=== PATIENT | male | born 1975 | race Caucasian/White ===

== ENCOUNTER 2020-08-13 11:00 | Outpatient (REF) | payer OTHER, SELFPAY | END 2020-08-13 11:01 | disposition home or self-care (01) | LOC: HO.LAB 11:00 | PROVIDERS: Visit Provider Internal Medicine | DX: Z20.828 Contact with and (suspected) exposure to other viral communicable diseases (principal) | CPT/HCPCS: 87635 ==

== ENCOUNTER 2023-02-14 12:46 | Emergency (ER) | payer OTHER, SELFPAY ==
[2023-02-14 13:03] VITALS: BP 129/85; PULSE 107; RESP 17; TEMP 36.9; O2SAT 100; BMI 27.1
--- NOTE | 2023-02-14 13:12 | ED_ITS ---
HPI - General Adult General Chief complaint: General Medical Stated complaint: multiple issues Time Seen by Provider: 02/14/23 13:06 Source: patient Mode of arrival: ambulatory Limitations: no limitations History of Present Illness HPI narrative: [age] year old male came in for painful penile erection since 06:00 (7 hours ago). Had sexual intercourse with his partner erection remained after intercourse until now, patient had similar episode several times in the past needed to be drained 1 time in the past, patient declined using any sexual stimulating medication. Related Data Allergies Allergy/AdvReac Type Severity Reaction Status Date / Time No Known Allergies Allergy Unverified 07/04/20 16:21 [No Known Allergies*] Review of Systems Review of Systems: All other systems are reviewed and are negative Constitutional: Reports as per HPI and Reports no additional constitutional complaints Eyes: Reports as per HPI and Reports no additional eye complaints Reports system reviewed and no additional complaints, except as documented Cardiovascular: Reports as per HPI and Reports no additional cardiovascular complaints Respiratory: Reports as per HPI and Reports no additional respiratory complaints Gastrointestinal: Reports as per HPI and Reports no additional gastrointestinal complaints Genitourinary: Reports no additional female genitourinary complaints Musculoskeletal: Reports no additional musculoskeletal complaints Skin/Breast: Reports system reviewed and no additional complaints, except as docu Psychiatric: Reports no additional psychiatric complaints Endocrine: Reports no additional endocrine complaints Hematologic/Lymphatic: Reports no additional hematologic/lymphatic complaints Allergic/Immunologic: Reports no additional allergic/immunologic complaints Reports system reviewed and no additional complaints, except as documented and Reports Abnormal speech present [facility] Social History Social History Alcohol intake: never Smoked in Last 30 Days: Yes Use of substances other than those prescribed or required for medical reasons: No Advance Directives: No Advance Directives Information Provided: Yes Physical Exam ED Vital Signs: Vital Signs - 24 hr 02/14/23 13:03 Temperature 98.4 F Pulse Rate 107 H Respiratory Rate 17 Blood Pressure 129/85 Pulse Oximetry 100 Oxygen Delivery Method Room Air BMI result Body Mass Index 27.1 Vital signs have been reviewed as appeared to be correct. Blood pressure normal. Heart rate normal. Respiration rate normal. Temperature normal. Oxygen saturation normal. Appearance: Alert. Oriented X3. No acute distress. Head: Normal external exam. Normocephalic. Atraumatic. No Leon signs noted. No raccoon eyes noted Eyes: PERRLA. EOMI. Conjunctiva and sclera normal. Eyelids normal. ENT: TM's Normal. Pharynx normal. Uvula midline. Moist mucous membranes. No trismus noted. No drooling noted. No muffled voice noted. Neck: Normal inspection. Neck supple. FROM. No adenopathy. Thyroid Normal. No meningeal signs. No neck mass noted. CVS: Normal heart rate and rhythm. Heart sound normal. No murmurs noted. Pulses normal throughout. Respiratory: No respiratory distress. Painless inspiration. Breath sounds normal. No wheezes/rales/rhonchi noted. Chest nontender. No accessory muscle usage noted or decreased air movement noted. Abdomen: Soft and nontender. Bowel sounds normal in all 4 quadrants. No distention noted. No organomegaly noted. No visible injury noted. exam: Uncircumcised, incomplete reduction of the penis that is tender to touch, no testicular swelling or tenderness. Back: No CVA tenderness. Full range of motion noted. Skin: Skin warm and dry. Normal skin color. Normal skin turgor. No rashes/lesions/lacerations noted. Extremities: No lower extremity edema. Extremities exhibit normal range of motion. Extremities nontender. Neuro: Oriented X 3. Cranial nerve exam: II-XII are grossly intact No motor deficit. No sensory deficit. Reflexes normal. Course Course Course Narrative: 47-year-old male with history of priapism came in with about 7 hours of painful erection, patient was given terbutaline subQ in the emergency department and oxycodone and also after applying ice. With complete resolve of the priapism. Medical Decision Making Differential Diagnosis Differential Diagnoses: The differential diagnosis associated with the presentation includes (Priapism) Discharge Plan Discharge Clinical Impression: Priapism Patient Disposition: Home, Self-Care Instructions: Priapism (ED) Additional Instructions: Follow-up with your urologist as scheduled. Referrals: Snow Velasquez MD [Primary Care Provider] -
--- NOTE | 2023-02-14 13:34 | PC.NURSE ---
pt ate half of cup of jello and had some water.
[2023-02-14] MEDS: oxyCODONE HCl Immed Release 5 MG TABLET PO (14:15)
[2023-02-14] MEDS: Terbutaline Sulfate 1 MG/ML VIAL 0.25 MG SUBCUT (14:16)
[2023-02-14 14:59] VITALS: BP 131/79; PULSE 112; RESP 16; O2SAT 98
== END 2023-02-14 15:08 | disposition home or self-care (01) ==
PROVIDERS: Emergency Provider Emergency Medicine; PCP Internal Medicine
DX: N48.30 Priapism, unspecified (principal); N48.89 Other specified disorders of penis
CPT/HCPCS: 99283; 99284

== ENCOUNTER 2023-03-15 09:27 | Emergency (ER) | payer OTHER, SELFPAY ==
[2023-03-15 09:36] VITALS: BP 130/79; PULSE 115; RESP 19; TEMP 36.6; O2SAT 97; BMI 27.4
--- NOTE | 2023-03-15 09:54 | PC.NURSE ---
Pt reporting priapism is happening every other morning, and no medications are helping anymore. He reports that he is in 10/10 pain, is able to urinate but does cause some difficulty. PT reporting this is now affecting his quality of life and needs to find out what is causing this to happen so frequently. Reports that sometimes sexual activity will help but not always, and that it mostly happens in the morning when he wakes up.
[2023-03-15 10:12] VITALS: PULSE 95; O2SAT 98
[2023-03-15] MEDS: oxyCODONE HCl Immed Release 5 MG TABLET PO (10:46)
[2023-03-15] MEDS: Terbutaline Sulfate 1 MG/ML VIAL 0.25 MG SUBCUT (10:47)
[2023-03-15] MEDS: Lidocaine HCl 1 % MPF 30 ML VIAL 10 ML SUBCUT (10:48)
[2023-03-15 11:50] VITALS: BP 131/76; PULSE 109; RESP 16; TEMP 37; O2SAT 97
--- NOTE | 2023-03-15 11:55 | ED_ITS ---
HPI - Male Genitourinary General Chief complaint: Urogenital-Male Stated complaint: Priapism Time Seen by Provider: 03/15/23 09:58 Source: patient Mode of arrival: ambulatory Limitations: no limitations History of Present Illness HPI Narrative: 47-year-old male presents with painful erection since approximately 6:00 a.m. this morning. Patient has history of idiopathic priapism. He took terbutaline prior to arrival. Currently he has a pain level that as a 10/10. There is no clear relieving or exacerbating features. He denies any urinary frequency, urgency or dysuria. This is similar to previous episodes. Pain that he does not radiate. The pain is pressure and feels like something is going to explode. Related Data Allergies Allergy/AdvReac Type Severity Reaction Status Date / Time No Known Allergies Allergy Verified 03/15/23 09:35 [No Known Allergies*] Review of Systems Review of Systems: CONSTITUTIONAL: Denies weight loss, fever and chills. HEENT: Denies changes in vision and hearing. RESPIRATORY: Denies SOB and cough. CV: Denies palpitations no CP. GI: Denies abdominal pain, nausea, vomiting and diarrhea. : Denies dysuria and urinary frequency. MSK: Denies myalgia and joint pain. SKIN: Denies rash and pruritus. NEUROLOGICAL: Denies headache and syncope. PSYCHIATRIC: Denies recent changes in mood. Denies anxiety and depression. All other ROS are negative unless in HPI [facility] Social History Social History Alcohol intake: current Alcohol type: beer Smoked in Last 30 Days: No Use of substances other than those prescribed or required for medical reasons: Yes Substance Use Type: Marijuana Advance Directives: No Advance Directives Information Provided: Yes Physical Exam Vital Signs: Vital Signs: Last Vital Signs Temp 98.6 F 03/15/23 11:50 Pulse 100 03/15/23 13:05 Resp 16 03/15/23 13:08 BP 129/76 03/15/23 13:05 Pulse Ox 97 03/15/23 11:50 O2 Del Method Room Air 03/15/23 11:50 BMI result Body Mass Index 27.4 GEN: Well developed, no acute distress, alert, oriented HEENT: Normocephalic, atraumatic, normal external ears, nose appears normal Eyes: Normal to appearance Neck: Supple, no lymphadenopathy Respiratory: Talks in complete sentences, no respiratory distress : Persistent erection, tender to palpation, no deformities, erythematous changes Extremities: No clubbing cyanosis or edema Neurologic: No focal neurologic deficits, cranial nerves 2-12 intact, gait normal Skin: No rash Course Course Course Narrative: Patient presents with priapism. Took oral terbutaline at home which did not improve his symptoms. There is no demonstrable evidence that oral terbutaline does help for priapism. Will attempt subcutaneous terbutaline however. This is not effective, will withdraw blood and inject phenylephrine. Patient is aware of this. Also will provide the patient with a dorsal nerve block for symptomatic relief. Reevaluation(s) Reevaluation #1: doing much better after phenylapherine. Wll d/c now. follow up with urology. Time: 13:36 Medications Administered Discontinued Medications Generic Name Dose Route Start Last Admin Trade Name Freq PRN Reason Stop Dose Admin Hydromorphone HCl 0.5 mg 03/15/23 12:50 03/15/23 13:08 Hydromorphone Hcl 0.5 Mg/0.5 Ml Syringe IVPUSH 03/15/23 12:51 0.5 mg ONCE ONE Administration Protocol Lidocaine HCl 10 ml 03/15/23 10:45 03/15/23 10:48 Lidocaine Hcl 1 % Mpf 30 Ml Vial SUBCUT 03/15/23 10:46 10 ml ONCE ONE Administration Oxycodone HCl 5 mg 03/15/23 10:21 03/15/23 10:46 Oxycodone Hcl Immed Release 5 Mg Tablet PO 03/15/23 10:22 5 mg ONCE ONE Administration Phenylephrine HCl 0 mg 03/15/23 12:15 03/15/23 13:05 Phenylephrine Hcl 10 Mg/Ml Vial INTRACAVER 03/15/23 12:16 10 mg ONCE ONE Administration Terbutaline Sulfate 0.25 mg 03/15/23 10:21 03/15/23 10:47 Terbutaline Sulfate 1 Mg/Ml Vial SUBCUT 03/15/23 10:22 0.25 mg ONCE ONE Administration Medical Decision Making Medical Decision Making MDM Narrative: Patient presents with priapism, etiology is unclear. See coarse Differential Diagnosis Differential Diagnoses: The differential diagnosis associated with the pres entation includes (Priapism) Priapism Admission/Observation Consideration of admission/observation: Escalation of care including admission/observation considered External Record Review Previous emergency visit Prescription Management I considered prescription management with: Pain Medication Procedures Nerve Block Nerve Block 1: Time out performed: Yes Local Anesthetic: lidocaine 1% Nerve Blocks: other (Dorsal nerve penis) Procedure Successful: Yes Patient Tolerated Procedure: well Complications: none Penile Procedure Time Out Performed: Yes Indication: priapism management Procedural Sedation: No Local Anesthesia Used: lidocaine 1% without epi Amount of anesthesia used (mL): 2 Priapism Management: aspiration and phenylephrine injection Patient Tolerated Procedure: well and no complications Complications: none Discharge Plan Discharge Clinical Impression: Priapism Patient Disposition: Home, Self-Care Instructions: Priapism (ED) Referrals: Kalpesh Mathew MD [Physician] -
[2023-03-15 13:05] VITALS: BP 129/76; PULSE 100
[2023-03-15] MEDS: Phenylephrine HCL 10 MG/ML VIAL INTRACAVER (13:05)
[2023-03-15 13:08] VITALS: RESP 16
[2023-03-15] MEDS: HYDROmorphone HCl 0.5 MG/0.5 ML SYRINGE IVPUSH (13:08)
== END 2023-03-15 14:13 | disposition home or self-care (01) ==
PROVIDERS: Emergency Provider Emergency Medicine; PCP Internal Medicine
DX: N48.30 Priapism, unspecified (principal); N48.89 Other specified disorders of penis
CPT/HCPCS: 54220; 96372; 96374; 99284; J1170; J2370

== ENCOUNTER 2023-10-13 19:54 | Emergency (ER) | payer OTHER, SELFPAY ==
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
[2023-10-13 20:08] VITALS: BP 136/91; PULSE 102; O2SAT 99
[2023-10-13 20:13] VITALS: BMI 26.1
[2023-10-13 20:18] VITALS: BP 122/70; PULSE 91; RESP 16; TEMP 36.6; O2SAT 97
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
[2023-10-13] MEDS: Ketorolac Tromethamine 30 MG/ML VIAL IM (21:13)
[2023-10-13] MEDS: Morphine Sulfate 10 MG/ML CARTRIDGE 8 MG IM (21:14)
[2023-10-13] MEDS: oxyCODONE HCl Immed Release 5 MG TABLET PO (22:36)
[2023-10-13] MEDS: Acetaminophen 325 MG TABLET 975 MG PO (22:36)
== END 2023-10-13 22:52 | disposition home or self-care (01) ==
PROVIDERS: Emergency Provider Emergency Medicine; PCP Internal Medicine
DX: S46.912A Strain of unspecified muscle, fascia and tendon at shoulder and upper arm level, left arm, initial encounter (principal); G89.11 Acute pain due to trauma; R07.89 Other chest pain; V43.52XA Car driver injured in collision with other type car in traffic accident, initial encounter; Y93.9 Activity, unspecified; Y92.9 Unspecified place or not applicable; Y99.9 Unspecified external cause status
CPT/HCPCS: 71046; 73030; 96372; 99284; J1885; J2270

== ENCOUNTER 2023-12-08 16:42 | Emergency (ER) | payer OTHER, SELFPAY ==
--- NOTE | ~2023-12-08 | XR_ITS ---
EXAMINATION: XR CHEST CLINICAL INFORMATION: Cough. COMPARISON: Chest radiograph 10/13/2023. TECHNIQUE: Frontal view of the chest was obtained. FINDINGS: Mild interstitial prominence. No focal consolidation, pleural effusion or pneumothorax. Normal heart size. No acute osseous findings. Visualized upper abdomen is within normal limits. XR/XR chest 1V IMPRESSION: Findings suggesting mild small airways disease without consolidation or pleural effusion.
--- NOTE | 2023-12-08 17:06 | ED.FEVER ---
HPI - Fever General Chief Complaint: Upper Respiratory Symptoms Stated Complaint: fever since wednesday, body aches, vomiting Time Seen by Provider: 12/08/23 19:18 Source: patient Mode of arrival: ambulatory Limitations: no limitations History of Present Illness HPI Narrative: 48-year-old male presents to the ED for coughing, body aches, rhinorrhea, sneezing, since Wednesday. Patient states also fibromyalgia exacerbation. Patient denies any chest pain, shortness of breath, or coughing up blood. Patient states no one at home sick. Related Data Previous Rx's Medication Instructions Recorded ibuprofen 600 mg tablet 600 mg PO Q6H PRN pain #14 tabs 10/13/23 oxycodone 5 mg tablet 5 mg PO Q6H PRN pain #8 tabs 10/13/23 benzonatate 200 mg capsule 200 mg PO TID PRN cough 5 days #15 12/08/23 caps naproxen 500 mg tablet 500 mg PO BID PRN pain 7 days #14 12/08/23 tabs Allergies Allergy/AdvReac Type Severity Reaction Status Date / Time No Known Allergies Allergy Verified 12/08/23 17:06 [No Known Allergies*] Review of Systems Review of Systems: URI symptoms sneezing dry cough rhinorrhea Yes all other systems are reviewed and are negative [facility] Social History Social History Alcohol intake: current Alcohol type: beer Substance Use Type: Marijuana Advance Directives: No Advance Directives Information Provided: Yes Physical Exam Vital Signs: Vital Signs: Last Vital Signs Temp 102.1 F H 12/08/23 20:18 Pulse 120 H 12/08/23 20:18 Resp 20 12/08/23 20:18 BP 123/74 12/08/23 20:18 Pulse Ox 94 12/08/23 20:18 O2 Del Method Room Air 12/08/23 20:18 BMI result Body Mass Index 25.8 Const: General: cooperative, healthy appearing, comfortable, no acute distress, well developed, alert, awake and Physically active Orientation/consciousness: oriented to person, oriented to place, oriented to time and patient oriented x3 HEENT: Head: Yes normal to inspection, Yes No palpable skull fracture present, Yes normocephalic, Yes atraumatic and No abrasion Ears: hearing grossly normal bilaterally, external ears normal, TM's normal bilaterally, TM normal on the right, TM normal on the left, EAC's normal, mastoids normal and no periauricular adenopathy Throat: Yes posterior oropharynx normal, Yes tonsils normal and Yes uvula midline Eyes: General: appearance normal, both eyes and all related structures Neck: Neck: Yes normal visual inspection, Yes full ROM, Yes no lymphadenopathy, Yes no meningeal signs, Yes trachea midline, Yes supple, No anterior neck swelling and No tender Chest: Chest palpation & inspection: normal inspection of the chest and normal palpation of entire chest wall Resp: Effort & Inspection: normal respiratory effort and able to speak in complete sentences Auscultation: clear to auscultation bilaterally Cardio: Jugular venous distension: no JVD Heart sounds: S1 normal heart sound present and S2 normal heart sound present GI: Inspection: Yes normal to inspection Palpation (GI): Soft to palpation, not firm, nontender, no guarding and not rigid : General: No CVA tenderness and Yes no CVA tenderness Back/Spine/Pelvis: Back: no CVA tenderness, No CVA tenderness and No back tenderness Skin: General skin exam: no rashes or lesions noted, elasticity normal and turgor normal Neuro: General: oriented to person, oriented to place, oriented to time, patient oriented x3, gait normal, tone normal, moves all extremities, Normal light touch and pain sensation, no meningeal signs, no focal motor deficits, CN's II-XI intact bilaterally and normal sensation to monofilament Extrem: General: Yes normal to inspection, Yes full ROM and Yes capillary refill normal Psych: Appearance: grossly normal, well kempt and not disheveled Course Course Course Narrative: RME: 48 year-old M w/PMHx Fibromyalgia presenting to the ED c/o fever (Tmax 102), myalgias, SOB, dry cough/sneezing & sore throat x Wednesday. denies sick contacts. Took 2 COVID tests at home which were negative. Took NyQuil around 1PM & Percocet around 2PM (for body aches). Febrile and tachycardic in triage likely from viral etiology. Low suspicion for severe sepsis viral testing, rapid strep, CXR Full HPI, ROS and PE to be performed by primary ED provider. Medications Administered Discontinued Medications Generic Name Dose Route Start Last Admin Trade Name Freq PRN Reason Stop Dose Admin Benzonatate 200 mg 12/08/23 20:21 12/08/23 20:40 Benzonatate 100 Mg Capsule PO 12/08/23 20:22 200 mg ONCE ONE Administration Ibuprofen 800 mg 12/08/23 20:21 12/08/23 20:39 Ibuprofen 800 Mg Tablet PO 12/08/23 20:22 800 mg ONCE ONE Administration Medical Decision Making Medical Decision Making [facility] Narrative: 48-year-old male presents to the ED with URI symptoms. Patient has positive flu. Symptoms since Wednesday. Patient denied any distress. Febrile tachy from viral syndrome will give Motrin and Tessalon Perles. Patient explained worrisome signs and informed to return to the ED if she has them. Differential Diagnosis Differential Diagnoses: The differential diagnosis associated with the presentation includes (COVID, influenza, RSV) Admission/Observation Consideration of admission/observation: Escalation of care including admission/observation considered Lab Data [facility] Lab Attestation statement: I reviewed the patient's lab results. Labs: Lab Results 12/08/23 Range/Units 17:37 Influenza Type A (PCR) POSITIVE A (Negative) Influenza Type B (PCR) NEGATIVE (Negative) RSV RNA Qual (PCR) NEGATIVE (Negative) SARS-CoV-2 RNA (RT-PCR) NEGATIVE (Negative) S. pyogenes GrpA DONTE Negative (Negative) Independent Interpretation I performed an independent interpretation of an: Plain X-Ray Radiology Impression Discussion of test interpretation with radiology: I have reviewed the radiologist's reading. Prescription Management I considered prescription management with: Other (Tessalon Perles, Motrin) Discharge Plan Discharge Clinical Impression: Influenza Patient Disposition: Home, Self-Care Instructions: Influenza (ED) Additional Instructions: You came back positive for the flu. Recommend rest and oral hydration. Recommend follow-up with primary care provider. Return to the ED immediately for any chest pain, shortness of breath, weakness, dizziness, coughing up blood, or any other concerning symptoms. Prescriptions: New naproxen 500 mg tablet 500 mg PO BID PRN (Reason: pain) 7 Days Qty: 14 0RF benzonatate 200 mg capsule 200 mg PO TID PRN (Reason: cough) 5 Days Qty: 15 0RF No Action oxycodone 5 mg tablet 5 mg PO Q6H PRN (Reason: pain) Qty: 8 0RF Rx Instructions: Partial Fill upon patient request. ibuprofen 600 mg tablet 600 mg PO Q6H PRN (Reason: pain) Qty: 14 0RF Stand Alone Forms: Work/School Release Interventions: ED Discharge Assessment Last Done: 12/08/23 20:43 Discharge Date/Time: 12/08/23 20:44 Print Language: Uzbek
[2023-12-08 17:07] VITALS: BP 113/72; PULSE 118; RESP 16; TEMP 38.2; O2SAT 98; BMI 25.8
[2023-12-08 17:51] LABS: IDNOW Serial# 08D9AD1C; Strep A Nucleic Acid Negative (Negative)
[2023-12-08 18:24] LABS: Influenza A PCR POSITIVE (Negative); Influenza B PCR NEGATIVE (Negative); Resp Syncy Virus RNA Qual PCR NEGATIVE (Negative); SARS COV2 PCR INHOUSE NEGATIVE (Negative)
[2023-12-08 20:18] VITALS: BP 123/74; PULSE 120; RESP 20; TEMP 38.9; O2SAT 94
[2023-12-08] MEDS: Ibuprofen 800 MG TABLET PO (20:39)
[2023-12-08] MEDS: Benzonatate 100 MG CAPSULE 200 MG PO (20:40)
== END 2023-12-08 20:44 | disposition home or self-care (01) ==
PROVIDERS: Physician Assistant; Emergency Provider Internal Medicine
DX: J10.1 Influenza due to other identified influenza virus with other respiratory manifestations (principal); R05.9 Cough, unspecified; R50.9 Fever, unspecified; Z11.52 Encounter for screening for COVID-19
CPT/HCPCS: 0241U; 71045; 87651; 99283

== ENCOUNTER 2023-12-10 22:10 | Emergency (ER) | payer OTHER, SELFPAY ==
--- NOTE | ~2023-12-10 | XR_ITS ---
EXAMINATION: XR CHEST CLINICAL INFORMATION: Cough and congestion. COMPARISON: 12/08/2023. TECHNIQUE: Frontal view of the chest was obtained. FINDINGS: The cardiomediastinal silhouette is stable. There is bilateral bronchial thickening. There is no focal consolidation or pleural effusion. The bony structures and soft tissues are unremarkable. XR/XR chest 1V IMPRESSION: Bilateral bronchial thickening may be seen with bronchitis. No focal consolidation.
--- NOTE | ~2023-12-10 | XR_ITS ---
EXAMINATION: XR KNEE, LEFT CLINICAL INFORMATION: Fall. Knee pain. COMPARISON: None available. TECHNIQUE: Four views of the left knee. FINDINGS: No fracture or joint effusion. Alignment is anatomic. Joint spaces are maintained. No abnormal soft tissue calcification. XR/XR knee LT 3V IMPRESSION: Normal left knee.
[2023-12-10 23:28] VITALS: BP 114/70; PULSE 95; RESP 18; TEMP 37.2; O2SAT 98; BMI 25.8
--- NOTE | 2023-12-11 00:02 | MHC.EDTECH ---
Patient brought into triage area,labs,covid,and flu obtained and sent to lab.
[2023-12-11 00:26] LABS: Basophils Percent Auto 0.4 % (0-2); Eosinophils Percent Auto 0.4 % (0-4); Hematocrit 44.5 % (42.0-52.0); Hemoglobin 15.8 g/dl (14.0-18.0); Imm Gran Abs Auto 0.01 X10*3/uL (0.00-0.03); Imm Gran Pct Auto 0.2 % (0.0-0.4); Lymphocytes Absolute Auto 1.9 X10*3/uL (1.2-4.9); Lymphocytes Percent Auto 39.1 % (20-40); MANUAL DIFF FLAG NO; Mean Corpuscular HGB Conc 35.5 g/dl (31.0-36.0); Mean Corpuscular Hemoglobin 29.3 pg (27.0-33.0); Mean Corpuscular Volume 82.6 fL (80.0-98.0); Mean Platelet Volume 11.9 fL (9.4-12.4); Monocytes Absolute Auto 0.6 X10*3/uL (0.1-1.2); Monocytes Percent Auto 12.9 % (2-11); Neutrophils Absolute Auto 2.2 x10*3/uL (2.0-8.3); Platelet Count 143 X10*3/uL (160-400); Red Blood Count 5.39 X10*6/uL (4.60-5.80); Red Cell Distribution Width 13.1 % (11.0-16.0); White Blood Count 4.7 X10*3/uL (4.8-10.8)
[2023-12-11 00:39] LABS: IDNOW Serial# 9DB6401D; Influenza A Positive (Negative)
[2023-12-11 00:42] LABS: Alanine Aminotransferase 43 U/L (0-40); Albumin Level 3.7 g/dL (3.5-5.0); Alkaline Phosphatase 82 U/L (39-117); Anion Gap 16 (12-20); Aspartate Amino Transferase 39 U/L (5-37); Bilirubin Total 0.3 mg/dL (0.0-1.0); Blood Urea Nitrogen 18 mg/dL (9-16); Calcium 8.7 mg/dL (8.4-10.2); Carbon Dioxide 17 mmol/L (22-29); Chloride 108 mmol/L (96-108); Estimated Glomerular Filt Rate > 60; Glucose Random 88 mg/dL (60-115); Sodium 138 mmol/L (135-145); Total Protein 6.8 g/dL (6.5-8.0)
[2023-12-11 00:43] LABS: COVID-19 Test Negative (Negative); IDNOW Serial# 58CA691E; Influenza B2 Negative (Negative)
--- NOTE | 2023-12-11 02:08 | PC.NURSE ---
pt extremely upset in regards to wait time; states he has extreme anxiety and it is unfair to leave him in the room an hour with no provider to see him. explained to the patient that it has been a very busy night and at this current time only one provider is on and seeing patients. visitor that was in the room then states I have to be at work for 4am we can't be staying here all night. attempted to talk to patient however he interrupts stating you can't just tell me to calm down and act like nothing is wrong. I have anxiety! again attempted to try to talk to patient to explain what I could do to help. pt then disengaged with this RN. laying in bed crying refusing to speak to this RN.
--- NOTE | 2023-12-11 03:26 | PC.NURSE ---
pt requesting to go AMA; very angry that he has been in the room for 2hrs without a provider seeing him. again I explained to him that it has been a very busy night with only one provider in the ER. he states that's fucking fine. I can't stay here. I'll just go home to . visitor states that she must leave as she has to be at work in 30min and she will not leave him alone. this RN spoke to provider, he is agreeable that pt can leave AMA. this RN encouraged pt to stay however he states he is leaving due to wait times. pt leaving AMA.
== END 2023-12-11 04:09 | disposition left against medical advice (07) ==
PROVIDERS: Emergency Provider Emergency Medicine
DX: R05.9 Cough, unspecified (principal); R09.89 Other specified symptoms and signs involving the circulatory and respiratory systems; M25.562 Pain in left knee; J02.9 Acute pharyngitis, unspecified; R53.1 Weakness; Z11.52 Encounter for screening for COVID-19
CPT/HCPCS: 71045; 73562; 80053; 85025; 87502; 87635; 99282; 99284

== ENCOUNTER 2024-04-09 10:34 | Emergency (ER) | payer OTHER, SELFPAY ==
[2024-04-09 10:43] VITALS: BP 126/86; PULSE 136; RESP 18; TEMP 36.7; O2SAT 100; BMI 25.6
[2024-04-09 11:17] VITALS: BP 125/88; PULSE 130; RESP 21; O2SAT 98
--- NOTE | 2024-04-09 11:20 | PC.NURSE ---
Reports right sided back pain radiating down right leg, has hx of severe sciatica, chronic issue for pt. Pt reports severe pain, 10/10 and priapism since 4am this morning (has extensive hx of priapism is followed through urology). Pt denies any new injury or fall. Alert and oriented, breathing even and elevated, appears very uncomfortable. Sinus tach on cardiac montior.
--- NOTE | 2024-04-09 11:38 | ED_ITS ---
HPI - General Adult General Chief complaint: General Medical Stated complaint: Pinched nerve Time Seen by Provider: 04/09/24 11:37 Source: patient, RN notes reviewed and old records reviewed Mode of arrival: ambulatory History of Present Illness ED Provider: Oneyda Castaneda PA-C HPI narrative: 47-year-old male with past medical history of idiopathic priapism, sciatica, presenting to the ED complaining painful or reaction since approximately 01:00AM (10 hours) in acute on chronic right-sided low back pain with radiation down RLE. Admits to taking to Terbutaline and 10 mg of Oxycodone about 2 hours [employer], with resolution of priapism 30 minutes prior to this sba underwriter's evaluation. Admits to similar symptoms in the past, reports issues. Present almost daily, no longer following with specialist. Reports associated numbness/tingling down RLE. Denies incontinence/retention, fever/chills, heavy lifting/trauma. Related Data Previous Rx's ?Medication ?Instructions ?Recorded ibuprofen 600 mg tablet 600 mg PO Q6H PRN pain #14 tabs 10/13/23 oxycodone 5 mg tablet 5 mg PO Q6H PRN pain #8 tabs 10/13/23 benzonatate 200 mg capsule 200 mg PO TID PRN cough 5 days #15 12/08/23 caps naproxen 500 mg tablet 500 mg PO BID PRN pain 7 days #14 12/08/23 tabs acetaminophen 500 mg tablet 500 mg PO Q6H PRN fever or pain 04/09/24 (Tylenol Extra Strength) #14 tabs cyclobenzaprine 10 mg tablet 10 mg PO TID PRN muscle spasm #14 04/09/24 tabs ketorolac 10 mg tablet 10 mg PO TID PRN pain 5 days #15 04/09/24 tabs lidocaine 5 % topical patch 1 patch topical DAILY PRN pain #30 04/09/24 (Lidoderm) ea Allergies Allergy/AdvReac Type Severity Reaction Status Date / Time No Known Allergies Allergy Verified 04/09/24 10:51 [No Known Allergies*] Review of Systems Review of Systems: Constitutional: No Fever, No Chills ENT/Mouth: No Ear Pain, No Nasal Congestion, No sore throat, No Rhinorrhea, No Swallowing Difficulty Cardiovascular: No Chest Pain, No SOB Respiratory: No Cough, No Sputum, No Wheezing Gastrointestinal: No Nausea, No Vomiting, No Diarrhea, No Constipation, No Abdominal pain Genitourinary: + priaprism, +Dysuria, No Urinary Frequency, No Hematuria, No Urinary Incontinence/retention, No Flank Pain Musculoskeletal: +back pain, No Myalgias, No Joint Swelling Skin: No Skin Lesions, No rash Neuro: No Weakness, + Numbness, + Paresthesias Yes all other systems are reviewed and are negative Constitutional: Constitutional: Reports as per HPI Neurologic: Denies Sensory deficit (Neuro) [facility] Past Medical History Attestation statement: The following information was validated with the patient. Source: old records reviewed Social History Social History Alcohol intake: current Alcohol type: beer Smoked in Last 30 Days: No Use of substances other than those prescribed or required for medical reasons: No Substance Use Type: Marijuana Advance Directives: No Advance Directives Information Provided: Yes Do you have a plan to hurt others: No Plan Physical Exam ED Vital Signs: Vital Signs - 24 hr 04/09/24 10:43 04/09/24 11:17 04/09/24 12:09 Temperature 98.0 F Pulse Rate 136 H 130 H Respiratory Rate 18 21 H 22 H Blood Pressure 126/86 125/88 Pulse Oximetry 100 98 Oxygen Delivery Method Room Air Room Air 04/09/24 13:08 04/09/24 13:46 04/09/24 13:57 Temperature 98.1 F 98.2 F 98.2 F Pulse Rate 116 H 107 H 107 H Respiratory Rate 38 H 29 H 22 H Blood Pressure 130/76 114/66 114/66 Pulse Oximetry 99 98 98 Oxygen Delivery Method Room Air Room Air Room Air BMI result Body Mass Index 25.6 Const General: cooperative, healthy appearing and no acute distress Orientation/consciousness: patient oriented x3 Limitations: no limitations HENMT Head: Yes normal to inspection and Yes atraumatic Ears: hearing grossly normal bilaterally General nose exam: Normal external nose present Face and sinus: Yes normal facial exam Eyes General: appearance normal, both eyes and all related structures EOM: EOMs intact bilaterally Neck Neck: Yes normal visual inspection and Yes no meningeal signs Resp Effort & Inspection: normal respiratory effort and no respiratory distress Cardio Rate: regular rate Heart sounds: S1 normal heart sound present and S2 normal heart sound present GI Inspection: Yes normal to inspection Palpation (GI): Soft to palpation, nontender, no guarding and not rigid Other: No priapism General: Yes no CVA tenderness Penis: normal penis, uncircumcised and foreskin retracts Scrotum: scrotum normal Testes: Testes normal Back/Spine/Pelvis Other: No midline cervical/thoracic/lumbar spinous tenderness/step-off or deformity. + right-sided lower lumbar and thoracic paraspinal/MSK reproducible tenderness to palpation. Back: no CVA tenderness Skin Rashes: no rashes Wounds: no wounds Neuro Other: Strength intact throughout. No saddle anesthesia. Sensation intact to light touch. Neurovascular intact distally General: patient oriented x3, tone normal, moves all extremities and no meningeal signs Cranial nerves: Yes CN's II-XII intact bilaterally Motor exam (neuro): 5/5 motor strength present throughout Sensory Exam: No Sensory deficit (Neuro) Extrem General: Yes normal to inspection Course Course Course Narrative: -1340--patient unable to supply urine sample. Reports this is typical for him. Reports symptomatic improvement after IV morphine, Toradol and Flexeril. Feels safe for discharge home at this time. Will refer to Urology and spine Medications Administered Discontinued Medications Generic Name Dose Route Start Last Admin Trade Name Freq PRN Reason Stop Dose Admin Cyclobenzaprine HCl 10 mg 04/09/24 12:47 04/09/24 12:54 Cyclobenzaprine Hcl 10 Mg Tablet PO 04/09/24 12:48 10 mg ONCE ONE Administration Ketorolac Tromethamine 15 mg 04/09/24 12:47 04/09/24 12:55 Ketorolac Tromethamine 15 Mg/Ml Vial IVPUSH 04/09/24 12:48 15 mg ONCE ONE Administration Lidocaine 1 patch 04/09/24 11:56 04/09/24 12:08 Lidocaine 4 % Patch Adh..Patch TRANSDERMA 04/09/24 11:57 1 patch ONCE ONE Administration Protocol Morphine Sulfate 4 mg 04/09/24 11:56 04/09/24 12:09 Morphine Sulfate 4 Mg/Ml Cartridge IVPUSH 04/09/24 11:57 4 mg ONCE ONE Administration Protocol Medical Decision Making Medical Decision Making MDM Narrative: 47-year-old male with past medical history of idiopathic priapism, sciatica, presenting to the ED complaining painful or reaction since approximately 01:00AM (10 hours) in acute on chronic right-sided low back pain with radiation down RLE. Resolution of priapism 30 minutes prior to this sba underwriter's evaluation. On exam uncomfortable, anxious/agitated, tachycardic likely from pain. Low suspicion for severe sepsis. Priapism resolved at present. No red flag symptoms or midline spinous tenderness. Reproducible MSK/paraspinal tenderness. No saddle anesthesia. Concern for idiopathic. Prism vs sciatica vs herniated disc vs MSK pain/strain. Lower suspicion for UTI/pyelo, renal stone, cauda equina/cord compression or epidural abscess Plan: EKG, UA, pain control Please refer to course for remaining clinical decision making, interpretation of labs/imaging results, and discussions with consultants and/or family members. Differential Diagnosis Differential Diagnoses: The differential diagnosis associated with the presentation includes As above Admission/Observation Consideration of admission/observation: Escalation of care including admission/observation considered Lab Data MDM Lab Attestation statement: I reviewed the patient's lab results. Independent Interpretation I performed an independent interpretation of an: EKG Radiology Impression Discussion of test interpretation with radiology: I have reviewed the radiologist's reading. External Record Review External record reviewed: Inpatient record, Office record, Outpatient record, Prior outpatient labs, Prior outpatient radiology, Primary care record and Outside ED record Tests considered The following testing was considered but not selected: As above Prescription Management I considered prescription management with: Pain Medication Chronic Conditions Patient?s care impacted by: Other Discharge Plan Discharge Clinical Impression: Priapism, Sciatica Patient Disposition: Home, Self-Care Instructions: Sciatica (ED), Priapism (ED) Additional Instructions: Please continue home prescribed medications. YOU NEED TO ESTABLISH CARE WITH A UROLOGIST. WE WILL ALSO REFER YOU TO SPINE SURGERY. PLEASE CALL TO MAKE APPOINTMENT Flexeril is a muscle relaxer, take at night as it makes you drowsy, do not drive, drink alcohol, or operate machinery while taking it Ketorolac as an anti-inflammatory / pain medication, take with food DO NOT TAKE BOTH KETOROLAC, IBUPROFEN, NAPROXEN, ALEVE THERE SIMILAR MEDICATIONS. ONLY TAKE 1 Lidoderm patches are numbing patches, apply to painful area In addition take Tylenol at home If symptoms persist or worsen, pain becomes unbearable, you developed urinary retention or incontinence, or weakness return to the ED Prescriptions: New cyclobenzaprine 10 mg tablet 10 mg PO TID PRN (Reason: muscle spasm) Qty: 14 0RF acetaminophen [Tylenol Extra Strength] 500 mg tablet 500 mg PO Q6H PRN (Reason: fever or pain) Qty: 14 0RF ketorolac 10 mg tablet 10 mg PO TID PRN (Reason: pain) 5 Days Qty: 15 0RF lidocaine [Lidoderm] 5 % adhesive patch,medicated 1 patch topical DAILY MDD remove after 12 hours PRN (Reason: pain) Qty: 30 0RF Rx Instructions: leave on most painful area for up to 12 hrs No Action oxycodone 5 mg tablet 5 mg PO Q6H PRN (Reason: pain) Qty: 8 0RF Rx Instructions: Partial Fill upon patient request. ibuprofen 600 mg tablet 600 mg PO Q6H PRN (Reason: pain) Qty: 14 0RF naproxen 500 mg tablet 500 mg PO BID PRN (Reason: pain) 7 Days Qty: 14 0RF benzonatate 200 mg capsule 200 mg PO TID PRN (Reason: cough) 5 Days Qty: 15 0RF [place] [facility] [place]] [facility] [place]] Interventions: ED Discharge Assessment Last Done: 04/09/24 13:57 Discharge Date/Time: 04/09/24 13:59 Print Language: Libyan
--- NOTE | 2024-04-09 12:04 | ECG_ITS ---
Test Reason : TACHYCARDIA Blood Pressure : / mmHG Vent. Rate : 118 BPM Atrial Rate : 118 BPM P-R Int : 138 ms QRS Dur : 090 ms QT Int : 324 ms P-R-T Axes : 060 018 035 degrees QTc Int : 454 ms Sinus tachycardia Otherwise normal ECG No previous ECGs available Referred By: Oneyda Castaneda Electronically Signed By:MARTHA LOPEZ MD
[2024-04-09] MEDS: Lidocaine 4 % Patch ADH..PATCH 1 PATCH TRANSDERMA (12:08)
[2024-04-09 12:09] VITALS: RESP 22
[2024-04-09] MEDS: Morphine Sulfate 4 MG/ML CARTRIDGE IVPUSH (12:09)
[2024-04-09] MEDS: Cyclobenzaprine HCl 10 MG TABLET PO (12:54)
[2024-04-09] MEDS: Ketorolac Tromethamine 15 MG/ML VIAL IVPUSH (12:55)
[2024-04-09 13:08] VITALS: BP 130/76; PULSE 116; RESP 38; TEMP 36.7; O2SAT 99
[2024-04-09 13:46] VITALS: BP 114/66; PULSE 107; RESP 29; TEMP 36.8; O2SAT 98
[2024-04-09 13:57] VITALS: BP 114/66; PULSE 107; RESP 22; TEMP 36.8; O2SAT 98
== END 2024-04-09 13:59 | disposition home or self-care (01) ==
PROVIDERS: Emergency Provider Emergency Medicine
DX: N48.30 Priapism, unspecified (principal); M54.30 Sciatica, unspecified side; M54.50 Low back pain, unspecified; R00.0 Tachycardia, unspecified
CPT/HCPCS: 93005; 96374; 96375; 99284; 99285; J1885; J2270

== ENCOUNTER → 2024-04-09 12:04 | Outpatient (BNV) | payer OTHER, SELFPAY | PROVIDERS: Emergency Provider Emergency Medicine; Visit Provider Internal Medicine Cardiovascular Disease | DX: R00.0 Tachycardia, unspecified (principal) | CPT/HCPCS: 93010 ==

== ENCOUNTER 2024-06-06 10:05 | Outpatient (AMB) | payer OTHER, SELFPAY ==
--- NOTE | 2024-06-06 10:08 | MHC.OFFVIS ---
Intake Visit Reasons: paraprism Intake Note: New Patient presents for initial visit for Priapism Urology Medications: Terbutaline Blood Thinner: none Production Tech Required: No Accompanied by: Self / Same As Patient Allergies No Known Allergies [No Known Allergies*] Allergy (Verified 06/06/24 11:18) Medication List - Last Reconciled 06/06/24 by COURTNEY GamboaP-BC acetaminophen (Tylenol Extra Strength) 500 mg PO Q6H PRN benzonatate 200 mg PO TID PRN 5 days cyclobenzaprine 10 mg PO TID PRN ibuprofen 600 mg PO Q6H PRN ketorolac 10 mg PO TID PRN 5 days lidocaine 5% (Lidoderm) 1 patch topical DAILY PRN MDD remove after 12 hours lurasidone 20 mg PO DAILY naproxen 500 mg PO BID PRN 7 days oxycodone 5 mg PO Q6H PRN terbutaline 5 mg PO DAILY HPI Comments Details: Vinnie is a 49-year-old male patient. He has a past medical history of fibromyalgia and depression. He presents to the office today as a new patient for priapism. In discussion with the patient today reports a very longstanding history of priapism. He reports previously following up with [facility] as well as [facility] and has undergone multiple workups for leukemia as well as sickle cell anemia. He reports having been offered penile home injections however is not able to self administer therefore and moments of priapism he seeks medical treatment. He discusses having followed up with [place] [facility] approximately 2 months ago however after 30 minutes of arrival to ER proapism self resolved however in review of patient's chart it appears he has multiple ER visits 02/07 and 03/09 requiring terbutaline subQ, aspiration, and or phenylephrine injection. He reports having trialed OTC phenylephrine as well as other remedies without improvement. He reports utilizing terbutaline at home and feels this is somewhat helpful however has still had breakthrough episodes. I was able to obtain previous urology records from [facility] that notes patient with a new onset of prior prism 07/29/2022 likely secondary to chronic trazodone use treated and ER with cavernosal aspiration in administration of phenylephrine. However, patient discusses this information to be inaccurate. In review of patient's previous urological records it appears he has a history of pyelonephritis, urinary tract infection, and genital warts. Documentation states CBC demonstrates no concerns. Discussed at length potential causes of spontaneous priapism as well as further assessment evaluation with penile doppler. He does endorse to occasional alcohol consumption as well as taking oxycodone for chronic back pain and fibromyalgia. He denies any bothersome urinary issues or concerns. He otherwise offers no other issues or concerns at this time. [facility] Social History Alcohol intake: current Alcohol type: beer Substance Use Type: Marijuana Review of Systems Const All systems reviewed & are unremarkable except as noted in HPI and below Physical Exam Const General: cooperative, comfortable, no acute distress, well developed, alert and awake Orientation/consciousness: patient oriented x3 HEENT Head: Yes normal to inspection, Yes normocephalic and Yes atraumatic Ears: hearing grossly normal bilaterally Eyes General: appearance normal, both eyes and all related structures Neck Neck: Yes normal visual inspection and Yes trachea midline Chest Chest palpation & inspection: normal inspection of the chest Resp Effort & Inspection: normal respiratory effort and able to speak in complete sentences Cardio Rate: regular rate GI Inspection: Yes normal to inspection General: Yes no CVA tenderness Back/Spine/Pelvis Back: no CVA tenderness Skin General skin exam: no rashes or lesions noted Neuro General: patient oriented x3 Extrem General: Yes normal to inspection Psych Appearance: grossly normal and well kempt Mental Status: mental status grossly normal Speech and movement: Normal speech and movement present and Clear speech present Affect: normal affect Attitude: cooperative Thought process: Normal thought process present Thought content: Normal thought content present Insight: Fair insight present (Psych) Judgement: Fair judgement present (Psych) Results AMB Urinalysis, Automated UA Leukoctes 0 Mily/uL Last Edit by Luma Saunders on 06/06/24 10:43 UA Nitrite Negative Last Edit by Luma Saunders on 06/06/24 10:43 UA Urobilinogen 0.2 mg/dL Last Edit by Luma Saunders on 06/06/24 10:43 UA Protein 0 mg/dL Last Edit by Luma Saunders on 06/06/24 10:43 UA pH 8.0 Last Edit by Luma Saunders on 06/06/24 10:43 UA Blood 0 Cristobal/uL Last Edit by Luma Bnetonmagdaleno on 06/06/24 10:43 UA Specific Slater 1.010 Last Edit by Luma Bentonmagdaleno on 06/06/24 10:43 UA Ketone Negative Last Edit by Luma Bentonmagdaleno on 06/06/24 10:43 UA Bilirubin 0 mg/dL Last Edit by Luma Bentonmagdaleno on 06/06/24 10:43 UA Glucose 0 mg/dL Last Edit by Ayaankellenhi Bentonmagdaleno on 06/06/24 10:43 Results Reviewed Results Reviewed: Laboratory Last Values Urine pH (Auto) 8.0 06/06/24 10:42 Specific Slater (Auto) 1.010 06/06/24 10:42 Urine Protein (Auto) 0 mg/dL 06/06/24 10:42 Glucose (UA)(Auto) 0 mg/dL 06/06/24 10:42 Urine Ketones (Auto) Negative 06/06/24 10:42 Urine Blood (Auto) 0 Cristobal/uL 06/06/24 10:42 Urine Nitrite (Auto) Negative 06/06/24 10:42 Urine Bilirubin (Auto) 0 mg/dL 06/06/24 10:42 Urine Urobilinogen (Auto) 0.2 mg/dL 06/06/24 10:42 Leukocyte Esterase (Auto) 0 Mily/uL 06/06/24 10:42 Assessment & Plan Assessment & Plan (1) Priapism: Code(s): N48.30 - Priapism, unspecified Category: Medical Plan In office this results reviewed with the patient today; as noted above. Discussed at length potential treatment options for priapism. Will obtain penile Doppler for further assessment evaluation. Start 5 mg of Cialis 3 times per week. Will obtain CBC and sickle cell screening. Discussed lifestyle modifications to assist with priapsim. He currently denies any bothersome urinary issues. He reports be happy with current voiding parameters. Follow-up in 1-3 months with imaging and labs to be completed prior; or sooner with any issues, concerns, and or questions. Orders: Orders US penile Today N48.30 - Priapism, unspecified AMB Urinalysis Automated Today Z13.9 - Encounter for screening, unspecified Sickle Cell Scr Today N48.30 - Priapism, unspecified Complete Blood Count Auto Diff Today N48.30 - Priapism, unspecified Medications: New tadalafil (Cialis) [id number] [facility] [id number] Member [id number] 5 mg PO Q OTHER DAY 90 days 45 tabs 0RF priapism Patient Instructions: The patient had an opportunity to ask questions regarding the treatment plan. All questions were answered. Physical exam, labs, and imaging were discussed and reviewed in detail. As well as risks, benefits, and discussion of treatment choices. No major barriers to understanding were identified. The patient expressed understanding and agreement with the above treatment plan. The patient was made aware they should contact our office by phone for worsening of their current condition, the appearance of new symptoms, or with any questions or concerns. Compliance is encouraged with any medications and follow up testing that is ordered. It is a privilege to be allowed the opportunity to participate in? your urological care.? Again, if you have any questions or concerns If you have any questions or concerns please do not hesitate to contact me. The office is [phone]. This note is constructed using voice recognition software. While every effort has been made to ensure accuracy maintenance worker municipal errors may have been included. Yours sincerely, JENNIFER Gamboa Coding Level of Care Code New Pt Level 4 (23355) Diagnoses Priapism N48.30
== END 2024-06-06 11:54 | disposition home or self-care (01) ==
PROVIDERS: Visit Provider Nurse Practitioner Family
DX: Z13.9 Encounter for screening, unspecified (principal); N48.30 Priapism, unspecified
CPT/HCPCS: 99204

== ENCOUNTER → 2024-06-06 10:05 | Outpatient (BNVA) | payer OTHER, SELFPAY | PROVIDERS: Visit Provider Nurse Practitioner Family | DX: N48.30 Priapism, unspecified (principal) | CPT/HCPCS: 81003; 99202 ==

== ENCOUNTER 2024-08-07 14:34 | Outpatient (REF) | payer OTHER, SELFPAY ==
[2024-08-07 15:01] LABS: MANUAL DIFF FLAG NO
[2024-08-07 15:42] LABS: Basophils Absolute Auto 0.1 X10*3/uL (0.0-0.2); Basophils Percent Auto 0.9 % (0-2); Eosinophils Absolute Auto 0.2 X10*3/uL (0.0-0.4); Eosinophils Percent Auto 2.6 % (0-4); Hematocrit 46.1 % (42.0-52.0); Hemoglobin 15.5 g/dl (14.0-18.0); Imm Gran Abs Auto 0.03 X10*3/uL (0.00-0.03); Imm Gran Pct Auto 0.4 % (0.0-0.4); Mean Corpuscular HGB Conc 33.6 g/dl (31.0-36.0); Mean Corpuscular Hemoglobin 29.8 pg (27.0-33.0); Mean Corpuscular Volume 88.7 fL (80.0-98.0); Mean Platelet Volume 11.8 fL (9.4-12.4); Monocytes Absolute Auto 0.7 X10*3/uL (0.1-1.2); Monocytes Percent Auto 8.5 % (2-11); Neutrophils Absolute Auto 3.9 x10*3/uL (2.0-8.3); Neutrophils Percent Auto 49.6 % (45-73); Platelet Count 206 X10*3/uL (160-400); Red Cell Distribution Width 13.2 % (11.0-16.0); White Blood Count 7.8 X10*3/uL (4.8-10.8)
[2024-08-07 16:00] LABS: Sickle Cell Scr NEGATIVE (NEGATIVE)
== END 2024-08-07 14:35 | disposition home or self-care (01) ==
LOC: HO.LAB 14:34
PROVIDERS: Visit Provider Nurse Practitioner Family
DX: N48.30 Priapism, unspecified (principal)
CPT/HCPCS: 36415; 85025; 85660

== ENCOUNTER 2024-08-09 15:20 | Outpatient (AMB) | payer OTHER, SELFPAY ==
--- NOTE | 2024-08-09 15:49 | A.OFFVIS_ITS ---
Intake Visit Reasons: 2m Priaprism follow up(Penile Doppler TNP) Intake Note: Patient is present for Follow Up Priaprism Urology Med: Tadalafil Antibiotic Allergy:None Blood Thinner: None Allergies No Known Allergies [No Known Allergies*] Allergy (Verified 06/06/24 11:18) HPI Comments Details: Vinnie is a pleasant male. He is seen for the following urologic conditions - stuttering priapism Stuttering priapism Prior evaluation with [facility] and wished to [place] [facility] Undergone multiple evaluations for sickle cell anemia and leukemia with Nolberto tology which have all been negative Has recurrent priapism with multiple ER presentations Has difficulty with phenylephrine injections and unable to perform at home Only prior recommendation has been on demand terbutaline Trial finasteride 5 mg daily, ketoconazole induction followed by ketoconazole daily Start ketoconazole 200 mg t.i.d. for 14 days with prednisone 5 mg daily Will then go on daily ketoconazole for six-month Mady Bob MP. Prevention of recurrent ischemic priapism with ketoconazole: evolution of a treatment protocol and patient outcomes. J Sex Med. 2014 Oct;11(1):197-204 [facility] Social History Alcohol intake: current Alcohol type: beer Substance Use Type: Marijuana Review of Systems Const Denies chills and Denies fever(s) Card Reports no additional complaints and Denies syncope Resp Denies cough GI Denies abdominal pain and Denies heartburn Reports as per HPI and Denies change in libido Neuro Denies syncope Psych Denies change in libido Endo Denies change in libido Physical Exam Const General: cooperative, healthy appearing, comfortable and no acute distress Orientation/consciousness: patient oriented x3 HEENT Face and sinus: Yes normal facial exam Mouth: moist mucous membranes Neck Neck: Yes normal visual inspection, Yes full ROM and Yes trachea midline Chest Chest palpation & inspection: normal inspection of the chest Resp Effort & Inspection: normal respiratory effort, able to speak in complete sentences and no respiratory distress GI Inspection: Yes normal to inspection Back/Spine/Pelvis Cervical Spine: normal cervical lordosis Thoracic/Lumbar Spine: thoracic and lumbar spine normal to inspection Skin General skin exam: no rashes or lesions noted Neuro General: patient oriented x3, gait normal, tone normal and moves all extremities Extrem General: Yes normal to inspection and Yes capillary refill normal Assessment & Plan Assessment & Plan (1) Stuttering priapism: Code(s): N48.39 - Other priapism Category: Medical Plan Three-month follow-up Medications: New finasteride 5 mg PO DAILY 90 days 90 tabs 1RF N13.8 - Other obstructive and reflux uropathy, N40.1 - Benign prostatic hyperplasia with lower urinary tract symptoms, N48.39 - Other priapism, R33.9 - Retention of urine, unspecified prednisone 5 mg PO DAILY 14 days 14 tabs 0RF N48.39 - Other priapism ketoconazole Take 1 tab 3x a day for first 14 days then take 1 tab daily 200 mg PO DAILY 90 days 90 tabs 1RF N48.39 - Other priapism Patient Instructions: Imaging studies, laboratory and physical exam results were discussed and reviewed in detail. No major barriers to patient understanding were identified. An opportunity to ask questions regarding the treatment plan was provided. All questions were answered. The patient expressed understanding and agreement with the above treatment plan. The patient is aware they should contact our office by phone for worsening of their current condition or the appearance of new urologic symptoms. Compliance is encouraged with any medications and followup testing that is ordered. It is a privilege to participate in the urologic care of your patient. If you have any questions or concerns regarding treatment for the above conditions, or other urologic issues, please do not hesitate to contact me. The office telephone contact is [phone]. This note is constructed using voice recognition software. While every effort short s been made to ensure accuracy senior engineering technician errors may have been included. Yours sincerely, Dr Kalpesh Mathew MD, [facility] Providers of Expert, Compassionate Care for the Genitourinary System Coding Level of Care Code Est Pt Level 4 (42481) Diagnoses Stuttering priapism N48.39
== END 2024-08-09 16:11 | disposition home or self-care (01) ==
PROVIDERS: Visit Provider Urology
DX: N48.39 Other priapism (principal)
CPT/HCPCS: 99214

== ENCOUNTER → 2024-08-09 15:20 | Outpatient (BNVA) | payer OTHER, SELFPAY | PROVIDERS: Visit Provider Urology | DX: N48.39 Other priapism (principal) | CPT/HCPCS: 99212 ==

== ENCOUNTER 2024-09-06 15:00 | Outpatient (AMB) | payer OTHER, SELFPAY ==
[2024-09-06 15:01] VITALS: BP 148/98; PULSE 99; O2SAT 98; BMI 27.8
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
[2024-09-06 15:53] VITALS: BP 140/88
== END 2024-09-06 15:59 | disposition home or self-care (01) ==
DX: F31.9 Bipolar disorder, unspecified (principal); F41.9 Anxiety disorder, unspecified; N48.39 Other priapism; K76.0 Fatty (change of) liver, not elsewhere classified; E55.9 Vitamin D deficiency, unspecified; K21.9 Gastro-esophageal reflux disease without esophagitis; E78.00 Pure hypercholesterolemia, unspecified; F43.10 Post-traumatic stress disorder, unspecified; G47.33 Obstructive sleep apnea (adult) (pediatric); M79.7 Fibromyalgia; R06.09 Other forms of dyspnea

== ENCOUNTER → 2024-09-06 15:00 | Outpatient (BNVA) | payer OTHER, SELFPAY | DX: F31.9 Bipolar disorder, unspecified (principal); F41.9 Anxiety disorder, unspecified; N48.39 Other priapism; K76.0 Fatty (change of) liver, not elsewhere classified; E55.9 Vitamin D deficiency, unspecified; K21.9 Gastro-esophageal reflux disease without esophagitis; E78.00 Pure hypercholesterolemia, unspecified; F43.10 Post-traumatic stress disorder, unspecified; M79.7 Fibromyalgia; G47.33 Obstructive sleep apnea (adult) (pediatric); R06.09 Other forms of dyspnea | CPT/HCPCS: 96127; 99202 ==

== ENCOUNTER 2024-09-11 08:15 | Outpatient (REF) | payer OTHER, SELFPAY ==
[2024-09-11 08:56] LABS: Estimated Average Glucose 108 mg/dL; Hemoglobin A1C 136.6488 umol/L; Hemoglobin A1c % 5.4 % (<6.0); Total Hemoglobin (HGBA1C) 3859.5673 umol/L
[2024-09-11 09:22] LABS: Cholesterol 239 mg/dL (<200); HDL Cholesterol 56 mg/dL (>40); LDL Cholesterol Calculated 160 mg/dL (<100); Triglycerides 115 mg/dL (<150)
[2024-09-11 09:42] LABS: TSH reflex Free T4 1.91 uIU/mL (0.32-4.0)
[2024-09-11 09:46] LABS: Folate 7.8 ng/mL (> or = 4.0); Vitamin B12 518 pg/mL (200-900)
[2024-09-19 13:39] LABS: Vitamin D 25-OH, D2 <4 ng/mL; Vitamin D 25-OH, D3 27 ng/mL; Vitamin D 25-OH, Total 27 ng/mL (30-100)
== END 2024-09-11 08:16 | disposition home or self-care (01) ==
LOC: HO.LAB 08:15
DX: Z00.00 Encounter for general adult medical examination without abnormal findings (principal); E78.00 Pure hypercholesterolemia, unspecified; K76.0 Fatty (change of) liver, not elsewhere classified
CPT/HCPCS: 36415; 80061; 82306; 82607; 82746; 83036; 84439; 84443

== ENCOUNTER → 2024-09-21 10:29 | Outpatient (REF) | payer OTHER, SELFPAY ==
--- NOTE | 2024-09-21 10:32 | CA_ITS ---
Acquisition Time: 2024-09-21 11:02:56 Total Exercise Time: 00:00:41 Test Indications: dyspnea on exertion Medications: Protocol: CHRISTINE Max HR: 117 BPM 67% of Pred: 174 BPM Max BP: 128/080 mmHG Max Work Load: 1.5 METS Exercise Stress Test with exercise 10 secs of Christine Protocol, achieving 59% MPHR, unable to complete test, pt requested to stop as he stated the speed was too fast due to bad back, without any anginal symptoms, without any arrythmias, with normotensive response to exercise, with nondiagnostic EKG for ischemia. Will recommend PCP for pharmacologic stress test with Lexiscan for further evaluation if needed. Test reviewed with Dr. Garces. Referred By: Lynn Sarkar Overread By: SYDNI MARTINEZ
== END ==
LOC: HO.CARD 10:29
DX: R06.09 Other forms of dyspnea (principal)
CPT/HCPCS: 93017

== ENCOUNTER → 2024-09-21 10:32 | Outpatient (BNV) | payer OTHER, SELFPAY | PROVIDERS: Visit Provider Nurse Practitioner Family | DX: R06.02 Shortness of breath (principal) | CPT/HCPCS: 93016; 93018 ==

== ENCOUNTER 2024-10-19 14:54 | Outpatient (REF) | payer OTHER, SELFPAY ==
[2024-10-19 09:40] VITALS: PULSE 86; O2SAT 99
--- NOTE | 2024-10-19 14:56 | PFT_ITS ---
Indication: Dyspnea Spirometry [FEV1 to FVC 87%; FEV1 96%; FVC 93%. No significant response to bronchodilators noted. Inspiratory flows demonstrating some degree of plateauing in the flow volume loop. However, the patient was having some chest discomfort in the effort was limited because of that.] Lung Volumes [Total lung capacity 90% predicted; expiratory reserve volume 53% predicted] Diffusion Capacity [DLCO 84% predicted] Comparisons [None] Interpretation [No obstructive nor restrictive ventilatory defects identified. Question dynamic extrathoracic obstruction with the limited flows in the inspiratory phase although could be effort related. No response to bronchodilators noted. Normal lung volumes and normal diffusing capacity. Clinical correlation warranted.] MTDD
== END 2024-10-19 14:55 | disposition home or self-care (01) ==
LOC: HO.RESP 14:54
DX: R06.09 Other forms of dyspnea (principal)
CPT/HCPCS: 94010; 94640; 94727; 94729

== ENCOUNTER → 2024-10-19 14:56 | Outpatient (BNV) | payer OTHER, SELFPAY | PROVIDERS: Visit Provider Hospitalist | DX: R06.09 Other forms of dyspnea (principal) | CPT/HCPCS: 94060; 94727; 94729 ==

== ENCOUNTER 2024-10-23 11:27 | Outpatient (AMB) | payer OTHER, SELFPAY ==
--- NOTE | 2024-10-23 11:43 | MHC.PC.OV ---
Vital Signs 10/23/24 11:44 Height 5 ft 6 in Weight 175 lb BMI 28.2 BP 110/80 Blood Pressure Location Lt brachial Position Sitting Pulse 80 Pulse Source Pulse Oximeter Pulse Oximetry (%) 96 Oxygen Delivery Method Room Air Intake Visit Reasons: f/u blood work and dyspnea Travel Registered Nurse Icu Required: No Accompanied by: Self / Same As Patient Allergies No Known Allergies [No Known Allergies*] Allergy (Verified 10/23/24 11:44) Medication List - Last Reconciled 10/23/24 by Lynn Sarkar PA-C acetaminophen (Tylenol Extra Strength) 500 mg PO Q6H PRN acetaminophen 650 mg PO TID PRN buspirone 30 mg PO BID cholecalciferol (vitamin D3) (Vitamin D3) 50 mcg PO DAILY clonazepam 0.5 mg PO BID PRN cyclobenzaprine 10 mg PO TID PRN finasteride 5 mg PO DAILY 90 days fluticasone propionate 50 mcg/actuation 2 sprays intranasal DAILY ketoconazole 200 mg PO DAILY 90 days ketorolac 10 mg PO TID PRN 5 days lidocaine 5% (Lidoderm) 1 patch topical DAILY PRN MDD remove after 12 hours lidocaine 5% topical DAILY PRN loratadine 10 mg PO DAILY lurasidone 20 mg PO DAILY oxycodone-acetaminophen 5-325 mg 1 tab PO QID PRN tadalafil (Cialis) 5 mg PO Q OTHER DAY 90 days terbutaline 5 mg PO DAILY zolpidem 10 mg PO BEDTIME PRN Tobacco use date assessed: 10/23/24 Dental Screening Dental Screen Date: 10/23/24 Did you have a dental visit in the last 12 months?: Yes Did you have a dental problem in the last 6 months where you did not have access to dental care?: No Was dental information given to patient?: Patient has dentist HPI f/u blood work and dyspnea HPI Details 48-year-old male with past medical history of anxiety, fatty liver disease, bipolar disorder, PTSD, hypercholesterolemia, GERD, fibromyalgia, obstructive sleep apnea, vitamin-D deficiency last seen August 2024 coming in for follow up.? In review of the notes patient had pulmonary function testing completed which was negative.?Patient also completed stress test unable to complete test due to inability to walk on treadmill recommending nuclear stress test which was ordered. still having SOB with long periods of walking. [facility] Family History Father Pancreatic cancer Mother Ovarian cancer Maternal Grandfather Stomach cancer Social History Housing: Apartment Alcohol intake: current Alcohol type: beer Patient Tobacco Use Status: Current someday Tobacco user Tobacco use type: Cigar e-Cigarette/Vaping Use: Never Used Substance Use Type: Marijuana service: No Current occupational status: unemployed Cognitive needs: No Hearing needs: No Vision needs: No Questionnaire PHQ-9 Over the last 2 weeks, how often have you been bothered by any of the following problems? 1. Little interest or pleasure in doing things: not at all 2. Feeling down, depressed, or hopeless: nearly every day 3. Trouble falling or staying asleep, or sleeping too much: nearly every day 4. Feeling tired or having little energy: nearly every day 5. Poor appetite or overeating: nearly every day 6. Feeling bad about yourself - or that you are a failure or have let yourself or your family down: nearly every day 7. Trouble concentrating on things, such as reading the newspaper or watching television: nearly every day 8. Moving or speaking so slowly that other people could have noticed. Or the opposite - being so fidgety or restless that you have been moving around a lot more than usual: nearly every day 9. Thoughts that you would be better off or of hurting yourself in some way: nearly every day Total score: 24 Depression Screening Interpretation: Positive (psychiatrist) Depression Screening Follow-up: Existing condition and In treatment Depression Screening Done: Yes 41345 - PHQ-9 Billing: Yes Source: Developed by Drs. Dallin Bustamante, Alyssia Blanco, Martin Rodrigez and colleagues, with an educational jeremiah from [employer]. Thrive Questionnaire Date Thrive assessed: 10/23/24 I am a: Patient What is your living situation today?: I have a place to live, but I am worried about losing it in the future Within the past 12 months, did the food you bought not last and you didn't have the money to get more?: Often true Within the past 12 months, did you worry whether your food would run out before you got money to buy more?: Often true Do you have trouble paying for medicines?: Yes Do you have trouble getting transportation to medical appointments?: No Do you have trouble paying your heating and electricity bill?: No Do you have trouble taking care of your child, family member or friend?: Yes Do you have trouble with day-to-day activities such as bathing, preparing meals, shopping, managing finances, etc.?: Yes Are you currently unemployed and looking for a job?: No Are you interested in more education?: No Please select the resources that you would like help with: None Currently or been in a relationship where the following occur: No concerns reported THRIVE Score: 3 AUDIT C Alcohol Use Questionnaire (AUDIT-C) 1. How often do you have a drink containing alcohol?: 4 or more times a week 2. How many drinks containing alcohol do you have on a typical day when you are drinking?: 5 or 6 3. How often do you have six or more drinks on one occasion?: Daily or almost daily Total Score: 10 LUZ MARIA-7 AMB Questionnaire LU ZMARIA-7 Date LUZ MARIA - 7 assessed: 10/23/24 Feeling nervous, anxious, or on edge: 3 = Nearly every day Not being able to stop or control worryin = Nearly every day Worrying too much about different things: 3 = Nearly every day Trouble relaxin = Nearly every day Being so restless that it is hard to sit still: 3 = Nearly every day Becoming easily annoyed or irritable: 3 = Nearly every day Feeling afraid as if something awful might happen: 3 = Nearly every day Total LUZ MARIA-7 score (0-4 normal; 5-9 mild; 10-14 moderate; 15-21 severe): 21 Source: Developed by Drs. Dallin Bustamante, Alyssia Blanco, Martin Rodrigez and colleagues, with an educational jeremiah from [employer]. LUZ MARIA-7 Assessment Billing LUZ MARIA-7 Assessment Tool: LUZ MARIA-7 Assessment 73189 Review of Systems Const Denies body aches, Denies chills, Denies fever(s), Denies headache(s) and Denies poor appetite Eyes Reports no additional complaints ENT Denies dizziness and Denies headache(s) Card Denies chest pain, Denies lightheadedness, Denies dyspnea and Reports dyspnea on exertion Resp Denies cough, Denies dyspnea and Reports dyspnea on exertion GI Denies abdominal pain, Reports dyspepsia, Reports heartburn and Denies nausea Reports no additional complaints Musc Reports no additional complaints and Denies abnormal gait Skin/Breast Reports system reviewed and no additional complaints, except as documented Neuro Denies abnormal gait, Denies dizziness and Denies headache(s) Psych Reports no additional complaints Physical exam (Primary Care) Vital Signs: Oxygen Delivery Method Room Air 10/23/24 11:44 Tobacco/Smoking Status: Tobacco use Status Tobacco use date assessed 09/06/24 09/06/24 15:02 Patient Tobacco Use Status Current someday Tobacco 09/06/24 15:26 Tobacco use type Cigar 09/06/24 15:26 Depression Screening Interpretation: Positive (psychiatrist) Depression Screening Follow-up: Existing condition and In treatment Thrive Assessment: Date of Thrive Assessment Date Thrive assessed 10/23/24 10/23/24 11:27 Currently or been in a relationship where the following occur: No concerns reported Const General: cooperative, healthy appearing, comfortable and no acute distress Orientation/consciousness: patient oriented x3 HENMT Head: Yes normocephalic Ears: hearing grossly normal bilaterally General nose exam: Normal external nose present Eyes General: appearance normal, both eyes and all related structures Conjunctivae: conjunctivae normal Neck Neck: Yes full ROM and Yes no lymphadenopathy Resp Effort & Inspection: normal respiratory effort Auscultation: clear to auscultation bilaterally, no crackles, no rales, no rhonchi and no wheezes Cardio Rate: regular rate Rhythm: regular rhythm Skin General skin exam: no rashes or lesions noted Neuro General: patient oriented x3 Gait exam (Neuro): Normal gait present Extrem General: Yes normal to inspection, Yes full ROM and No edema Psych Affect: normal affect Attitude: cooperative Insight: Good insight present (Psych) Judgement: Good judgement present (Psych) Coding Level of Care Code Est Pt Level 4 (51030) Diagnoses Dyspnea on exertion R06.09 Fibromyalgia M79.7 Hypercholesterolemia E78.00 Elevated LFTs R79.89 GERD (gastroesophageal reflux disease) K21.9 Additional Codes LUZ MARIA-7 Assessment Billing - LUZ MARIA-7 Assessment Tool: LUZ MARIA-7 Assessment 18458 ([id number]) PHQ-9 - 99876 - PHQ-9 Billing: Yes ([id number]) Assessment & Plan Assessment & Plan (1) Dyspnea on exertion: Code(s): R06.09 - Other forms of dyspnea Category: Medical Plan: PFTs were negative patient could not tolerate exercise stress test and nuclear stress test was ordered as scheduled for January (2) Fibromyalgia: Code(s): M79.7 - Fibromyalgia Category: Medical Plan: Patient complaining of chronic pain does see pain management through [facility]. Ordered for cane for pain with prolonged walking. (3) Hypercholesterolemia: Code(s): E78.00 - Pure hypercholesterolemia, unspecified Category: Medical Plan: Avoid foods that are high in cholesterol such as red meat, fried foods, eggs and baked goods. Triglyceride goal of less than 150 and LDL goal of less than 130. Not currently on medical management ASCVD risk calculated 2.0% for the next 10 years recommending dietary versus medical management. Discussed with patient at length risk of elevated cholesterol plan to work on dietary and lifestyle modification of the next 3 months and repeat cholesterol at that time. (4) Elevated LFTs: Code(s): R79.89 - Other specified abnormal findings of blood chemistry Category: Medical Plan: Ordered for repeat LFTs before next visit. Patient previously diagnosed with fatty liver disease through ultrasound at last PCP. Healthy diet and regular exercise is encouraged. (5) GERD (gastroesophageal reflux disease): Code(s): K21.9 - Gastro-esophageal reflux disease without esophagitis Category: Medical Plan: Avoid trigger foods such as citrus, tomato products, soda, caffeine, spicy foods and other foods that may be irritating to your stomach. Avoid laying flat 3-4 hours after eating and elevate the head of the bed 30 degrees to prevent acid from moving into the esophagus. Restarted on omeprazole Plan This note was constructed using voice recognition software. While every effort has been made to ensure accuracy and quality controller, still areas may have been included sometimes these areas may affect the content or meeting of the given symptoms. Total time spent caring for the patient today was 30 minutes. This includes time spent before the visit reviewing the chart, time spent during the visit, and time spent after the visit and documentation. Orders: Orders Liver Panel 3 Months R79.89 - Other specified abnormal findings of blood chemistry Lipid Panel 3 Months E78.00 - Pure hypercholesterolemia, unspecified Medications: New [quad cane] As directed 1 ea 0RF M79.7 - Fibromyalgia, R06.09 - Other forms of dyspnea cholecalciferol (vitamin D3) (Vitamin D3) 50 mcg PO DAILY 90 tabs 2RF omeprazole 20 mg PO DAILY 90 caps 2RF
[2024-10-23 11:44] VITALS: BP 110/80; PULSE 80; O2SAT 96; BMI 28.2
== END 2024-10-23 12:28 | disposition home or self-care (01) ==
DX: R06.09 Other forms of dyspnea (principal); M79.7 Fibromyalgia; E78.00 Pure hypercholesterolemia, unspecified; R79.89 Other specified abnormal findings of blood chemistry; K21.9 Gastro-esophageal reflux disease without esophagitis

== ENCOUNTER → 2024-10-23 11:27 | Outpatient (BNVA) | payer OTHER, SELFPAY | DX: F41.9 Anxiety disorder, unspecified (principal); F31.9 Bipolar disorder, unspecified; F43.10 Post-traumatic stress disorder, unspecified; E78.00 Pure hypercholesterolemia, unspecified; K21.9 Gastro-esophageal reflux disease without esophagitis; M79.7 Fibromyalgia; G47.33 Obstructive sleep apnea (adult) (pediatric); R06.09 Other forms of dyspnea | CPT/HCPCS: 96127; 99212 ==

== ENCOUNTER 2024-11-14 15:36 | Outpatient (AMB) | payer OTHER, SELFPAY ==
--- NOTE | 2024-11-14 15:38 | MHC.OFFVIS ---
Intake Visit Reasons: 3M Med Review Intake Note: Patient is present for 3M MED REVIEW Urology Medication:NONE Antibiotic Allergy:NONE Blood Thinner:NONE Hand Cutter Required: No Allergies No Known Allergies [No Known Allergies*] Allergy (Verified 11/14/24 15:40) HPI Comments Details: Vinnie is a pleasant male. He is seen for the following urologic conditions - stuttering priapism Three-month follow-up from ketoconazole trial Minimal benefit Discussed GnRH Plan dosage Stuttering priapism Prior evaluation with [facility] and [facility] Undergone multiple evaluations for sickle cell anemia and leukemia with Hematology which have all been negative Has recurrent priapism with multiple ER presentations Has difficulty with phenylephrine injections and unable to perform at home Only prior recommendation has been on demand terbutaline Trial finasteride 5 mg daily, ketoconazole induction followed by ketoconazole daily Start ketoconazole 200 mg t.i.d. for 14 days with prednisone 5 mg daily Will then go on daily ketoconazole for six-month Cialis every other day 5 mg Lisbeth FRANCO, Mady TOLLIVER. Prevention of recurrent ischemic priapism with ketoconazole: evolution of a treatment protocol and patient outcomes. J Sex Med. 2014 Oct;11(1):197-204 PFSH Family History Father Pancreatic cancer Mother Ovarian cancer Maternal Grandfather Stomach cancer Social History Housing: Apartment Alcohol intake: current Alcohol type: beer Patient Tobacco Use Status: Current someday Tobacco user Tobacco use type: Cigar e-Cigarette/Vaping Use: Never Used Substance Use Type: Marijuana service: No Current occupational status: unemployed Cognitive needs: No Hearing needs: No Vision needs: No Review of Systems Const Denies chills and Denies fever(s) Card Reports no additional complaints and Denies syncope Resp Denies cough GI Denies abdominal pain and Denies heartburn Reports as per HPI and Denies change in libido Neuro Denies syncope Psych Denies change in libido Endo Denies change in libido Physical Exam Const General: cooperative, healthy appearing, comfortable and no acute distress Orientation/consciousness: patient oriented x3 HEENT Face and sinus: Yes normal facial exam Mouth: moist mucous membranes Neck Neck: Yes normal visual inspection, Yes full ROM and Yes trachea midline Chest Chest palpation & inspection: normal inspection of the chest Resp Effort & Inspection: normal respiratory effort, able to speak in complete sentences and no respiratory distress GI Inspection: Yes normal to inspection Back/Spine/Pelvis Cervical Spine: normal cervical lordosis Thoracic/Lumbar Spine: thoracic and lumbar spine normal to inspection Skin General skin exam: no rashes or lesions noted Neuro General: patient oriented x3, gait normal, tone normal and moves all extremities Extrem General: Yes normal to inspection and Yes capillary refill normal Assessment & Plan Assessment & Plan (1) Stuttering priapism: Comment: Failed finasteride, ketoconazole Code(s): N48.39 - Other priapism Category: Medical Plan Using GnRH (gonadotropin-releasing hormone) for stuttering priapism, - medical literature and expert opinion support its use as a potential treatment option for recurrent priapism, often in conjunction with other therapies, due to its ability to lower testosterone levels and potentially reduce episodes of priapism;?however, careful monitoring is necessary due to potential side effects like hypogonadism and the need to consider individual patient factors before initiating treatment Ze HR, Alanna O, Robin CRAWLEY. Medical management of ischemic stuttering priapism: a contemporary review of the literature. J Androl. 2012 Ricky;14(1):156-63. doi: 10.1038/ely.2011.114. Epub 2010Aug 24. PMID: 64240986; PMCID: [id number] Patient Instructions: This note is constructed using voice recognition software. While every effort has been made to ensure accuracy floor layer tile errors may have been included. Imaging studies, laboratory and physical exam results were discussed and reviewed in detail. No major barriers to patient understanding were identified. An opportunity to ask questions regarding the treatment plan was provided. All questions were answered. The patient expressed understanding and agreement with the above treatment plan. The patient is aware they should contact our office by phone for worsening of their current condition or the appearance of new urologic symptoms. Compliance is encouraged with any medications and followup testing that is ordered. It is a privilege to participate in the urologic care of your patient. If you have any questions or concerns regarding treatment for the above conditions, or other urologic issues, please do not hesitate to contact me. The office telephone contact is [phone]. Sincerely, Dr Kalpesh Mathew MD, [facility] - Urology Compassionate Specialist Care for the Genitourinary System Coding Level of Care Code Est Pt Level 4 (12637) Diagnoses Stuttering priapism N48.39
--- OUTSIDE RECORDS SUMMARY | 2024-11-14 16:26 | XMS_ITS | Clinical Summary ---
Author Organization [facility] Address [address] [place] [address] Care Team Providers Care Endocrinology Physician Name Role Phone Snow Velasquez MD Primary Care Provider Allergies No known active allergies Medications Medication Sig Dispensed Refills Start Date End Date Status busPIRone (BUSPAR) 30 MG tablet Take 30 mg by mouth 3 (three) times a day. 0 11/19/2021 Active [employer] D3 50 MCG (1999 UT) CAPS Take 1 capsule by mouth daily. 0 12/20/2021 Active clonazePAM (KlonoPIN) 0.5 MG tablet TAKE 1 TABLET BY MOUTH TWICE A DAY NEEDED 0 12/05/2021 Active fluticasone (FLONASE) 50 MCG/ACT nasal spray USE 1 SPRAY BY NASAL ROUTE DAILY 0 11/22/2021 Active gabapentin (NEURONTIN) 600 MG tablet Take 600 mg by mouth 4 (four) times a day. 0 11/20/2021 Active loratadine (CLARITIN) 10 MG tablet Take 10 mg by mouth daily. 0 10/15/2021 Active zolpidem (AMBIEN) 10 MG tablet TAKE 1 TABLET BY MOUTH EVERY DAY AT BEDTIME NEEDED 0 11/28/2021 Active methocarbamol (ROBAXIN) 750 MG tablet TAKE 1 TABLET BY MOUTH 3 TIMES DAILY NEEDED (MUSCLE SPASM). 0 11/20/2021 Active Acetaminophen (Tylenol) 325 MG CAPS Take 650 mg by mouth. 0 01/09/2020 Active lidocaine (LIDODERM) 5 % Place 1 patch onto the skin. 0 05/14/2021 Active omeprazole (PriLOSEC) 20 MG capsule Take 20 mg by mouth. 0 08/14/2020 Active psyllium (METAMUCIL) 0.52 g capsule Take 1 capsule by mouth daily. 0 03/07/2020 Active triamcinolone acetonide (Kenalog) 10 MG/ML injection Inject 10 mg into the articular space. 0 06/13/2021 Active Cholecalciferol 50 MCG (1999 UT) TABS Take 1 tablet by mouth daily. 0 10/21/2021 Active Latuda 20 MG TABS tablet Take 20 mg by mouth daily. 0 01/05/2022 Active naproxen (NAPROSYN) 500 MG tablet Take 1 tablet by mouth 2 (two) times a day with meals. 0 09/30/2021 Active traZODone (DESYREL) 100 MG tablet at bedtime. 0 05/14/2020 Active Active Problems Problem Noted Date Diagnosed Date Thoracic outlet syndrome 03/18/2021 COVID-19 virus infection 08/06/2020 Fibromyalgia 11/06/2019 Vitamin D deficiency 09/28/2019 Antral gastritis 01/26/2019 Overview: Bx showed a single non-necrotizing microgranuloma History of incarceration 01/26/2019 Overview: For 13 yrs; released 10/09/2016. Heartburn 12/14/2018 Hypercholesteremia 08/04/2017 Myalgia 05/24/2017 Neck pain 05/24/2017 Right shoulder tendinitis 05/24/2017 Anxiety 03/08/2017 PTSD (post-traumatic stress disorder) 03/08/2017 Recurrent major depressive disorder 03/08/2017 Family History Medical History Relation Name Comments Cancer Maternal Grandfather Cancer Mother Relation Name Status Comments Maternal Grandfather Mother Social History Tobacco Use Types Packs/Day Years Used Date Smoking Tobacco: Never Smokeless Tobacco: Never Alcohol Use Standard Drinks/Week Comments Not Currently 0 (1 standard drink = 0.6 oz pur e alcohol) Sex and Gender Information Value Date Recorded Sex Assigned at Not on file Gender Identity Not on file Sexual Orientation Not on file Job Start Date Occupation Industry Not on file Not on file Not on file Last Filed Vital Signs Vital Sign Reading Time Taken Comments Blood Pressure 124/85 02/27/2022 8:58 AM EDT Pulse 85 02/27/2022 8:58 AM EDT Temperature 36.7 ??C (98.1 ??F) 02/27/2022 8:58 AM ED T Respiratory Rate 16 02/27/2022 8:58 AM EDT Oxygen Saturation 98% 02/27/2022 8:58 AM EDT Inhaled Oxygen Concentration - - Weight 78 kg (172 lb) 02/27/2022 8:58 AM EDT Height 167.6 cm (5' 6 ) 02/27/2022 8:58 AM EDT Body Mass Index 27.76 02/27/2022 8:58 AM EDT Plan of Treatment Health Maintenance Due Date Last Done Comments Hepatitis B Vaccines (1 of 3 - 3-dose series) 1977 Hepatitis C Screening 1977 Depression Screening 1989 BMI Counseling 1995 Preventative Health Evaluation 1995 Colon Cancer Screening (Colonoscopy) 2022 COVID-19 Vaccine (2023-2 5 season) 2024 03/08/2021, 02/18/2021 Influenza Vaccine (#1) 2024 DTap / Tdap / Td (2 - Td or Tdap) 03/01/2026 03/01/2016 Pneumococcal Vaccine Aged Out No long er eligible based on patient's age to complete this topic RSV Ped < 20 months Aged Out No longe r eligible based on patient's age to complete this topic Care Teams Endocrinology Physician Relationship Specialty Start Date End Date Snow Velasquez MD PCP - General Internal Medicine 11/24/23
--- OUTSIDE RECORDS SUMMARY | 2024-11-14 16:26 | XMS_ITS | Encounter Summary ---
Author Organization [facility] Address [address] [place] [address] Care Team Providers Care Hospital Superintendent Name Role Phone Snow Velasquez MD Primary Care Provider [phone] Reason for Visit * Reason Onset Date Comments E-prescribe Rx Request 05/07/2019 psyllium (METAMUCIL) 0.52 G capsule [ Encounter Details Date Type Department Care Team Description 05/07/2019 Refill Gastroenterology - [place] [address] [facility] [address] [place] [id number] Ritesh Escamilla PA-C E-prescribe Rx Request (psyllium (METAMUCIL) 0.52 G capsule [) Social History Tobacco Use Types Packs/Day Years Used Date Smoking Tobacco: Former Cigarettes Q uit: 2003 Smokeless Tobacco: Never Comments:quit 2003, unsure o f exact date Alcohol Use Standard Drinks/Week Comments Yes 0 (1 standard drink = 0.6 oz pur e alcohol) social Sex Assigned at Date Recorded Male 06/14/2020 9:38 PM E DT Job Start Date Occupation Industry Not on file Not on file Not on file documented as of this encounter Miscellaneous Notes * Telephone Encounter - Viviane Oliva M.A. - 05/08/2019 7:52 AM EDT Seen .map * Telephone Encounter - Viviane Oliva M.A. - 05/08/2019 7:52 AM EDTFrom: Vinnie Weeks To: Ritesh Escamilla PA-C Sent: 05/07/2019 10:31 AM EDT Subject: Medication Renewal Request Original authorizing provider: Ritesh Escamilla PA-C Vinnie Weeks would like a refill of the following medications: psyllium (METAMUCIL) 0.52 G capsule [Ritesh Escamilla PA-C] Preferred pharmacy: [address] Comment: Medication renewals requested in this message routed to other providers: omeprazole (PRILOSEC) 20 MG capsule [Eduard Ramirez MD] cyclobenzaprine (FLEXERIL) 5 MG tablet [James Sharma MD] documented in this encounter Plan of Treatment Not on file documented as of this encounter Visit Diagnoses Not on filedocumented in this encounter Care Teams Hospital Superintendent Relationship Specialty Start Date End Date Snow Velasquez MD [address] [place] [id number] PCP - General Internal Medicine 03/10/17 documented as of this encounter
--- OUTSIDE RECORDS SUMMARY | 2024-11-14 16:26 | XMS_ITS | Encounter Summary ---
Author Organization [facility] Address [address] [place] [address] Care Team Providers Care Contract Administrator Name Role Phone Snow Velasquez MD Primary Care Provider [phone] Encounter Details Date Type Department Care Team Description 12/24/2022 Blower Feeder Dyed Raw Stock Report Medical Records [address] [place] [id number] Valdemar Reynoso PA-C Social History Tobacco Use Types Packs/Day Years [...] on file documented as of this encounter Plan of Treatment Not on file documented as of this encounter Visit Diagnoses Not on filedocumented in this encounter Care Teams Contract Administrator Relationship Specialty Start Date End Date Snow Velasquez MD [address] [place] [address] [phone] PCP - General Internal Medicine 03/10/17 documented as of this encounter
--- OUTSIDE RECORDS SUMMARY | 2024-11-14 16:26 | XMS_ITS | Encounter Summary ---
Author Organization [facility] Address [address] [place] [address] Care Team Providers Care Senior Client Advisor Name Role Phone Snow Velasquez MD Primary Care Provider [phone] Encounter Details Date Type Department Care Team Description 01/13/2019 Orders Only Medical Records [address] [place] [address] Lillian Cruz MD [address] [place] [address] Social History Tobacco Use Types Packs/Day Years Used Date Smoking Tobacco: Former Smokeless Tobacco: Never Comments:quit 2003, unsure o [...] on file documented as of this encounter Procedures Procedure Name Priority Date/Time Associated Diagnosis Comments OUTSIDE PATHOLOGY Routine 01/10/2019 documented in this encounter Results * OUTSIDE PATHOLOGY (01/10/2019) Lillian Cruz MD OUTSIDE LAB documented in this encounter Visit Diagnoses Not on filedocumented in this encounter Care Teams Senior Client Advisor Relationship Specialty Start Date End Date Snow Velasquez MD [address] [place] [address] PCP - General Internal Medicine 03/10/17 documented as of this encounter
--- OUTSIDE RECORDS SUMMARY | 2024-11-14 16:26 | XMS_ITS | Encounter Summary ---
Author Organization [facility] Address [address] [place] [address] Care Team Providers Care Endoscopic Technician Name Role Phone Villa Renee MD Primary Care Provider Miroslava Snow Monahan MD Primary Care Provider [phone] Encounter Details Date Type Department Care Team Description 1975 Underwriter Solicitation Director Report Medical Records [address] [place] [address] Valdemar Reynoso PA-C Social History Tobacco Use Types Packs/Day Years Used Date Smoking Tobacco: Never Assessed Sex Assigned at Date Recorded Male 06/14/2020 9:38 PM E DT Job Start Date Occupation Industry Not on file Not on file Not on file documented as of this encounter Plan of Treatment Not on file documented as of this encounter Visit Diagnoses Not on filedocumented in this encounter Care Teams Endoscopic Technician Relationship Specialty Start Date End Date Villa Renee MD PCP - General Internal Medicine 03/04/17 7 Snow Velasquez MD [address] [place] [address] [phone] PCP - General Internal Medicine 03/10/17 documented as of this encounter
--- OUTSIDE RECORDS SUMMARY | 2024-11-14 16:26 | XMS_ITS | Encounter Summary ---
Author Organization [employer] [facility] Address [address] [place] [address] Care Team Providers Care Aegis Operations Specialist Name Role Phone Snow Velasquez MD Primary Care Provider [phone] Encounter Details Date Type Department Care Team Description 03/12/2017 Release of Information Medical Records [address] [place] [address] Abstract, Provider Social History Tobacco Use Types Packs/Day Years Used Date Smoking Tobacco: Former Comments:quit 2003, unsure o f exact date Sex Assigned at Date Recorded Male 06/14/2020 9:38 PM E DT Job Start Date Occupation Industry Not on file Not on file Not on file documented as of this encounter Plan of Treatment Not on file documented as of this encounter Visit Diagnoses Not on filedocumented in this encounter Care Teams Aegis Operations Specialist Relationship Specialty Start Date End Date Snow Velasquez MD [address] [place] [address] [id number] PCP - General Internal Medicine 03/10/17 documented as of this encounter
--- OUTSIDE RECORDS SUMMARY | 2024-11-14 16:26 | XMS_ITS | Encounter Summary ---
Author Organization [facility] Address [address] [place] [address] Care Team Providers Care Planimeter Operator Name Role Phone Snow Velasquez MD Primary Care Provider [phone] Encounter Details Date Type Department Care Team Description 11/07/2019 Refill Physiatry - [place] [address] [place] [address] [phone] Valdemar Reynoso PA-C Social History Tobacco Use Types Packs/Day Years Used Date Smoking Tobacco: Former Cigarettes Q uit: 2004 Smokeless Tobacco: Never Comments:quit 2003, unsure o [...] on filedocumented in this encounter Care Teams Planimeter Operator Relationship Specialty Start Date End Date Snow Velasquez MD [address] [place] [address] PCP - General Internal Medicine 03/10/17 documented as of this encounter
--- OUTSIDE RECORDS SUMMARY | 2024-11-14 16:26 | XMS_ITS | Encounter Summary ---
Author Organization [facility] Address [address] [place] [address] Care Team Providers Care Retreader Name Role Phone Snow Velasquez MD Primary Care Provider [phone] Reason for Visit * Reason Onset Date Comments medication problems 03/23/2023 Encounter Details Date Type Department Care Team Description 03/23/2023 Telephone Adult Medicine [address] [phone] Snow Velasquez MD [address] [place] [address] [phone] medication problems Social History Tobacco Use Types Packs/Day Years [...] encounter Miscellaneous Notes * Telephone Encounter - Radha Sheth M.A. - 03/23/2023 11:06 AM EDT Last office visit 02/02/23 Next office visit 03/26/23 Needs to be for 90 day supply * Telephone Encounter - Gadiel De La Cruz - 03/23/2023 10:52 AM EDT What is the name of the medication patient is having a problem with?: loratadine (CLARITIN) 10 MG tablet What is the problem?: please send a 90 day supply per insurance Is the patient calling about the problem? NO If the patient is not the caller who is? Faxed from [facility] Is this a NEW medication?: How long has the patient been taking this medication? Who prescribed this medication for the patient? Anil Dia Who is patients PCP?: Snow Velasquez Payor: [facility] [employer] [facility] FFS / Plan: [facility] [employer] / Product Type: MEDICAID RISK documented in this encounter Plan of Treatment Not on file documented as of this encounter Visit Diagnoses Not on filedocumented in this encounter Care Teams Retreader Relationship Specialty Start Date End Date Snow Velasquez MD [address] [place] [address] PCP - General Internal Medicine 03/10/17 documented as of this encounter
--- OUTSIDE RECORDS SUMMARY | 2024-11-14 16:26 | XMS_ITS | Encounter Summary ---
Author Organization [facility] [facility] Address [address] [place] [address] Care Team Providers Care Leak Hunter Name Role Phone Snow Velasquez MD Primary Care Provider [phone] Reason for Visit * Reason Onset Date Comments refill request 03/06/2020 psyllium (RA FIB ER THERAPY) 0.52 g capsule Encounter Details Date Type Department Care Team Description 03/06/2020 Refill Gastroenterology - [address] [place] [phone] Ritesh Escamilla PA-C refill request (psyllium (RA FIBER THERAPY) 0.52 g capsule) Social History Tobacco Use Types Packs/Day Years [...] on filedocumented in this encounter Care Teams Leak Hunter Relationship Specialty Start Date End Date Snow Velasquez MD [address] [place] [address] PCP - General Internal Medicine 03/10/17 documented as of this encounter
--- OUTSIDE RECORDS SUMMARY | 2024-11-14 16:26 | XMS_ITS | Encounter Summary ---
Author Organization [facility] Address [address] [place] [address] Care Team Providers Care Commercial Lines Sales Executive Name Role Phone Snow Velasquez MD Primary Care Provider [phone] Encounter Details Date Type Department Care Team Description 07/29/2023 Automobile Rental Clerk Report Medical Records [address] [place] [address] Alisa Zepeda PA-C Social History Tobacco Use Types Packs/Day [...] file Not on file Not on file COVID-19 Exposure Response Date Recorded In the last 10 days, have yo u been in contact with someone who was confirmed or suspected to have Coronavirus/COVID-19? No / Unsure 07/08/2023 12:54 PM EDT documented as of this encounter Plan of Treatment Not on file documented as of this encounter Visit Diagnoses Not on filedocumented in this encounter Care Teams Commercial Lines Sales Executive Relationship Specialty Start Date End Date Snow Velasquez MD [address] [place] [address] PCP - General Internal Medicine 03/10/17 documented as of this encounter
--- OUTSIDE RECORDS SUMMARY | 2024-11-14 16:26 | XMS_ITS | Encounter Summary ---
Author Organization [employer] [facility] Address [address] [place] [address] Care Team Providers Care Soil Sampler Name Role Phone Snow Velaqsuez MD Primary Care Provider [phone] Encounter Details Date Type Department Care Team Description 09/13/2023 Retail Route Supervisor Report Medical Records [address] [place] [address] Valdemar Reynoso PA-C Social History Tobacco Use [...] suspected to have Coronavirus/COVID-19? No / Unsure 08/30/2023 2:33 PM EST documented as of this encounter Plan of Treatment Not on file documented as of this encounter Visit Diagnoses Not on filedocumented in this encounter Care Teams Soil Sampler Relationship Specialty Start Date End Date Snow Velasquez MD [address] [place] [address] PCP - General Internal Medicine 03/10/17 documented as of this encounter
--- OUTSIDE RECORDS SUMMARY | 2024-11-14 16:26 | XMS_ITS | Encounter Summary ---
Author Organization [facility] [facility] Address [address] [place] [address] Care Team Providers Care Mercury Purifier Name Role Phone Snow Velasquez MD Primary Care Provider [phone] Encounter Details Date Type Department Care Team Description 11/09/2019 [facility] Medical Records [address] [place] [address] Abstract, Provider Social History Tobacco Use Types [...] on filedocumented in this encounter Care Teams Mercury Purifier Relationship Specialty Start Date End Date Snow Velasquez MD [address] [place] [address] [phone] PCP - General Internal Medicine 03/10/17 documented as of this encounter
--- OUTSIDE RECORDS SUMMARY | 2024-11-14 16:26 | XMS_ITS | Encounter Summary ---
Author Organization [employer] [facility] Address [address] [place] [address] Care Team Providers Care Virtual Office Assistant Name Role Phone Snow Velasquez MD Primary Care Provider [phone] Encounter Details Date Type Department Care Team Description 12/29/2023 Farm Management Professor Report Medical Records [address] [place] [address] Valdemar Reynoso PA-C Social History Tobacco Use [...] on filedocumented in this encounter Care Teams Virtual Office Assistant Relationship Specialty Start Date End Date Snow Velasquez MD [address] [place] [address] [phone] PCP - General Internal Medicine 03/10/17 documented as of this encounter
--- OUTSIDE RECORDS SUMMARY | 2024-11-14 16:26 | XMS_ITS | Encounter Summary ---
Author Organization [employer] [facility] Address [address] [place] [address] Care Team Providers Care Gas Torch Solderer Name Role Phone Snow Velasquez MD Primary Care Provider [phone] Encounter Details Date Type Department Care Team Description 08/03/2022 Gymnastics Coach Report Medical Records [address] [place] [address] Shekhar Haddad MD Social History Tobacco Use Types Packs/Day Years [...] suspected to have Coronavirus/COVID-19? No / Unsure 07/20/2022 1:16 PM EDT documented as of this encounter Plan of Treatment Not on file documented as of this encounter Visit Diagnoses Not on filedocumented in this encounter Care Teams Gas Torch Solderer Relationship Specialty Start Date End Date Snow Velasquez MD [address] [place] [address] PCP - General Internal Medicine 03/10/17 documented as of this encounter
--- OUTSIDE RECORDS SUMMARY | 2024-11-14 16:26 | XMS_ITS | Encounter Summary ---
Author Organization [employer] [facility] Address [address] [place] [address] Care Team Providers Care Director Digital Sales Name Role Phone Snow Velasquez MD Primary Care Provider [phone] Encounter Details Date Type Department Care Team Description 03/29/2020 [facility] Medical Records [address] [place] [address] Abstract, Provider Social History Tobacco Use Types [...] on filedocumented in this encounter Care Teams Director Digital Sales Relationship Specialty Start Date End Date Snow Velasquez MD [address] [place] [address] [phone] PCP - General Internal Medicine 03/10/17 documented as of this encounter
--- OUTSIDE RECORDS SUMMARY | 2024-11-14 16:26 | XMS_ITS | Encounter Summary ---
Author Organization [employer] [facility] Address [address] [place] [address] Care Team Providers Care Take Away Worker Name Role Phone Snow Velasquez MD Primary Care Provider [phone] Encounter Details Date Type Department Care Team Description 12/15/2023 Manager Spa Report Medical Records [address] [place] [address] Valdemar Reynoso PA-C Social History Tobacco Use [...] on filedocumented in this encounter Care Teams Take Away Worker Relationship Specialty Start Date End Date Snow Velasquez MD [address] [place] [address] [phone] PCP - General Internal Medicine 03/10/17 documented as of this encounter
--- OUTSIDE RECORDS SUMMARY | 2024-11-14 16:26 | XMS_ITS | Encounter Summary ---
Author Organization [facility] Address [address] [place] [address] Care Team Providers Care Sales Account Manager Name Role Phone Snow Velasquez MD Primary Care Provider [phone] Encounter Details Date Type Department Care Team Description 03/22/2023 Upholstery Mechanic Report Medical Records [address] [place] [address] [facility] Urology [address] [place] [address] [phone] Social History Tobacco Use Types Packs/Day Years [...] on filedocumented in this encounter Care Teams Sales Account Manager Relationship Specialty Start Date End Date Snow Velasquez MD [address] [place], [place] [phone] PCP - General Internal Medicine 03/10/17 documented as of this encounter
--- OUTSIDE RECORDS SUMMARY | 2024-11-14 16:26 | XMS_ITS | Encounter Summary ---
Author Organization [employer] [facility] Address [address] [place] [address] Care Team Providers Care Rail Car Repairman Name Role Phone Snow Velasquez MD Primary Care Provider [phone] Reason for Visit * Reason Comments E-prescribe Rx Request Encounter Details Date Type Department Care Team Description 08/04/2019 Refill Gastroenterology - [place] [address] [facility] [address] [place] [address] Eduard Ramirez MD E-prescribe Rx Request Social History Tobacco Use Types Packs/Day Years [...] on filedocumented in this encounter Care Teams Rail Car Repairman Relationship Specialty Start Date End Date Snow Velasquez MD [address] [place] [address] PCP - General Internal Medicine 03/10/17 documented as of this encounter
--- OUTSIDE RECORDS SUMMARY | 2024-11-14 16:26 | XMS_ITS | Encounter Summary ---
Author Organization [employer] [facility] Address [address] [place] [address] Care Team Providers Care Manager Architecture Name Role Phone Snow Velasquez MD Primary Care Provider [phone] Encounter Details Date Type Department Care Team Description 07/19/2023 Cartridge Assembling Machine Adjuster Report Medical Records [address] [place] [address] Valdemar Reynoso PA-C Social History Tobacco Use [...] on filedocumented in this encounter Care Teams Manager Architecture Relationship Specialty Start Date End Date Snow Velasquez MD [address] [place] [address] [phone] PCP - General Internal Medicine 03/10/17 documented as of this encounter
--- OUTSIDE RECORDS SUMMARY | 2024-11-14 16:26 | XMS_ITS | Encounter Summary ---
Author Organization [facility] Address [address] [place] [address] Care Team Providers Care Staff Physical Therapist Name Role Phone Snow Velasquez MD Primary Care Provider [phone] Reason for Visit * Reason Comments E-prescribe Rx Request Encounter Details Date Type Department Care Team Description 06/20/2020 Refill Physiatry - [place] [address] [place] [address] [phone] Valdemar Reynoso PA-C E-prescribe Rx Request Social History Tobacco Use [...] encounter Miscellaneous Notes * Telephone Encounter - Viktoriya Dominguez M.A. - 06/20/2020 8:10 AM EDT Last ov 05/31/20 Last refill 04/22/20 No future ov documented in this encounter Plan of Treatment Not on file documented as of this encounter Visit Diagnoses Not on filedocumented in this encounter Care Teams Staff Physical Therapist Relationship Specialty Start Date End Date Snow Velasquez MD [address] [place] [address] [phone] PCP - General Internal Medicine 03/10/17 documented as of this encounter
--- OUTSIDE RECORDS SUMMARY | 2024-11-14 16:26 | XMS_ITS | Encounter Summary ---
Author Organization [employer] [facility] Address [address] [place] [address] Care Team Providers Care Film Developer Name Role Phone Snow Velasquez MD Primary Care Provider [phone] Encounter Details Date Type Department Care Team Description 01/01/2018 Release of Information Medical Records [address] [place] [address] Abstract, Provider Social History Tobacco Use Types [...] on filedocumented in this encounter Care Teams Film Developer Relationship Specialty Start Date End Date Snow Velasquez MD [address] [place] [address] [phone] PCP - General Internal Medicine 03/10/17 documented as of this encounter
--- OUTSIDE RECORDS SUMMARY | 2024-11-14 16:26 | XMS_ITS | Encounter Summary ---
Author Organization [employer] [facility] Address [address] [place] [address] Care Team Providers Care Knitted Goods Shaper Name Role Phone Snow Velasquez MD Primary Care Provider [phone] Encounter Details Date Type Department Care Team Description 02/10/2023 Record Changer Report Medical Records [address] [place] [address] Valdemar Reynoso PA-C Social History Tobacco Use [...] suspected to have Coronavirus/COVID-19? No / Unsure 02/02/2023 2:46 PM EDT documented as of this encounter Plan of Treatment Not on file documented as of this encounter Visit Diagnoses Not on filedocumented in this encounter Care Teams Knitted Goods Shaper Relationship Specialty Start Date End Date Snow Velasquez MD [address] [place] [address] [phone] PCP - General Internal Medicine 03/10/17 documented as of this encounter
--- OUTSIDE RECORDS SUMMARY | 2024-11-14 16:26 | XMS_ITS | Encounter Summary ---
Author Organization [facility] Address [address] [place] [address] Care Team Providers Care Bindery Operator Name Role Phone Snow Velasquez MD Primary Care Provider [phone] Reason for Visit * Reason Comments E-prescribe Rx Request Encounter Details Date Type Department Care Team Description 08/16/2019 Refill Adult Medicine [address] [phone] Christin Hung NP E-prescribe Rx Request Social History Tobacco Use [...] encounter Miscellaneous Notes * Telephone Encounter - Ewa Jose E - 08/16/2019 9:44 AM EDT Patient would like script to be: E-PRESCRIBED/FAXED TO PHARMACY WHEN WAS THE PATIENT'S LAST APPOINTMENT IN ADULT MEDICINE? 07-10-19 WHEN WAS THE LAST TIME THE PATIENT SAW THEIR PCP? Same as above Does patient have an upcoming appointment? No-patient refused appointment, will call back to book appointment (THE MEDICATION REQUESTED IS ON THE MED LIST ABOVE) All of the medications requested were on the CURRENT MEDS list Did you check the Pharmacy information above?: YES Patient wants: 30 -day supply Is this a mail order prescription request ? NO If the refill is from a FAXED refill request what is the RX # listed on the fax? N/A Patients current insurance carrier is: Payor: [employer] FFS / Plan: [employer] / Product Type: MEDICAID RISK documented in this encounter Plan of Treatment Not on file documented as of this encounter Visit Diagnoses Not on filedocumented in this encounter Care Teams Bindery Operator Relationship Specialty Start Date End Date Snow Velasquez MD [address] [place] [address] PCP - General Internal Medicine 03/10/17 documented as of this encounter
--- OUTSIDE RECORDS SUMMARY | 2024-11-14 16:26 | XMS_ITS | Encounter Summary ---
Author Organization [facility] Address [address] [place] [address] Care Team Providers Care Layout Designer Name Role Phone Snow Velasquez MD Primary Care Provider [phone] Reason for Visit * Reason Comments E-prescribe Rx Request Encounter Details Date Type Department Care Team Description 09/06/2020 Refill Adult Medicine [address] [phone] Snow Velasquez MD [address] [place] [address] [phone] E-prescribe Rx Request Social History Tobacco Use [...] Exposure Response Date Recorded In the last month, have you been in contact with someone who was confirmed or suspected to have Coronavirus / COVID-19? Unable to assess 08/14/2020 1:22 PM EDT documented as of this encounter Miscellaneous Notes * Telephone Encounter - Tessa Parra - 09/06/2020 8:49 AM EST Patient would like script to be: E-PRESCRIBED/FAXED TO PHARMACY WHEN WAS THE PATIENT'S LAST APPOINTMENT IN ADULT MEDICINE? 08/13/20 WHEN WAS THE LAST TIME THE PATIENT SAW THEIR PCP? Same as above Does patient have an upcoming appointment? 03/14/20 (THE MEDICATION REQUESTED IS ON THE MED LIST ABOVE) All of the medications requested were on the CURRENT MEDS list Did you check the Pharmacy information above?: YES Patient wants: 90 -day supply Is this a mail order prescription request ? NO If the refill is from a FAXED refill request what is the RX # listed on the fax? N/A Patients current insurance carrier is: Payor: [employer] FFS / Plan: [employer] / Product Type: MEDICAID RISK documented in this encounter Plan of Treatment Not on file documented as of this encounter Visit Diagnoses Not on filedocumented in this encounter Care Teams Layout Designer Relationship Specialty Start Date End Date Snow Velasquez MD [address] [place] [address] PCP - General Internal Medicine 03/10/17 documented as of this encounter
--- OUTSIDE RECORDS SUMMARY | 2024-11-14 16:26 | XMS_ITS | Encounter Summary ---
Author Organization [employer] [facility] Address [address] [place] [address] Care Team Providers Care Store Receiving Clerk Name Role Phone Snow Velasquez MD Primary Care Provider [phone] Encounter Details Date Type Department Care Team Description 12/11/2020 Pump Room Operator Report Medical Records [address] [place] [address] Shekhar Saavedra MD Social History Tobacco Use Types Packs/Day [...] or suspected to have Coronavirus / COVID-19? No / Unsure 12/04/2020 9:57 AM EST documented as of this encounter Plan of Treatment Not on file documented as of this encounter Visit Diagnoses Not on filedocumented in this encounter Care Teams Store Receiving Clerk Relationship Specialty Start Date End Date Snow Velasquez MD [address] [place] [address] PCP - General Internal Medicine 03/10/17 documented as of this encounter
--- OUTSIDE RECORDS SUMMARY | 2024-11-14 16:26 | XMS_ITS | Encounter Summary ---
Author Organization [employer] [facility] Address [address] [place] [address] Care Team Providers Care Senior Geologist Name Role Phone Snow Velasquez MD Primary Care Provider [phone] Encounter Details Date Type Department Care Team Description 06/29/2022 Hospital Medical Records [address] [place] [address] Abstract, Provider Social History Tobacco Use Types [...] suspected to have Coronavirus/COVID-19? No / Unsure 06/23/2022 3:34 PM EDT documented as of this encounter Plan of Treatment Not on file documented as of this encounter Visit Diagnoses Not on filedocumented in this encounter Care Teams Senior Geologist Relationship Specialty Start Date End Date Snow Velasquez MD [address] [place] [address] PCP - General Internal Medicine 03/10/17 documented as of this encounter
--- OUTSIDE RECORDS SUMMARY | 2024-11-14 16:26 | XMS_ITS | Encounter Summary ---
Author Organization [facility] Address [address] [place] [address] Care Team Providers Care Protective Clothing Issuer Name Role Phone Snow Velasquez MD Primary Care Provider [phone] Reason for Visit * Reason Onset Date Comments Abnormal Test Results 08/06/2020 Encounter Details Date Type Department Care Team Description 08/06/2020 Telephone Medicine/Pediatrics - [address] [phone] Snow Velasquez MD [address] [place] [address] [phone] Abnormal Test Results Social History Tobacco Use Types Packs/Day Years [...] encounter Miscellaneous Notes * Telephone Encounter - Prosper Pitts - 08/06/2020 9:06 AM EDT Betina from [employer] calling in Positive COVID for Patient. documented in this encounter Plan of Treatment Not on file documented as of this encounter Visit Diagnoses Not on filedocumented in this encounter Care Teams Protective Clothing Issuer Relationship Specialty Start Date End Date Snow Velasquez MD [address] [place] [phone] PCP - General Internal Medicine 03/10/17 documented as of this encounter
--- OUTSIDE RECORDS SUMMARY | 2024-11-14 16:26 | XMS_ITS | Encounter Summary ---
Author Organization [facility] Address [address] [place] [address] Care Team Providers Care Construction Quality Control Manager Name Role Phone Snow Velasquez MD Primary Care Provider [phone] Encounter Details Date Type Department Care Team Description 09/17/2022 User Interface Artist Report Medical Records [address] [place] [address] Shekhar Haddad MD Social History Tobacco Use [...] on filedocumented in this encounter Care Teams Construction Quality Control Manager Relationship Specialty Start Date End Date Snow Velasquez MD [address] [place] [address] [phone] PCP - General Internal Medicine 03/10/17 documented as of this encounter
--- OUTSIDE RECORDS SUMMARY | 2024-11-14 16:26 | XMS_ITS | Encounter Summary ---
[facility] Address [address] [place] [address] Care Team Providers Care Sales Representative Electric Service Name Role Phone Snow Velasquez MD Primary Care Provider [phone] Encounter Details Date Type Department Care Team Description 01/19/2024 Orders Only Adult Medicine [facility] [place] [place] [address] [place] [address] Fawad Rojo APRN [address] [place] [address] Tiredness; Fatigue, unspecified type Social History Tobacco Use Types Packs/Day Years [...] Procedure Name Priority Date/Time Associated Diagnosis Comments SLEEP STUDY-FULL NEURO 16 CHANNEL Routine 02/15/2023 Tiredness Fatigue, unspecified type documented in this encounter Results * SLEEP STUDY-FULL NEURO 16 CHANNEL (02/15/2023) 02/15/2023 Fawad Rojo APRN PULMONOLOGY documented in this encounter Visit Diagnoses Diagnosis Tiredness Other malaise and fatigue Fatigue, unspecified type documented in this encounter Care Teams Sales Representative Electric Service Relationship Specialty Start Date End Date Snow Velasquez MD [address] [place] [phone] PCP - General Internal Medicine 03/10/17 documented as of this encounter
--- OUTSIDE RECORDS SUMMARY | 2024-11-14 16:26 | XMS_ITS | Encounter Summary ---
Author Organization [facility] Address [address] [place] [address] Care Team Providers Care Egg Candler Name Role Phone Snow Velasquez MD Primary Care Provider Encounter Details Date Type Department Care Team Description 01/18/2023 Tool And Production Planner Report Medical Records [address] [place] [address] Tru Oates DO Social History Tobacco Use Types Packs/Day Years [...] suspected to have Coronavirus/COVID-19? No / Unsure 01/19/2023 10:26 AM EDT documented as of this encounter Plan of Treatment Not on file documented as of this encounter Visit Diagnoses Not on filedocumented in this encounter Care Teams Egg Candler Relationship Specialty Start Date End Date Snow Velasquez MD [address] [place] [address] PCP - General Internal Medicine 03/10/17 documented as of this encounter
--- OUTSIDE RECORDS SUMMARY | 2024-11-14 16:26 | XMS_ITS | Encounter Summary ---
Author Organization [employer] [facility] Address [address] [place] [address] Care Team Providers Care Mason Liner Name Role Phone Snow Velasquez MD Primary Care Provider [phone] Encounter Details Date Type Department Care Team Description 07/10/2024 Appeals Officer Report Medical Records [address] [place] [address] Valdemar Reynoso PA-C Social History Tobacco Use [...] on filedocumented in this encounter Care Teams Mason Liner Relationship Specialty Start Date End Date Snow Velasquez MD [address] [place] [address] [phone] PCP - General Internal Medicine 03/10/17 documented as of this encounter
--- OUTSIDE RECORDS SUMMARY | 2024-11-14 16:26 | XMS_ITS | Clinical Summary ---
Author Organization [facility] Address [address] [place] [address] Care Team Providers Care Doffer Name Role Phone Snow Velasquez MD Primary Care Provider [phone] Allergies Active Allergy Reactions Criticality Noted Date Comments Other 03/08/2017 Seasonal allergies Medications Medication Sig Dispensed Refills Start Date End Date Status acetaminophen (TYLENOL) 325 mg tablet TAKE 2 TABLETS BY MOUTH 3 TIMES A DAY DAILY NEEDED FOR OTHER PAIN 02/04/2024 Active loratadine (CLARITIN) 10 mg tablet Take 1 Tablet by mouth daily. 01/10/2024 Active lidocaine (XYLOCAINE) 5 % ointment Apply 1 Dose topically as needed for Other (pain) for up to 360 days. 01/10/2024 01/04/2025 Active cyclobenzaprine (FLEXERIL) 10 mg tablet 10/19/2023 Active cholecalciferol (VITAMIN D-3) 50 mcg (2,000 unit) tablet Take 1 tablet (2,000 Units total) by mouth 1 (one) time each day. 08/31/2023 Active fluticasone propionate (FLONASE) 50 mcg/actuation nasal spray 2 Sprays by Nasal route daily. 08/31/2023 Active terbutaline (BRETHINE) 5 mg tablet TAKE ONE TABLET BY MOUTH AT ONSET OF PRIAPISM. MAY REPEAT AFTER 8 HOURS IF PRIAPISM STILL PRESENT 07/07/2023 Active oxyCODONE-acetaminop hen (PERCOCET) 5-325 mg per tablet TAKE 1 TABLET BY MOUTH FOUR TIMES A DAY FOR 7 DAYS 05/24/2023 Active lurasidone (Latuda) 20 mg tablet Take 1 Tablet by mouth daily. 05/03/2022 Active busPIRone (BUSPAR) 30 mg tablet TK 1 T PO TID 07/23/2020 Active zolpidem (AMBIEN) 10 mg tablet Take 10 mg by mouth at bedtime. Active clonazePAM (KlonoPIN) 0.5 mg tablet Take 1 Tab by mouth 2 times daily as needed for Anxiety. 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 Fatty liver 03/02/2022 Gallbladder polyp 03/02/2022 Overview (10/23/2024): 2 x 3 mm, follow up 1 year Elevated LFTs 01/28/2022 Mixed hyperlipidemia 01/28/2022 Thoracic outlet syndrome 03/18/2021 COVID-19 virus infection 08/06/2020 Fibromyalgia 11/06/2019 Vitamin D deficiency 09/28/2019 Antral gastritis 01/26/2019 Overview (10/23/2024): Bx showed a single non-necrotizing microgranuloma Heartburn 12/14/2018 Hypercholesteremia 08/04/2017 Cervicalgia 05/24/2017 Myalgia 05/24/2017 Right shoulder tendinitis 05/24/2017 Anxiety 03/08/2017 PTSD (post-traumatic stress disorder) 03/08/2017 Recurrent major depressive disorder 03/08/2017 Immunizations Name Administration Dates Next Due Tdap Tetanus diptheria acell ular pertussis (Boostrix; Adacel) 7yo and older 03/01/2016 Medical History Medical History Date Comments Hypercholesteremia 08/04/2017 DX:Hyperchole steremia Heartburn 12/14/2018 DX:Heartburn Antral gastritis 01/26/2019 DX:Antral gastr itis; COMMENT: Bx showed a single non-necrotizing microgranuloma History of incarceration 01/26/2019 DX:Hist ory of incarceration Family History Medical History Relation Name Comments Other: HEART DISEASE Father Other: PANCREATIC CA Father Stomach cancer Maternal Grandfather Cervical cancer Mother Heart failure Paternal Grandfather Other: DIABETIC Paternal Grandfather Other: pancreas problem Paternal Grandfather Alzheimer's disease Paternal Grandmother Arthritis Paternal Grandmother Other: FIBROMYALGIA Sister Relation Name Status Comments Father Maternal Grandfather Mother Paternal Grandfather Paternal Grandmother Sister Social History Tobacco Use Types Packs/Day Years Used Date Smoking Tobacco: Former Cigarettes Q uit: 10/18/2003 Smokeless Tobacco: Never Alcohol Use Standard Drinks/Week Comments Yes 0 (1 standard drink = 0.6 oz pur e alcohol) Sex and Gender Information Value Date Recorded Sex Assigned at Not on file Gender Identity Not on file Sexual Orientation Not on file Obstetrics History Last Filed Vital Signs Vital Sign Reading Time Taken Comments Blood Pressure 122/76 01/10/2024 11:27 AM EDT Pulse 94 01/10/2024 11:27 AM EDT Temperature - - Respiratory Rate - - Oxygen Saturation - - Inhaled Oxygen Concentration - - Weight 75.1 kg (165 lb 9.6 oz) 01/10/2024 11:27 AM EDT Height 168.9 cm (5' 6.5 ) 01/10/2024 11:27 AM ED T Body Mass Index 26.33 01/10/2024 11:27 AM EDT Plan of Treatment Health Maintenance Due Date Last Done Comments Pneumococcal Vaccine: Pediatrics (0 to 5 Years) and At-Risk Patients (6 to 64 Years) (1 of 2 - PCV) 1983 Hepatitis B Vaccines (1 of 3 - 19+ 3-dose series) 1996 Colorectal Cancer Screening: Colonoscopy 09/26/2022 Depression Screening 09/26/2022 Social Influencers of Health Screening 09/26/2022 COVID-19 Vaccine ( - 2023-2 5 season) 2024 03/08/2021, 02/18/2021 Influenza Vaccine (#1) 2024 DTaP,Tdap,and Td Vaccines (2 - Td or Tdap) 03/01/2026 03/01/2016 Cholesterol Screening (Lipid Panel) 01/09/2029 01/10/2024 HIV Screening Completed 09/28/2019 Hepatitis C Screening Completed 02/04/2022 HIB Vaccines Aged Out No longer eligi ble based on patient's age to complete this topic HPV Vaccines Aged Out No longer eligi ble based on patient's age to complete this topic Hepatitis A Vaccines Aged Out No long er eligible based on patient's age to complete this topic IPV Vaccines Aged Out No longer eligi ble based on patient's age to complete this topic MMR Vaccines Aged Out No longer eligi ble based on patient's age to complete this topic Meningococcal ACWY Vaccine Aged Out N o longer eligible based on patient's age to complete this topic RSV Immunization Patients Under 20 months Aged Out No longer eligible b ased on patient's age to complete this topic Varicella Vaccines Aged Out No longer eligible based on patient's age to complete this topic Procedures Procedure Name Priority Date/Time Associated Diagnosis Comments LIPID PANEL Routine 01/10/2024 HEPATITIS C SCREENING Routine 02/04/2022 HIV SCREENING Routine 09/28/2019 from Last 3 Months or Most Recently Relevant to Health Maintenance Results * (ABNORMAL) Lipid panel (01/10/2024) LDL/HDL Ratio 4 0 - 4 Triglycerides 136 0 - 150 mg/dL Cholesterol 256(A) 0 - 200 mg/dL HDL 71 40 mg/dL LDL Cholesterol 158(A) 0 - 100 mg/dL Blood Venous blood specimen / Unknown Historical Provider LAB BLOOD ORDERAB LES * Hepatitis C Screening (02/04/2022) Hepatitis C Screening abstracted Historical Provider MD CRUZ MAINTENSEYMOUR E * HIV Screening (09/28/2019) HIV Screening abstrated Historical Provider MD CRUZ MAINTENANC E from Last 3 Months or Most Recently Relevant to Health Maintenance Care Teams Doffer Relationship Specialty Start Date End Date Snow Velasquez MD [address] [place] [phone] PCP - General Internal Medicine 03/10/17
--- OUTSIDE RECORDS SUMMARY | 2024-11-14 16:26 | XMS_ITS | Encounter Summary ---
Author Organization [facility] Address [address] [place] [address] Care Team Providers Care Creative Designer Name Role Phone Snow Velasquez MD Primary Care Provider [phone] Reason for Visit * Reason Onset Date Comments Mychart Rx Refill 01/09/2019 Encounter Details Date Type Department Care Team Description 01/09/2019 Refill Adult Medicine [address] [phone] Snow Velasquez MD [address] [place] [address] [phone] Mychart Rx Refill Social History Tobacco Use Types Packs/Day Years [...] encounter Miscellaneous Notes * Telephone Encounter - Gudelia Enriquez M.A. - 01/10/2019 6:52 AM EDT Lab Results Component Value Date NA 139 12/12/2018 K 3.9 12/12/2018 CO2 28 12/12/2018 CL 107 12/12/2018 BUN 15 12/12/2018 CREAT 0.94 12/12/2018 GLU 95 12/12/2018 CA 8.6 12/12/2018 GFR > 60 12/12/2018 Last ov with pcp 12/06/18 * Telephone Encounter - Gudelia Enriquez M.A. - 01/10/2019 6:52 AM EDTFrom: Vinnie Weeks To: Snow Velasquez MD Sent: 01/09/2019 5:03 PM EDT Subject: Medication Renewal Request Original authorizing provider: MD Vinnie Emery would like a refill of the following medications: ibuprofen (ADVIL,MOTRIN) 800 MG tablet [Snow Velasquez MD] Loratadine (CLARITIN) 10 MG Cap [Snow Velasquez MD] Preferred pharmacy: [address] Comment: documented in this encounter Plan of Treatment Not on file documented as of this encounter Visit Diagnoses Not on filedocumented in this encounter Care Teams Creative Designer Relationship Specialty Start Date End Date Snow Velasquez MD [address] [place] [address] PCP - General Internal Medicine 03/10/17 documented as of this encounter
--- OUTSIDE RECORDS SUMMARY | 2024-11-14 16:26 | XMS_ITS | Encounter Summary ---
Author Organization [facility] Address [address] [place] [address] Care Team Providers Care Flattening Press Operator Name Role Phone Snow Velasquez MD Primary Care Provider [phone] Encounter Details Date Type Department Care Team Description 04/28/2024 Public Safety Teacher Report Medical Records [address] [place] [address] Tru Oates DO Social History Tobacco Use [...] on filedocumented in this encounter Care Teams Flattening Press Operator Relationship Specialty Start Date End Date Snow Velasquez MD [address] [place] [address] [phone] PCP - General Internal Medicine 03/10/17 documented as of this encounter
--- OUTSIDE RECORDS SUMMARY | 2024-11-14 16:26 | XMS_ITS | Encounter Summary ---
Author Organization [facility] Address [address] [place] [address] Care Team Providers Care Beef Boner Name Role Phone Snow Velasquez MD Primary Care Provider [phone] Reason for Visit * Reason Comments E-prescribe Rx Request Encounter Details Date Type Department Care Team Description 10/27/2019 Refill Gastroenterology - [place] [address] [facility] [address] [place] [address] Ritesh Escamilla PA-C E-prescribe Rx Request Social History Tobacco [...] on filedocumented in this encounter Care Teams Beef Boner Relationship Specialty Start Date End Date Snow Velasquez MD [address] [place] [address] [phone] PCP - General Internal Medicine 03/10/17 documented as of this encounter
--- OUTSIDE RECORDS SUMMARY | 2024-11-14 16:26 | XMS_ITS | Encounter Summary ---
Author Organization [facility] Address [address] [place] [address] Care Team Providers Care Driver Service Technician Name Role Phone Snow Velasquez MD Primary Care Provider [phone] Encounter Details Date Type Department Care Team Description 01/10/2019 Hospital Medical Records [address] [place] [address] Lillian Cruz MD [address] [place] [address] [phone] Social History Tobacco Use Types Packs/Day Years [...] on filedocumented in this encounter Care Teams Driver Service Technician Relationship Specialty Start Date End Date Snow Velasquez MD [address] [place] [address] PCP - General Internal Medicine 03/10/17 documented as of this encounter
== END 2024-11-14 16:14 | disposition home or self-care (01) ==
PROVIDERS: Visit Provider Urology
DX: N48.39 Other priapism (principal)
CPT/HCPCS: 99214

== ENCOUNTER → 2024-11-14 15:36 | Outpatient (BNVA) | payer OTHER, SELFPAY | PROVIDERS: Visit Provider Urology | DX: N48.39 Other priapism (principal) | CPT/HCPCS: 99212 ==

== ENCOUNTER 2025-01-16 09:16 | Outpatient (REF) | payer OTHER, SELFPAY ==
--- OUTSIDE RECORDS SUMMARY | 2025-01-16 10:20 | XMS_ITS | Encounter Summary ---
Author Organization [employer] [facility] Address [address] [place] [address] Care Team Providers Care Rag Production Worker Name Role Phone Snow Velasquez MD Primary Care Provider [phone] Reason for Visit * Reason Comments E-prescribe Rx Request Encounter Details Date Type Department Care Team Description 10/27/2019 Refill Gastroenterology - [place] [address] [facility] [address] [place] [address] Ritesh Escamilla PA-C E-prescribe Rx [...] on filedocumented in this encounter Care Teams Rag Production Worker Relationship Specialty Start Date End Date Snow Velasquez MD [address] [place] [address] [phone] PCP - General Internal Medicine 03/10/17 documented as of this encounter
--- OUTSIDE RECORDS SUMMARY | 2025-01-16 10:20 | XMS_ITS | Encounter Summary ---
Author Organization [facility] [facility] Address [address] [place] [address] Care Team Providers Care Intranet Developer Name Role Phone Snow Velasquez MD Primary Care Provider [phone] Encounter Details Date Type Department Care Team Description 10/29/2023 Orders Only Medical Records [address] [place] [address] Darwin Guan Social History Tobacco Use Types Packs/Day Years [...] Name Priority Date/Time Associated Diagnosis Comments OUTSIDE PLAIN FILM Routine 11/13/2022 documented in this encounter Results * OUTSIDE PLAIN FILM (11/13/2022) Darwin Guan RADIOLOGY documented in this encounter Visit Diagnoses Not on filedocumented in this encounter Care Teams Intranet Developer Relationship Specialty Start Date End Date Snow Velasquez MD [address] [place] [address] PCP - General Internal Medicine 03/10/17 documented as of this encounter
--- OUTSIDE RECORDS SUMMARY | 2025-01-16 10:20 | XMS_ITS | Encounter Summary ---
Author Organization [facility] Address [address] [place] [address] Care Team Providers Care Bottling Attendant Name Role Phone Snow Velasquez MD Primary Care Provider [phone] Encounter Details Date Type Department Care Team Description 01/19/2024 Orders Only Adult Medicine [facility] [address] [place] [address] Fawad Rojo APRN [address] [place] [address] Tiredness; Fatigue, unspecified type Social History Tobacco [...] type documented in this encounter Care Teams Bottling Attendant Relationship Specialty Start Date End Date Snow Velasquez MD [address] [place] [address] PCP - General Internal Medicine 03/10/17 documented as of this encounter
--- OUTSIDE RECORDS SUMMARY | 2025-01-16 10:20 | XMS_ITS | Encounter Summary ---
Author Organization [facility] [facility] Address [address] [place] [address] Care Team Providers Care Wire Mill Rover Name Role Phone Snow Velasquez MD Primary Care Provider [phone] Encounter Details Date Type Department Care Team Description 07/19/2023 Retail Shift Leader Report Medical Records [address] [place] [address] Valdemar Reynoso PA-C Social History Tobacco Use [...] on filedocumented in this encounter Care Teams Wire Mill Rover Relationship Specialty Start Date End Date Snow Velasquez MD [address] [place] [address] [phone] PCP - General Internal Medicine 03/10/17 documented as of this encounter
--- OUTSIDE RECORDS SUMMARY | 2025-01-16 10:20 | XMS_ITS | Encounter Summary ---
Author Organization [employer] [facility] Address [address] [place] [address] Care Team Providers Care Golf Course Ranger Name Role Phone Snow Velasquez MD Primary Care Provider [phone] Encounter Details Date Type Department Care Team Description 05/17/2018 Release of Information Medical Records [address] [place] [address] Abstract, Provider Social History Tobacco Use Types [...] on filedocumented in this encounter Care Teams Golf Course Ranger Relationship Specialty Start Date End Date Snow Velasquez MD [address] [place] [address] [phone] PCP - General Internal Medicine 03/10/17 documented as of this encounter
--- OUTSIDE RECORDS SUMMARY | 2025-01-16 10:20 | XMS_ITS | Encounter Summary ---
Author Organization [facility] Address [address] [place] [address] Care Team Providers Care Riveter Automobile Brakes Name Role Phone Snow Velasquez MD Primary Care Provider [phone] Reason for Visit * Reason Comments E-prescribe Rx Request Encounter Details Date Type Department Care Team Description 08/16/2019 Refill Adult Medicine [address] [phone] Christin Hung NP E-prescribe Rx Request Social [...] N/A Patients current insurance carrier is: Payor: [employer] FFS / Plan: [employer]IANCE / Product Type: MEDICAID RISK documented in this encounter Plan of Treatment Not on file documented as of this encounter Visit Diagnoses Not on filedocumented in this encounter Care Teams Riveter Automobile Brakes Relationship Specialty Start Date End Date Snow Velasquez MD [address] [place] [address] PCP - General Internal Medicine 03/10/17 documented as of this encounter
--- OUTSIDE RECORDS SUMMARY | 2025-01-16 10:20 | XMS_ITS | Encounter Summary ---
Author Organization [employer] [facility] Address [address] [place] [address] Care Team Providers Care Field Marketing Specialist Name Role Phone Snow Velasquez MD Primary Care Provider [phone] Encounter Details Date Type Department Care Team Description 02/21/2024 Search Lead Report Medical Records [address] [place] [address] Tru Oates DO Social History Tobacco Use [...] on filedocumented in this encounter Care Teams Field Marketing Specialist Relationship Specialty Start Date End Date Snow Velasquez MD [address] [place] [address] [phone] PCP - General Internal Medicine 03/10/17 documented as of this encounter
--- OUTSIDE RECORDS SUMMARY | 2025-01-16 10:20 | XMS_ITS | Encounter Summary ---
Author Organization [facility] [facility] Address [address] [place] [address] Care Team Providers Care Export Sales Manager Name Role Phone Snow Velasquez MD Primary Care Provider [phone] Reason for Visit * Reason Comments E-prescribe Rx Request Encounter Details Date Type Department Care Team Description 08/04/2019 Refill Gastroenterology - [place] [address] [facility] [address] [place] [address] Eduard Ramirez MD E-prescribe Rx [...] on filedocumented in this encounter Care Teams Export Sales Manager Relationship Specialty Start Date End Date Snow Velasquez MD [address] [place] [address] [phone] PCP - General Internal Medicine 03/10/17 documented as of this encounter
--- OUTSIDE RECORDS SUMMARY | 2025-01-16 10:20 | XMS_ITS | Encounter Summary ---
Author Organization [employer] [facility] Address [address] [place] [address] Care Team Providers Care Meeting Coordinator Name Role Phone Snow Velasquez MD Primary Care Provider [phone] Encounter Details Date Type Department Care Team Description 09/13/2023 Plater Apprentice Report Medical Records [address] [place] [address] Valdemar Reynoso PA-C Social History Tobacco Use [...] on filedocumented in this encounter Care Teams Meeting Coordinator Relationship Specialty Start Date End Date Snow Velasquez MD [address] [place] [address] PCP - General Internal Medicine 03/10/17 documented as of this encounter
--- OUTSIDE RECORDS SUMMARY | 2025-01-16 10:20 | XMS_ITS | Encounter Summary ---
Author Organization [email or web address] [facility] Address [address] [place] [address] Care Team Providers Care Litigation Legal Assistant Name Role Phone Snow Velasquez MD Primary Care Provider [phone] Encounter Details Date Type Department Care Team Description 12/15/2023 Manager Telemetry Report Medical Records [address] [place] [address] Valdemar Reynoso PA-C Social History Tobacco Use [...] on filedocumented in this encounter Care Teams Litigation Legal Assistant Relationship Specialty Start Date End Date Snow Velasquez MD [address] [place] [address] [phone] PCP - General Internal Medicine 03/10/17 documented as of this encounter
--- OUTSIDE RECORDS SUMMARY | 2025-01-16 10:20 | XMS_ITS | Encounter Summary ---
Author Organization [facility] Address [address] [place] [address] Care Team Providers Care Oil Heat Technician Name Role Phone Villa Renee MD Primary Care Provider Miroslava Snow Monahan MD Primary Care Provider [phone] Encounter Details Date Type Department Care Team Description 1975 Counter Weigher Report Medical Records [address] [place] [address] Valdemar Reynoso PA-C Social History Tobacco Use [...] on filedocumented in this encounter Care Teams Oil Heat Technician Relationship Specialty Start Date End Date Villa Renee MD PCP - General Internal Medicine 03/04/17 7 Snow Velasquez MD [address] [place] [address] [phone] PCP - General Internal Medicine 03/10/17 documented as of this encounter
--- OUTSIDE RECORDS SUMMARY | 2025-01-16 10:20 | XMS_ITS | Encounter Summary ---
Author Organization [facility] Address [address] [place] [address] Care Team Providers Care Piccolo Mechanic Name Role Phone Snow Velasquez MD Primary Care Provider [phone] Reason for Visit * Reason Comments E-prescribe Rx Request Encounter Details Date Type Department Care Team Description 03/04/2020 Refill Physiatry - [employer] [address] [place] [address] [phone] Valdemar Reynoso PA-C E-prescribe Rx Request Social [...] Telephone Encounter - Viktoriya Dominguez M.A. - 03/04/2020 9:07 AM EDT Last ov 01/09/20 Last refill 01/09/20 No future ov documented in this encounter Plan of Treatment Not on file documented as of this encounter Visit Diagnoses Not on filedocumented in this encounter Care Teams Piccolo Mechanic Relationship Specialty Start Date End Date Snow Velasquez MD [address] [place] [address] [phone] PCP - General Internal Medicine 03/10/17 documented as of this encounter
--- OUTSIDE RECORDS SUMMARY | 2025-01-16 10:20 | XMS_ITS | Encounter Summary ---
Author Organization [facility] Address [address] [place] [address] Care Team Providers Care Tissue Recovery Technician Name Role Phone Snow Velasquez MD Primary Care Provider [phone] Encounter Details Date Type Department Care Team Description 12/31/2022 Plastic Sewer Report Medical Records [address] [place] [address] Valdemar Reynoso PA-C Social History Tobacco Use [...] on filedocumented in this encounter Care Teams Tissue Recovery Technician Relationship Specialty Start Date End Date Snow Velasquez MD [address] [place] [address] [phone] PCP - General Internal Medicine 03/10/17 documented as of this encounter
--- OUTSIDE RECORDS SUMMARY | 2025-01-16 10:20 | XMS_ITS | Encounter Summary ---
Author Organization [facility] Address [address] [place] [address] Care Team Providers Care Assistant Brand Manager Name Role Phone Snow Velasquez MD Primary Care Provider [phone] Encounter Details Date Type Department Care Team Description 06/29/2022 Hospital Medical Records [address] [place] [address] Social History Tobacco Use Types Packs/Day Years [...] on filedocumented in this encounter Care Teams Assistant Brand Manager Relationship Specialty Start Date End Date Snow Velasquez MD [address] [place] [address] PCP - General Internal Medicine 03/10/17 documented as of this encounter
--- OUTSIDE RECORDS SUMMARY | 2025-01-16 10:20 | XMS_ITS | Encounter Summary ---
Author Organization [facility] Address [address] [place] [address] Care Team Providers Care Carpenter And Joiner Name Role Phone Snow Velasquez MD Primary Care Provider [phone] Encounter Details Date Type Department Care Team Description 06/27/2022 Hospital Medical Records [address] [place] [address] Jose Salas Social History Tobacco Use Types Packs/Day Years [...] on filedocumented in this encounter Care Teams Carpenter And Joiner Relationship Specialty Start Date End Date Snow Velasquez MD [address] [place] [address] PCP - General Internal Medicine 03/10/17 documented as of this encounter
--- OUTSIDE RECORDS SUMMARY | 2025-01-16 10:20 | XMS_ITS | Clinical Summary ---
Author Organization [facility] Address [address] [place] [address] Care Team Providers Care Developer Analyst Name Role Phone Snow Velasquez MD Primary Care Provider [phone] Allergies No known active allergies Medications Medication [...] age to complete this topic Care Teams Developer Analyst Relationship Specialty Start Date End Date Snow Velasquez MD PCP - General Internal Medicine 11/24/23
--- OUTSIDE RECORDS SUMMARY | 2025-01-16 10:20 | XMS_ITS | Encounter Summary ---
Author Organization [facility] Address [address] [place] [address] Care Team Providers Care Movie Theater Manager Name Role Phone Snow Velasquez MD Primary Care Provider [phone] Reason for Visit * Reason Comments E-prescribe Rx Request Encounter Details Date Type Department Care Team Description 09/06/2020 Refill Adult Medicine [address] [phone] Snow Velasquez MD [address] [place] [address] [phone] E-prescribe Rx Request Social History Tobacco Use [...] N/A Patients current insurance carrier is: Payor: [employer] FFS / Plan: [employer] / Product Type: MEDICAID RISK documented in this encounter Plan of Treatment Not on file documented as of this encounter Visit Diagnoses Not on filedocumented in this encounter Care Teams Movie Theater Manager Relationship Specialty Start Date End Date Snow Velasquez MD [address] [place] [address] PCP - General Internal Medicine 03/10/17 documented as of this encounter
--- OUTSIDE RECORDS SUMMARY | 2025-01-16 10:20 | XMS_ITS | Encounter Summary ---
Author Organization [facility] Address [address] [place] [address] Care Team Providers Care Metal Punch Press Operator Name Role Phone Snow Velasquez MD Primary Care Provider [phone] Reason for Visit * Reason Comments E-prescribe Rx Request Encounter Details Date Type Department Care Team Description 06/20/2020 Refill Physiatry - [place] [address] [place] [address] [phone] Valdemar Reynoso PA-C E-prescribe Rx Request Social [...] on filedocumented in this encounter Care Teams Metal Punch Press Operator Relationship Specialty Start Date End Date Snow Velasquez MD [address] [place] [address] [phone] PCP - General Internal Medicine 03/10/17 documented as of this encounter
--- OUTSIDE RECORDS SUMMARY | 2025-01-16 10:20 | XMS_ITS | Encounter Summary ---
Author Organization [facility] Address [address] [place] [address] Care Team Providers Care Battery Repairer Name Role Phone Snow Velasquez MD Primary Care Provider [phone] Reason for Visit * Reason Onset Date Comments medication problems 03/03/2023 Encounter Details Date Type Department Care Team Description 03/03/2023 Telephone Adult Medicine [address] [phone] Snow Velasquez MD [address] [place] [address] [phone] medication problems Social History Tobacco Use Types [...] encounter Miscellaneous Notes * Telephone Encounter - Christina Pisano M.A. - 03/03/2023 2:27 PM EDT Per TE pt requested 90 days supply for Fluticasone nasal spray. New script pended,sent to provider for review * Telephone Encounter - Josekary Jono - 03/03/2023 2:20 PM EDT What is the name of the medication patient is having a problem with?: fluticasone 50 MCG/ACT nasal spray What is the problem?: please send on new Rx for 90 day supply Is the patient calling about the problem? NO If the patient is not the caller who is? Faxed from [facility] Is this a NEW medication?: How long has the patient been taking this medication? Who prescribed this medication for the patient? Anil Dia Who is patients PCP?: Snow Velasquez Payor: [employer] FFS / Plan: [facility] [employer] / Product Type: MEDICAID RISK documented in this encounter Plan of Treatment Not on file documented as of this encounter Visit Diagnoses Not on filedocumented in this encounter Care Teams Battery Repairer Relationship Specialty Start Date End Date Snow Velasquez MD [address] [place] [address] PCP - General Internal Medicine 03/10/17 documented as of this encounter
--- OUTSIDE RECORDS SUMMARY | 2025-01-16 10:20 | XMS_ITS | Encounter Summary ---
Author Organization [facility] Address [address] [place] [address] Care Team Providers Care Reinforcing Steel Machine Operator Name Role Phone Snow Velasquez MD Primary Care Provider [phone] Encounter Details Date Type Department Care Team Description 07/01/2017 Pt. Non Urgent Medical Question Physiatry - [place] [address] [place] [address] [phone] Nick Quan PA-C Social History Tobacco Use Types Packs/Day Years Used Date Smoking Tobacco: Former Comments:quit 2003, unsure o f exact date Sex Assigned at Date Recorded Male 06/14/2020 9:38 PM E DT Job Start Date Occupation Industry Not on file Not on file Not on file documented as of this encounter Progress Notes * Isabel Hwang M.A. - 07/01/2017 9:47 AM EDTFrom: Vinnie Weeks To: Nick Quan PA-C Sent: 07/01/2017 9:45 AM EDT Subject: new medication Feeling to many side effects from this medication, and it's not helping with the pain. In fact, I am now in much more pain! The neck pain is getting worse and is causing me migraine headaches and stiffness of the neck. The lower back pain, shoulder and wrist pains have not reduced at all. Thank you for your time and consideration of this matter. Att. Vinnie Weeks documented in this encounter Plan of Treatment Not on file documented as of this encounter Visit Diagnoses Not on filedocumented in this encounter Care Teams Reinforcing Steel Machine Operator Relationship Specialty Start Date End Date Snow Velasquez MD [address] [place] [address] PCP - General Internal Medicine 03/10/17 documented as of this encounter
--- OUTSIDE RECORDS SUMMARY | 2025-01-16 10:20 | XMS_ITS | Encounter Summary ---
Author Organization [facility] Address [address] [place] [address] Care Team Providers Care Metal Moulder Name Role Phone Snow Velasquez MD Primary Care Provider [phone] Encounter Details Date Type Department Care Team Description 07/06/2023 Lean Manager Report Medical Records [address] [place] [address] Booker Hendrickson, PAFeliciaC Social History Tobacco Use Types Packs/Day Years [...] filedocumented in this encounter Care Teams Metal Moulder Relationship Specialty Start Date End Date Snow Velasquez MD [address] [place] [address] PCP - General Internal Medicine 03/10/17 documented as of this encounter
--- OUTSIDE RECORDS SUMMARY | 2025-01-16 10:20 | XMS_ITS | Encounter Summary ---
Author Organization [facility] Address [address] [place] [address] Care Team Providers Care Ship'S Officer Name Role Phone Snow Velasquez MD Primary Care Provider [phone] Encounter Details Date Type Department Care Team Description 01/18/2023 Certified Detention Deputy Report Medical Records [address] [place] [address] Tru Oates DO Social History Tobacco Use [...] on filedocumented in this encounter Care Teams Ship'S Officer Relationship Specialty Start Date End Date Snow Velasquez MD [address] [place] [address] PCP - General Internal Medicine 03/10/17 documented as of this encounter
--- OUTSIDE RECORDS SUMMARY | 2025-01-16 10:20 | XMS_ITS | Encounter Summary ---
Author Organization [facility] Address [address] [place] [address] Care Team Providers Care Casket Liner Name Role Phone Snow Velasquez MD Primary Care Provider [phone] Reason for Visit * Reason Onset Date Comments E-prescribe Rx Request 05/07/2019 psyllium (METAMUCIL) 0.52 G capsule [ Encounter Details Date Type Department Care Team Description 05/07/2019 Refill Gastroenterology - [place] [address] [place] [phone] Ritesh Escamilla PA-C E-prescribe Rx Request (psyllium [...] 05/08/2019 7:52 AM EDTFrom: Vinnie Weeks To: iRtesh Escamilla PA-C Sent: 05/07/2019 10:31 AM EDT Subject: Medication Renewal Request Original authorizing provider: Ritesh Escamilla PA-C Vinnie Weeks would like a refill of the following medications: psyllium (METAMUCIL) 0.52 G capsule [Ritesh Escamilla PA-C] Preferred pharmacy: [address] Comment: Medication renewals requested in this message routed to other providers: omeprazole (PRILOSEC) 20 MG capsule [Eduard Ramirez MD] cyclobenzaprine (FLEXERIL) 5 MG tablet [James Sharma MD] documented in this encounter Plan of Treatment Not on file documented as of this encounter Visit Diagnoses Not on filedocumented in this encounter Care Teams Casket Liner Relationship Specialty Start Date End Date Snow Velasquez MD [address] [place] [address] PCP - General Internal Medicine 03/10/17 documented as of this encounter
--- OUTSIDE RECORDS SUMMARY | 2025-01-16 10:20 | XMS_ITS | Encounter Summary ---
Author Organization [facility] Address [address] [place] [address] Care Team Providers Care Pr Manager Name Role Phone Snow Velasquez MD Primary Care Provider [phone] Reason for Visit * Reason Onset Date Comments medication problems 03/23/2023 Encounter Details Date Type Department Care Team Description 03/23/2023 Telephone Adult Medicine [address] [phone] Snow Velasquez MD [address] [place] [address] [phone] medication problems Social History Tobacco Use Types [...] not the caller who is? Faxed from [facility] Is this a NEW medication?: How long has the patient been taking this medication? Who prescribed this medication for the patient? Anil Dia Who is patients PCP?: Snow Velasquez Payor: [facility] [employer] [facility] FFS / Plan: [facility] [employer] / Product Type: MEDICAID RISK documented in this encounter Plan of Treatment Not on file documented as of this encounter Visit Diagnoses Not on filedocumented in this encounter Care Teams Pr Manager Relationship Specialty Start Date End Date Snow Velasquez MD [address] [place] [address] PCP - General Internal Medicine 03/10/17 documented as of this encounter
--- OUTSIDE RECORDS SUMMARY | 2025-01-16 10:20 | XMS_ITS | Encounter Summary ---
Author Organization [facility] Address [address] [place] [address] Care Team Providers Care Unit Leader Name Role Phone Snow Velasquez MD Primary Care Provider [phone] Reason for Visit * Reason Onset Date Comments refill request 02/25/2020 DIPHENOXYLATE-AT ROP 2.5-0.025 Encounter Details Date Type Department Care Team Description 02/25/2020 Refill Gastroenterology - [place] [address] [place] [address] Ritesh Escamilla PA-C refill request (DIPHENOXYLATE-ATROP 2.5-0.025) Social History Tobacco Use Types Packs/Day Years [...] on filedocumented in this encounter Care Teams Unit Leader Relationship Specialty Start Date End Date Snow Velasquez MD [address] [place] [address] PCP - General Internal Medicine 03/10/17 documented as of this encounter
--- OUTSIDE RECORDS SUMMARY | 2025-01-16 10:20 | XMS_ITS | Encounter Summary ---
Author Organization [facility] Address [address] [place] [address] Care Team Providers Care Speech Correction Assistant Name Role Phone Snow Velasquez MD Primary Care Provider [phone] Encounter Details Date Type Department Care Team Description 05/24/2023 Slot Service Specialist Report Medical Records [address] [place] [address] Tru Oates DO Social History Tobacco Use [...] on filedocumented in this encounter Care Teams Speech Correction Assistant Relationship Specialty Start Date End Date Snow Velasquez MD [address] [place] [address] [phone] PCP - General Internal Medicine 03/10/17 documented as of this encounter
--- OUTSIDE RECORDS SUMMARY | 2025-01-16 10:20 | XMS_ITS | Encounter Summary ---
Author Organization [facility] Address [address] [place] [address] Care Team Providers Care Range Examiner Name Role Phone Snow Velasquez MD Primary Care Provider [phone] Encounter Details Date Type Department Care Team Description 01/19/2024 Vice President For Instruction Report Medical Records [address] [place] [address] Valdemar Reynoso PA-C Social History Tobacco Use [...] on filedocumented in this encounter Care Teams Range Examiner Relationship Specialty Start Date End Date Snow Velasquez MD [address] [place] [address] [phone] PCP - General Internal Medicine 03/10/17 documented as of this encounter
--- OUTSIDE RECORDS SUMMARY | 2025-01-16 10:20 | XMS_ITS | Encounter Summary ---
Author Organization [facility] Address [address] [place] [address] Care Team Providers Care Recoating Machine Operator Name Role Phone Snow Velasquez MD Primary Care Provider [phone] Encounter Details Date Type Department Care Team Description 08/09/2020 Pt. Non Urgent Medic al Question Medicine/Pediatrics - [address] [phone] Christin Hung NP Social History Tobacco Use Types Packs/Day Years [...] as of this encounter Progress Notes * Christin Hung NP - 08/09/2020 4:31 PM EDT Revised and signed. * Christin Hung NP - 08/09/2020 4:06 PM EDT If he wants to get retested, I cannot predict when his test will be negative, because it can take days, weeks, or months depending on the person. * Christin Hung NP - 08/09/2020 4:05 PM EDT Please advise patient that there is no need to retest to clear him to return to work. He must simply follow CDC guidelines which were outlined this morning when nursing staff called. documented in this encounter Miscellaneous Notes * Telephone Encounter - Tracee Lui M.A. - 08/09/2020 3:58 PM EDTFrom: Vinnie Weeks To: Christin Hung NP Sent: 08/09/2020 3:57 PM EDT Subject: Question regarding COVID-19 TESTING I have a question about COVID-19 TESTING resulted on 08/06/20 at 9:10 AM. How soon can I get retested? documented in this encounter Plan of Treatment Not on file documented as of this encounter Visit Diagnoses Not on filedocumented in this encounter Care Teams Recoating Machine Operator Relationship Specialty Start Date End Date Snow Velasquez MD [address] [place] [address] PCP - General Internal Medicine 03/10/17 documented as of this encounter
--- OUTSIDE RECORDS SUMMARY | 2025-01-16 10:20 | XMS_ITS | Encounter Summary ---
Author Organization [facility] Address [address] [place] [address] Care Team Providers Care Livestock Speculator Name Role Phone Snow Velasquez MD Primary Care Provider [phone] Encounter Details Date Type Department Care Team Description 03/12/2017 Release of Information Medical Records [address] [place] [address] Abstract, Provider Social History Tobacco Use Types [...] on filedocumented in this encounter Care Teams Livestock Speculator Relationship Specialty Start Date End Date Snow Velasquez MD [address] [place] [address] [phone] PCP - General Internal Medicine 03/10/17 documented as of this encounter
--- OUTSIDE RECORDS SUMMARY | 2025-01-16 10:20 | XMS_ITS | Encounter Summary ---
Author Organization [email or web address] Address [address] [place] [address] Care Team Providers Care Solar Project Coordination Specialist Name Role Phone Snow Velasquez MD Primary Care Provider [phone] Encounter Details Date Type Department Care Team Description 02/10/2023 Wagon Washer Report Medical Records [address] [place] [address] Valdemar Reynoso PA-C Social History Tobacco Use [...] on filedocumented in this encounter Care Teams Solar Project Coordination Specialist Relationship Specialty Start Date End Date Snow Velasquez MD [address] [place] [address] [phone] PCP - General Internal Medicine 03/10/17 documented as of this encounter
--- OUTSIDE RECORDS SUMMARY | 2025-01-16 10:21 | XMS_ITS | Clinical Summary ---
Author Organization [facility] Address [address] [place] [address] Care Team Providers Care Justice Professor Name Role Phone Snow Velasquez MD Primary Care Provider [phone] Allergies Active Allergy Reactions Criticality Noted Date Comments Other 03/08/2017 Seasonal allergies Medications acetaminophen (TYLENOL) 325 mg tablet TAKE 2 TABLETS BY MOUTH 3 TIMES A DAY DAILY NEEDED FOR OTHER PAIN 4 Active loratadine (CLARITIN) 10 mg tablet Take 1 Tablet by mouth daily. 4 Active cyclobenzaprine (FLEXERIL) 10 mg tablet 4 Active cholecalciferol (VITAMIN D-3) 50 mcg (2,000 unit) tablet Take 1 tablet (2,000 Units total) by mouth 1 (one) time each day. 3 Active fluticasone propionate (FLONASE) 50 mcg/actuation nasal spray 2 Sprays by Nasal route daily. 3 Active terbutaline (BRETHINE) 5 mg tablet TAKE ONE TABLET BY MOUTH AT ONSET OF PRIAPISM. MAY REPEAT AFTER 8 HOURS IF PRIAPISM STILL PRESENT 3 Active oxyCODONE-aceta minophen (PERCOCET) 5-325 mg per tablet TAKE 1 TABLET BY MOUTH FOUR TIMES A DAY FOR 7 DAYS 3 Active lurasidone (Latuda) 20 mg tablet Take 1 Tablet by mouth daily. 2 Active busPIRone (BUSPAR) 30 mg tablet TK 1 T PO TID 0 Active zolpidem (AMBIEN) 10 mg tablet Take 10 mg by mouth at bedtime. Active clonazePAM (KlonoPIN) 0.5 mg tablet Take 1 Tab by mouth 2 times daily as needed for Anxiety. 9 Active lidocaine (XYLOCAINE) 5 % ointment Apply 1 Dose topically as needed for Other (pain) for up to 360 days. 4 01/05/20 25 Active Problems Problem Noted Date Diagnosed Date [...] Recorded Sex Assigned at Not on file Legal Sex Male 8:58 AM EST Gender Identity Not on file Sexual Orientation [...] of 3 - 19+ 3-dose series) 1996 Pneumococcal Vaccine: Pediatrics (0 to 5 Years) and At-Risk Patients (6 to 64 Years) (1 of 2 - PCV) 1996 Colorectal Cancer Screening: Colonoscopy 09/26/2022 Depression Screening 09/26/2022 Social Influencers of Health Screening 09/26/2022 COVID-19 Vaccine ( - 2023-2 5 season) 2024 03/08/2021, 02/18/2021 Influenza Vaccine (Season Ended) 2025 DTaP,Tdap,and Td Vaccines (2 - Td or [...] patient's age to complete this topic Meningococcal B Vacine Aged Out No lo nger eligible based on patient's age to complete [...] Maintenance Results * (ABNORMAL) Lipid panel (01/10/2024) Pathologist [facility] LDL/HDL Ratio 4 0 - 4 Triglycerides 136 0 - 150 mg/dL Cholesterol 256(A) 0 - 200 mg/dL HDL 71 >=40 mg/dL LDL Cholesterol 158(A) 0 - 100 mg/dL Blood Venous blood specimen / Unknown Historical Provider LAB BLOOD ORDERABLES Ashli l Result * Hepatitis C Screening (02/04/2022) Pathologist [facility] Hepatitis C Screening abstracted Historical Provider HEALTH MAINTENANCE Final Result * HIV Screening (09/28/2019) Pathologist [facility] HIV Screening abstrated Historical Provider HEALTH MAINTENANCE Final Result from Last 3 Months or Most Recently Relevant to Health Maintenance Care Teams Justice Professor Relationship Specialty Start Date End Date Snow Velasquez MD [address] [place] [address] PCP - General Internal Medicine 03/10/17
--- OUTSIDE RECORDS SUMMARY | 2025-01-16 10:21 | XMS_ITS | Encounter Summary ---
Author Organization [facility] Address [address] [place] [address] Care Team Providers Care Realty Specialist Name Role Phone Snow Velasquez MD Primary Care Provider [phone] Encounter Details Date Type Department Care Team Description 03/29/2020 [facility] Medical Records [address] [place] [address] Abstract, Provider Social History Tobacco Use Types [...] on filedocumented in this encounter Care Teams Realty Specialist Relationship Specialty Start Date End Date Snow Velasquez MD [address] [place] [address] [phone] PCP - General Internal Medicine 03/10/17 documented as of this encounter
[2025-01-16 11:10] LABS: Alanine Aminotransferase 44 U/L (0-40); Albumin Level 4.2 g/dL (3.5-5.0); Alkaline Phosphatase 102 U/L (39-117); Aspartate Amino Transferase 27 U/L (5-37); Bilirubin Direct 0.1 mg/dL (0.0-0.5); Bilirubin Total 0.3 mg/dL (0.0-1.0); Cholesterol 240 mg/dL (<200); HDL Cholesterol 47 mg/dL (>40); LDL Cholesterol Calculated 166 mg/dL (<100); Triglycerides 136 mg/dL (<150)
== END 2025-01-16 09:17 | disposition home or self-care (01) ==
LOC: HO.LAB 09:16
DX: R79.89 Other specified abnormal findings of blood chemistry (principal); E78.00 Pure hypercholesterolemia, unspecified
CPT/HCPCS: 36415; 80061; 80076

== ENCOUNTER → 2025-01-18 08:02 | Outpatient (REF) | payer OTHER, SELFPAY ==
--- NOTE | 2025-01-18 08:06 | CA_ITS ---
Acquisition Time: 2025-01-18 08:20:08 Total Exercise Time: 00:02:00 Test Indications: Dyspnea Medications: SEE H&P Protocol: LEXISCAN Max HR: 126 BPM 72% of Pred: 173 BPM Max BP: 130/88 mmHG Max Work Load: 1.0 METS Pharmacological stress test with Lexiscan while pt moves his legs in chair, with reports of 9/20 chest pressure, SOB and body ache, without any arrythmias, with normotensive response to injection. Nondiagnostic EKG for ischemia. In recovery, pt treated with IVP Aminophylline 75 mg to reverse Lexiscan after which pt slowly feeling back to baseline. Nuclear images pending. Test reviewed with Dr. Walker. Referred By: Lynn Sarkar Electronically Signed By: Juan Carlos Bejarano
--- OUTSIDE RECORDS SUMMARY | 2025-01-18 08:07 | XMS_ITS | Clinical Summary ---
Author Organization [facility] Address [address] [place] [address] Care Team Providers Care Mixer Pigment Name Role Phone Snow Velasquez MD Primary Care Provider [phone] Allergies No known active allergies Medications Medication [...] age to complete this topic Care Teams Mixer Pigment Relationship Specialty Start Date End Date Snow Velasquez MD PCP - General Internal Medicine 11/24/23
--- OUTSIDE RECORDS SUMMARY | 2025-01-18 08:07 | XMS_ITS | Clinical Summary ---
Author Organization [facility] it[facility] Address [address] [place] [address] Care Team Providers Care Drafter Geological Name Role Phone Snow Velasquez MD Primary Care Provider [phone] Allergies Active Allergy Reactions Criticality Noted Date [...] * (ABNORMAL) Lipid panel (01/10/2024) Pathologist [facility] LDL/HDL Ratio 4 0 - 4 Triglycerides 136 0 - 150 mg/dL Cholesterol 256(A) 0 - 200 mg/dL HDL 71 >=40 mg/dL LDL Cholesterol 158(A) 0 - 100 mg/dL Blood Venous blood specimen / Unknown Historical Provider LAB BLOOD ORDERABLES Ashli l Result * Hepatitis C Screening (02/04/2022) Pathologist [facility] Hepatitis C Screening abstracted Historical Provider HEALTH MAINTENANCE Final Result * HIV Screening (09/28/2019) Pathologist [facility] HIV Screening abstrated Historical Provider HEALTH MAINTENANCE Final Result from Last 3 Months or Most Recently Relevant to Health Maintenance Care Teams Drafter Geological Relationship Specialty Start Date End Date Snow Velasquez MD [address] [place] [phone] PCP - General Internal Medicine 03/10/17
== END ==
LOC: HO.CARD 08:02
DX: R06.09 Other forms of dyspnea (principal)
CPT/HCPCS: 78452; 93017; A9500; J0280; J2785

== ENCOUNTER → 2025-01-18 08:06 | Outpatient (BNV) | payer OTHER, SELFPAY | DX: R06.02 Shortness of breath (principal); R07.9 Chest pain, unspecified | CPT/HCPCS: 78452; 93016; 93018 ==

== ENCOUNTER 2025-01-22 10:51 | Outpatient (AMB) | payer OTHER, SELFPAY ==
--- NOTE | 2025-01-22 10:59 | MHC.PC.OV ---
Vital Signs 01/22/25 11:01 Height 5 ft 6 in Weight 175 lb 2 oz BMI 28.3 BP 100/68 Blood Pressure Location Lt brachial Position Sitting Pulse 79 Pulse Source Pulse Oximeter Temp 96.9 F Temp Source Temporal Artery Scan Pulse Oximetry (%) 97 Oxygen Delivery Method Room Air Intake Visit Reasons: 3 Month F/U Intake Note: Patient is here to follow up on MARQUIS, Bipolar, GERD. Rag Cutting Machine Operator Required: No Arboriculture Teacher: Not Required per policy Accompanied by: Self / Same As Patient Allergies No Known Allergies [No Known Allergies*] Allergy (Verified 01/22/25 11:06) Tobacco use date assessed: 01/22/25 Dental Screening Dental Screen Date: 10/23/24 HPI 3 Month F/U HPI Details 49-year-old male with past medical history of anxiety, fatty liver disease, bipolar disorder, PTSD, hypercholesterolemia, GERD, fibromyalgia, obstructive sleep apnea and vitamin-D deficiency last seen 10/2024 coming in for follow up.? Patient recently completed stress test 01/18/2025 myocardial perfusion imaging study shows normal myocardial perfusion, normal contractility and no evidence of ischemic dilation and EKG nondiagnostic for ischemia.?Patient was seen by Urology to 01/2025 continue on GnRH. Presenting with management of hyperlipidemia, evaluation of shortness of breath, and follow-up on chronic pain and psychiatric care. Hyperlipidemia has been persistent despite dietary efforts, with cholesterol readings of 160 mg/dL previously and currently at 166 mg/dL. The patient reports exertional dyspnea, not due to cardiac or pulmonary issues, likely due to deconditioning as physical activity has been limited. Chronic pain due to fibromyalgia is poorly managed with current pain medications, impacting daily activities. The patient notes generalized anxiety disorder and depression, with current medication not adequately controlling symptoms. [facility] Family History Father Pancreatic cancer Mother Ovarian cancer Maternal Grandfather Stomach cancer Social History Housing: Apartment Alcohol intake: current Alcohol type: beer Patient Tobacco Use Status: Current someday Tobacco user Tobacco use type: Cigar e-Cigarette/Vaping Use: Never Used Second Hand Smoke Exposure: Yes Substance Use Type: Marijuana service: No Current occupational status: unemployed Cognitive needs: Yes (Cane) Hearing needs: No Vision needs: Yes (Glasses) Questionnaire Thrive Questionnaire Date Thrive assessed: 10/23/24 LUZ MARIA-7 AMB Questionnaire LUZ MARIA-7 Date LUZ MARIA - 7 assessed: 10/23/24 Source: Developed by Drs. Dallin Bustamante, Alyssia Blanco, Martin Rodrigez and colleagues, with an educational jeremiah from [employer]. Review of Systems Const Reports body aches (chronic), Denies chills, Denies fever(s), Denies headache(s) and Denies poor appetite Eyes Reports no additional complaints ENT Denies dizziness and Denies headache(s) Card Denies chest pain, Denies lightheadedness, Denies dyspnea and Reports dyspnea on exertion Resp Denies cough, Denies dyspnea and Reports dyspnea on exertion GI Denies abdominal pain, Denies constipation, Denies diarrhea, Denies nausea and Denies vomiting Reports no additional complaints Musc Reports no additional complaints and Denies abnormal gait Skin/Breast Reports system reviewed and no additional complaints, except as documented Neuro Denies abnormal gait, Denies dizziness and Denies headache(s) Psych Reports no additional complaints Physical exam (Primary Care) Vital Signs: Last Vital Signs Temp 96.9 F 01/22/25 11:01 Pulse 79 01/22/25 11:01 BP 100/68 01/22/25 11:01 Pulse Ox 97 01/22/25 11:01 Oxygen Delivery Method Room Air 01/22/25 11:01 BMI result Body Mass Index 28.3 Tobacco/Smoking Status: Tobacco use Status Tobacco use date assessed 01/22/25 01/22/25 11:08 Patient Tobacco Use Status Current someday Tobacco 01/22/25 11:08 Tobacco use type Cigar 01/22/25 11:08 e-Cigarette/Vaping Use Never Used 01/22/25 11:08 Thrive Assessment: Date of Thrive Assessment Date Thrive assessed 10/23/24 01/22/25 11:08 Const General: cooperative, healthy appearing, comfortable and no acute distress Orientation/consciousness: patient oriented x3 HENMT Head: Yes normocephalic Ears: hearing grossly normal bilaterally General nose exam: Normal external nose present Eyes General: appearance normal, both eyes and all related structures Conjunctivae: conjunctivae normal Neck Neck: Yes full ROM and Yes no lymphadenopathy Resp Effort & Inspection: normal respiratory effort Auscultation: clear to auscultation bilaterally, no crackles, no rales, no rhonchi and no wheezes Cardio Rate: regular rate Rhythm: regular rhythm Skin General skin exam: no rashes or lesions noted Neuro General: patient oriented x3 Gait exam (Neuro): Normal gait present Extrem General: Yes normal to inspection, Yes full ROM and No edema Psych Affect: normal affect Attitude: cooperative Insight: Good insight present (Psych) Judgement: Good judgement present (Psych) Coding Level of Care Code Est Pt Level 4 (26310) Diagnoses Dyspnea on exertion R06.09 Elevated LFTs R79.89 GERD (gastroesophageal reflux disease) K21.9 Hypercholesterolemia E78.00 Stuttering priapism N48.39 Fibromyalgia M79.7 Anxiety F41.9 Atypical nevi D22.9 Assessment & Plan Assessment & Plan (1) Dyspnea on exertion: Code(s): R06.09 - Other forms of dyspnea Category: Medical Plan: PFTs were negative patient could not tolerate exercise stress test and nuclear stress test was completed Showing normal myocardial perfusion, normal contractility and no evidence of ischemic dilation. At this point the dyspnea is likely related to deconditioning advised to exercise as tolerated. (2) Elevated LFTs: Code(s): R79.89 - Other specified abnormal findings of blood chemistry Category: Medical Plan: LFTs improved on blood work. Patient previously diagnosed with fatty liver disease through ultrasound at last PCP. Healthy diet and regular exercise is encouraged. (3) GERD (gastroesophageal reflux disease): Code(s): K21.9 - Gastro-esophageal reflux disease without esophagitis Category: Medical Plan: Avoid trigger foods such as citrus, tomato products, soda, caffeine, spicy foods and other foods that may be irritating to your stomach. Avoid laying flat 3-4 hours after eating and elevate the head of the bed 30 degrees to prevent acid from moving into the esophagus. Restarted on omeprazole (4) Hypercholesterolemia: Code(s): E78.00 - Pure hypercholesterolemia, unspecified Category: Medical Plan: Avoid foods that are high in cholesterol such as red meat, fried foods, eggs and baked goods. Triglyceride goal of less than 150 and LDL goal of less than 130. Not currently on medical management ASCVD risk calculated 2.0% for the next 10 years recommending dietary versus medical management. Discussed with patient at length risk of elevated cholesterol plan to work on dietary and lifestyle modification LDL worsening from 160-166 patient is declining medical management at this time. He understands the risks of elevated cholesterol. (5) Stuttering priapism: Comment: Failed finasteride, ketoconazole Code(s): N48.39 - Other priapism Category: Medical Plan: Continue to follow with Urology, has appointment in February to discuss GnRH injection. (6) Fibromyalgia: Code(s): M79.7 - Fibromyalgia Category: Medical Plan: Patient complaining of chronic pain does see pain management through [facility]. Ordered for cane for pain with prolonged walking. (7) Anxiety: Comment: [facility] weekly Code(s): F41.9 - Anxiety disorder, unspecified Category: Medical Plan: on Buspar, Klonipin, Lurasidone and currently following with [facility] weekly. (8) Atypical nevi: Code(s): D22.9 - Melanocytic nevi, unspecified Category: Medical Plan: Referral placed to dermatology for further evaluation. Plan The plan involves ongoing monitoring of hyperlipidemia with emphasis on lifestyle modification and deferred pharmacologic intervention. Exertional dyspnea is addressed by progressive physical activity compatible with the patient's baseline functional status. Fibromyalgia and chronic pain management necessitate continued evaluation, considering existing strategies' limited efficacy. Psychiatric symptoms, including anxiety and depression, will be assessed further, focusing on medication effectiveness. Mental health support is to proceed with regular therapy sessions, tailoring interventions toward reducing anxiety and accommodating the behavioral influence of previous incarceration. This note was constructed using voice recognition software. While every effort has been made to ensure accuracy and web assistant, still areas may have been included sometimes these areas may affect the content or meeting of the given symptoms. Total time spent caring for the patient today was 20 minutes. This includes time spent before the visit reviewing the chart, time spent during the visit, and time spent after the visit and documentation. Patient was informed and verbally consented to the use of an ambient scribe for clinic note documentation during this visit. Orders: Orders Lipid Panel 3 Months E78.00 - Pure hypercholesterolemia, unspecified Referrals Dermatology Referral D22.9 - Melanocytic nevi, unspecified Medications: Refilled cyclobenzaprine 10 mg PO TID PRN 14 tabs 0RF muscle spasm
[2025-01-22 11:01] VITALS: BP 100/68; PULSE 79; TEMP 36.1; O2SAT 97; BMI 28.3
--- OUTSIDE RECORDS SUMMARY | 2025-01-22 12:58 | XMS_ITS | Encounter Summary ---
Author Organization [employer] [facility] Address [address] [place] [address] Care Team Providers Care Veterinarian Helper Name Role Phone Snow Velasquez MD Primary Care Provider [phone] Encounter Details Date Type Department Care Team Description 11/09/2019 [facility] Medical Records [address] [place] [address] Abstract, Provider Social History Tobacco Use Types [...] on filedocumented in this encounter Care Teams Veterinarian Helper Relationship Specialty Start Date End Date Snow Velasquez MD [address] [place] [address] [phone] PCP - General Internal Medicine 03/10/17 documented as of this encounter
--- OUTSIDE RECORDS SUMMARY | 2025-01-22 12:58 | XMS_ITS | Encounter Summary ---
[facility] Organization [facility] Address [address] [place] [address] Care Team Providers Care Carpenter Name Role Phone Snow Velasquez MD Primary Care Provider [phone] Reason for Visit * Reason Comments E-prescribe Rx Request Encounter Details Date Type Department Care Team Description 09/06/2020 Refill Adult Medicine [address] [phone] Snow Velasquez MD [address] [place] [address] [phone] E-prescribe Rx Request Social History Tobacco Use [...] N/A Patients current insurance carrier is: Payor: [employer] FFS / Plan: [employer] ALLIANCE / Product Type: MEDICAID RISK documented in this encounter Plan of Treatment Not on file documented as of this encounter Visit Diagnoses Not on filedocumented in this encounter Care Teams Carpenter Relationship Specialty Start Date End Date Snow Velasquez MD [address] [place] [address] PCP - General Internal Medicine 03/10/17 documented as of this encounter
--- OUTSIDE RECORDS SUMMARY | 2025-01-22 12:58 | XMS_ITS | Encounter Summary ---
[facility] Organization [facility] Address [address] [place] [address] Care Team Providers Care Linen Supervisor Name Role Phone Snow Velasquez MD Primary Care Provider [phone] Encounter Details Date Type Department Care Team Description 08/09/2020 Pt. Non Urgent Medic al Question Medicine/Pediatrics - [address] [phone] Christin Hung NP Social History Tobacco Use [...] on filedocumented in this encounter Care Teams Linen Supervisor Relationship Specialty Start Date End Date Snow Velasquez MD [address] [place] [phone] PCP - General Internal Medicine 03/10/17 documented as of this encounter
--- OUTSIDE RECORDS SUMMARY | 2025-01-22 12:58 | XMS_ITS | Encounter Summary ---
Author Organization [employer] [facility] Address [address] [place] [address] Care Team Providers Care Philosophy Faculty Name Role Phone Snow Velasquez MD Primary Care Provider [phone] Encounter Details Date Type Department Care Team Description 03/12/2017 Release of Information Medical Records [address] [place] [id number] Abstract, Provider Social History Tobacco Use Types [...] on filedocumented in this encounter Care Teams Philosophy Faculty Relationship Specialty Start Date End Date Snow Velasquez MD [address] [place] [address] [phone] PCP - General Internal Medicine 03/10/17 documented as of this encounter
--- OUTSIDE RECORDS SUMMARY | 2025-01-22 12:58 | XMS_ITS | Encounter Summary ---
Author Organization [facility] Address [address] [place] [address] Care Team Providers Care Inside Sales Trainer Name Role Phone Snow Velasquez MD Primary Care Provider [phone] Encounter Details Date Type Department Care Team Description 05/24/2023 Functional Architect Report Medical Records [address] [place] [address] Tru Oates DO Social History Tobacco Use [...] on filedocumented in this encounter Care Teams Inside Sales Trainer Relationship Specialty Start Date End Date Snow Velasquez MD [address] [place] [address] [phone] PCP - General Internal Medicine 03/10/17 documented as of this encounter
--- OUTSIDE RECORDS SUMMARY | 2025-01-22 12:58 | XMS_ITS | Encounter Summary ---
Author Organization [facility] Address [address] [place] [address] Care Team Providers Care Railway Signal Electrician Name Role Phone Snow Velasquez MD Primary Care Provider [phone] Encounter Details Date Type Department Care Team Description 06/29/2022 Hospital Medical Records [address] [place] [phone] Social History Tobacco Use Types Packs/Day Years [...] on filedocumented in this encounter Care Teams Railway Signal Electrician Relationship Specialty Start Date End Date Snow Velasquez MD [address] [place] [address] PCP - General Internal Medicine 03/10/17 documented as of this encounter
--- OUTSIDE RECORDS SUMMARY | 2025-01-22 12:58 | XMS_ITS | Encounter Summary ---
[facility] Address [address] [place] [address] Care Team Providers Care Client Program Manager Name Role Phone Snow Velasquez MD Primary Care Provider [phone] Reason for Visit * Reason Comments E-prescribe Rx Request Encounter Details Date Type Department Care Team Description 10/24/2021 Refill Physiatry - [place] [address] [place] [address] [phone] Valdemar Reynoso PA-C E-prescribe Rx Request Social [...] have Coronavirus / COVID-19? No / Unsure 09/24/2021 12:58 PM EST documented as of this encounter Miscellaneous Notes * Telephone Encounter - Areli Weeks - 01/21/2022 1:30 PM EDT Provider and department are no longer at our facility documented in this encounter Plan of Treatment Not on file documented as of this encounter Visit Diagnoses Not on filedocumented in this encounter Care Teams Client Program Manager Relationship Specialty Start Date End Date Snow Velasquez MD [address] [place] [address] PCP - General Internal Medicine 03/10/17 documented as of this encounter
--- OUTSIDE RECORDS SUMMARY | 2025-01-22 12:58 | XMS_ITS | Encounter Summary ---
Author Organization [employer] [facility] Address [address] [place] [address] Care Team Providers Care Graphic Art Designer Name Role Phone Snow Velasquez MD Primary Care Provider [phone] Encounter Details Date Type Department Care Team Description 12/15/2023 Acute Specialist Report Medical Records [address] [place] [address] Valdemar Reynoso PA-C Social History Tobacco Use [...] on filedocumented in this encounter Care Teams Graphic Art Designer Relationship Specialty Start Date End Date Snow Velasquez MD [address] [place] [address] [phone] PCP - General Internal Medicine 03/10/17 documented as of this encounter
--- OUTSIDE RECORDS SUMMARY | 2025-01-22 12:58 | XMS_ITS | Encounter Summary ---
Author Organization [employer] [facility] Address [address] [place] [address] Care Team Providers Care Mechanical Piping Designer Name Role Phone Snow Velasquez MD Primary Care Provider [phone] Encounter Details Date Type Department Care Team Description 06/27/2022 Hospital Medical Records [address] [place] [address] Jose Salas Social History Tobacco Use Types [...] on filedocumented in this encounter Care Teams Mechanical Piping Designer Relationship Specialty Start Date End Date Snow Velasquez MD [address] [place] [address] PCP - General Internal Medicine 03/10/17 documented as of this encounter
--- OUTSIDE RECORDS SUMMARY | 2025-01-22 12:58 | XMS_ITS | Encounter Summary ---
Author Organization [facility] [facility] Address [address] [place] [address] Care Team Providers Care Size Worker Name Role Phone Snow Velasquez MD Primary Care Provider [phone] Reason for Visit * Reason Comments E-prescribe Rx Request Encounter Details Date Type Department Care Team Description 07/30/2022 Refill Adult Medicine [address] [address] Roxi Mathew PA-C [address] [place] [address] E-prescribe Rx Request Social History Tobacco Use [...] encounter Miscellaneous Notes * Telephone Encounter - Joan Ugarte M.A. - 08/03/2022 2:30 PM EDT Lab Results Component Value Date NA 140 01/26/2022 K 3.9 01/26/2022 CO2 28 01/26/2022 CL 108 01/26/2022 BUN 14 01/26/2022 CREAT 1.08 01/26/2022 GLU 94 01/26/2022 CA 9.7 01/26/2022 GFR > 60 01/26/2022 VITOR 07/20/22 - PCP NOV 09/21/22 - Nhung Dia * Telephone Encounter - Beth Crystal - 08/03/2022 9:58 AM EDT Patient would like script to be: E-PRESCRIBED/FAXED TO PHARMACY WHEN WAS THE PATIENT'S LAST APPOINTMENT IN ADULT MEDICINE? 07/20/22 WHEN WAS THE LAST TIME THE PATIENT SAW THEIR PCP? Same as above Does patient have an upcoming appointment? Yes 09/21/22 (THE MEDICATION REQUESTED IS ON THE MED [...] N/A Patients current insurance carrier is: Payor: [facility] FFS / Plan: [facility] / Product Type: MEDICAID RISK documented in this encounter Plan of Treatment Not on file documented as of this encounter Visit Diagnoses Not on filedocumented in this encounter Care Teams Size Worker Relationship Specialty Start Date End Date Snow Velasquez MD [address] [place] [phone] PCP - General Internal Medicine 03/10/17 documented as of this encounter
--- OUTSIDE RECORDS SUMMARY | 2025-01-22 12:58 | XMS_ITS | Encounter Summary ---
Author Organization [facility] Address [address] [place] [address] Care Team Providers Care Assistant Golf Course Superintendent Name Role Phone Snow Velasquez MD Primary Care Provider Encounter Details Date Type Department Care Team Description 02/10/2023 Human Resource Intern Report Medical Records [address] [place] [phone] Valdemar Reynoso PA-C Social History Tobacco Use [...] filedocumented in this encounter Care Teams Assistant Golf Course Superintendent Relationship Specialty Start Date End Date Snow Velasquez MD [address] [place] [address] [phone] PCP - General Internal Medicine 03/10/17 documented as of this encounter
--- OUTSIDE RECORDS SUMMARY | 2025-01-22 12:58 | XMS_ITS | Encounter Summary ---
Author Organization [employer] [facility] Address [address] [place] [address] Care Team Providers Care Laborer Shellfish Processing Name Role Phone Snow Velasquez MD Primary Care Provider [phone] Encounter Details Date Type Department Care Team Description 07/19/2023 High School Sports Coach Report Medical Records [address] [place] [phone] Valdemar Reynoso PA-C Social History Tobacco Use [...] on filedocumented in this encounter Care Teams Laborer Shellfish Processing Relationship Specialty Start Date End Date Snow Velasquez MD [address] [place] [address] [phone] PCP - General Internal Medicine 03/10/17 documented as of this encounter
--- OUTSIDE RECORDS SUMMARY | 2025-01-22 12:58 | XMS_ITS | Encounter Summary ---
Author Organization [employer] [facility] Address [address] [place] [address] Care Team Providers Care Truck Terminal Manager Name Role Phone Snow Velasquez MD Primary Care Provider [phone] Encounter Details Date Type Department Care Team Description 10/19/2023 Welt Rougher Report Medical Records [address] [place] [address] Valdemar Reynoso PA-C Social History Tobacco Use [...] on filedocumented in this encounter Care Teams Truck Terminal Manager Relationship Specialty Start Date End Date Snow Velasquez MD [address] [place] [address] [phone] PCP - General Internal Medicine 03/10/17 documented as of this encounter
--- OUTSIDE RECORDS SUMMARY | 2025-01-22 12:58 | XMS_ITS | Clinical Summary ---
Author Organization [facility] Address [address] [place] [address] Care Team Providers Care Double Reamer Operator Name Role Phone Snow Velasquez MD Primary Care Provider [phone] Allergies No known active allergies Medications Medication [...] age to complete this topic Care Teams Double Reamer Operator Relationship Specialty Start Date End Date Snow Velasquez MD PCP - General Internal Medicine 11/24/23
--- OUTSIDE RECORDS SUMMARY | 2025-01-22 12:58 | XMS_ITS | Encounter Summary ---
Author Organization [facility] Address [address] [place] [address] Care Team Providers Care Emergency Communications Operator Name Role Phone Villa Renee MD Primary Care Provider Miroslava Snow Monahan MD Primary Care Provider [phone] Encounter Details Date Type Department Care Team Description 1975 Store Manager Report Medical Records [address] [place] [address] Valdemar Reynoso PA-C Social History Tobacco Use [...] on filedocumented in this encounter Care Teams Emergency Communications Operator Relationship Specialty Start Date End Date Villa Renee MD PCP - General Internal Medicine 03/04/17 7 Snow Velasquez MD [address] [place] [address] [phone] PCP - General Internal Medicine 03/10/17 documented as of this encounter
--- OUTSIDE RECORDS SUMMARY | 2025-01-22 12:58 | XMS_ITS | Encounter Summary ---
Author Organization [facility] Address [address] [place] [address] Care Team Providers Care Painter Plate Name Role Phone Snow Velasquez MD Primary Care Provider [phone] Encounter Details Date Type Department Care Team Description 12/24/2022 Entertainment Reporter Report Medical Records [address] [place] [phone] Valdemar Reynoso PA-C Social History Tobacco Use [...] on filedocumented in this encounter Care Teams Painter Plate Relationship Specialty Start Date End Date Snow Velasquez MD [address] [place] [address] [phone] PCP - General Internal Medicine 03/10/17 documented as of this encounter
--- OUTSIDE RECORDS SUMMARY | 2025-01-22 12:58 | XMS_ITS | Encounter Summary ---
Author Organization [facility] Address [address] [place] [address] Care Team Providers Care Warehouse Manager Name Role Phone Snow Velasquez MD Primary Care Provider Encounter Details Date Type Department Care Team Description 10/29/2023 Orders Only Medical Records [address] [place] [phone] Darwin Guan Social History Tobacco Use Types [...] on filedocumented in this encounter Care Teams Warehouse Manager Relationship Specialty Start Date End Date Snow Velasquez MD [address] [place] [phone] PCP - General Internal Medicine 03/10/17 documented as of this encounter
--- OUTSIDE RECORDS SUMMARY | 2025-01-22 12:58 | XMS_ITS | Encounter Summary ---
Author Organization [facility] Address [address] [place] [address] Care Team Providers Care Intermodal Customer Service Name Role Phone Snow Velasquez MD Primary Care Provider [phone] Reason for Visit * Reason Comments E-prescribe Rx Request Encounter Details Date Type Department Care Team Description 03/04/2020 Refill Physiatry - [place] [address] [place] [address] [phone] Valdemar Reynoso PA-C E-prescribe Rx Request Social [...] on filedocumented in this encounter Care Teams Intermodal Customer Service Relationship Specialty Start Date End Date Snow Velasquez MD [address] [place] [address] [phone] PCP - General Internal Medicine 03/10/17 documented as of this encounter
--- OUTSIDE RECORDS SUMMARY | 2025-01-22 12:58 | XMS_ITS | Encounter Summary ---
Author Organization [facility] Address [address] [place] [address] Care Team Providers Care Binding Cutter Name Role Phone Snow Velasquez MD Primary Care Provider [phone] Reason for Visit * Reason Onset Date Comments medication problems 03/03/2023 Encounter Details Date Type Department Care Team Description 03/03/2023 Telephone Adult Medicine [address] [phone] Snow Velasquez MD [address] [place] [address] [phone] medication problems Social History Tobacco Use Types [...] not the caller who is? Faxed from [facility] Is this a NEW medication?: How long has the patient been taking this medication? Who prescribed this medication for the patient? Anil Dia Who is patients PCP?: Snow Velasquez Payor: [employer] [facility] FFS / Plan: [facility] [employer] / Product Type: MEDICAID RISK documented in this encounter Plan of Treatment Not on file documented as of this encounter Visit Diagnoses Not on filedocumented in this encounter Care Teams Binding Cutter Relationship Specialty Start Date End Date Snow Velasquez MD [address] [place] [address] PCP - General Internal Medicine 03/10/17 documented as of this encounter
--- OUTSIDE RECORDS SUMMARY | 2025-01-22 12:58 | XMS_ITS | Encounter Summary ---
Author Organization [facility] Address [address] [place] [address] Care Team Providers Care Exhibit Electrician Name Role Phone Snow Velasquez MD Primary Care Provider [phone] Encounter Details Date Type Department Care Team Description 04/28/2024 Chemical Analytical Sampler Report Medical Records [address] [place] [address] Tru Oates DO Social History Tobacco Use [...] on filedocumented in this encounter Care Teams Exhibit Electrician Relationship Specialty Start Date End Date Snow Velasquez MD [address] [place] [address] [phone] PCP - General Internal Medicine 03/10/17 documented as of this encounter
--- OUTSIDE RECORDS SUMMARY | 2025-01-22 12:58 | XMS_ITS | Encounter Summary ---
Author Organization [facility] Address [address] [place] [address] Care Team Providers Care Industrial Safety And Health Technician Name Role Phone Snow Velasquez MD Primary Care Provider [phone] Reason for Visit * Reason Comments E-prescribe Rx Request Encounter Details Date Type Department Care Team Description 08/04/2019 Refill Gastroenterology - [place] [address] [facility] [address] [place] [address] Eduard Ramirez MD E-prescribe Rx [...] on filedocumented in this encounter Care Teams Industrial Safety And Health Technician Relationship Specialty Start Date End Date Snow Velasquez MD [address] [place] [address] [phone] PCP - General Internal Medicine 03/10/17 documented as of this encounter
--- OUTSIDE RECORDS SUMMARY | 2025-01-22 12:58 | XMS_ITS | Encounter Summary ---
Author Organization [facility] Address [address] [place] [address] Care Team Providers Care Insurance Business Analyst Name Role Phone Snow Velasquez MD Primary Care Provider [phone] Reason for Visit * Reason Onset Date Comments Abnormal Test Results 08/06/2020 Encounter Details Date Type Department Care Team Description 08/06/2020 Telephone Medicine/Pediatrics - [address] [phone] Snow Velasquez MD [address] [place] [address] [phone] Abnormal Test Results Social History Tobacco Use [...] - 08/06/2020 9:06 AM EDT Betina from [employer] calling in Positive COVID for Patient. documented in this encounter Plan of Treatment Not on file documented as of this encounter Visit Diagnoses Not on filedocumented in this encounter Care Teams Insurance Business Analyst Relationship Specialty Start Date End Date Snow Velasquez MD [address] [place] [phone] PCP - General Internal Medicine 03/10/17 documented as of this encounter
--- OUTSIDE RECORDS SUMMARY | 2025-01-22 12:58 | XMS_ITS | Clinical Summary ---
Author Organization [facility] Address [address] [place] [address] Care Team Providers Care Facepiece Line Supervisor Name Role Phone Snow Velasquez MD Primary Care Provider [phone] Allergies Active Allergy Reactions Severity Noted Date Comments Seasonal Allergies 03/08/2017 Medications Medication Sig Dispensed Refills Start Date End Date Status clonazepam (KLONOPIN) 0.5 MG tablet Take 1 Tab by mouth 2 times daily as needed for Anxiety. 0 11/12/2018 Active Zolpidem Tartrate 10 MG Tab Take 10 mg by mouth at bedtime. 0 Active busPIRone (BUSPAR) 30 MG tablet TK 1 T PO TID 0 07/23/2020 Active Latuda 20 MG Tab Take 1 Tablet by mouth daily. 0 05/03/2022 Active oxycodone-acetamino phen (PERCOCET) 5-325 MG per tablet TAKE 1 TABLET BY MOUTH FOUR TIMES A DAY FOR 7 DAYS 0 05/24/2023 Active terbutaline (BRETHINE) 5 MG tablet TAKE ONE TABLET BY MOUTH AT ONSET OF PRIAPISM. MAY REPEAT AFTER 8 HOURS IF PRIAPISM STILL PRESENT 0 07/07/2023 Active Cholecalciferol (Vitamin D) 50 MCG (1999 UT) Tab Take 1 Tablet by mouth daily. 90 Tablet 4 08/31/2023 Active fluticasone 50 MCG/ACT nasal spray 2 Sprays by Nasal route daily. 48 mL 1 08/31/2023 Active cyclobenzaprine (FLEXERIL) 10 MG tablet 0 10/19/2023 Active loratadine (CLARITIN) 10 MG tablet Take 1 Tablet by mouth daily. 90 Tablet 1 01/10/2024 Active lidocaine (XYLOCAINE) 5 % ointment Apply 1 Dose topically as needed for Other (pain) for up to 360 days. 35.44 g 0 01/10/2024 Active omeprazole (PRILOSEC) 20 MG capsule Take 1 Capsule by mouth daily for 180 days. 90 Capsule 1 01/13/2024 Active acetaminophen (TYLENOL) 325 MG tablet TAKE 2 TABLETS BY MOUTH 3 TIMES A DAY DAILY NEEDED FOR OTHER PAIN 60 Tablet 1 02/04/2024 Active Active Problems Problem Noted Date Priapism 04/21/2023 Fatty liver 03/02/2022 Gallbladder polyp 03/02/2022 Overview: 2 x 3 mm, follow up 1 year Mixed hyperlipidemia 01/28/2022 Elevated LFTs 01/28/2022 Thoracic outlet syndrome 03/18/2021 COVID-19 virus infection 08/06/2020 Fibromyalgia 11/06/2019 Vitamin D deficiency 09/28/2019 Antral gastritis 01/26/2019 Overview: Bx showed a single non-necrotizing microgranuloma History of incarceration 01/26/2019 Overview: For 13 yrs; released 10/09/2016. Heartburn 12/14/2018 Hypercholesteremia 08/04/2017 Right shoulder tendinitis 05/24/2017 Myalgia 05/24/2017 Cervicalgia 05/24/2017 Recurrent major depressive disorder 02/16 Anxiety 03/08/2017 PTSD (post-traumatic stress disorder) Immunizations Name Administration Dates Next Due COVID-19 (Pfizer) 03/08/2021,02/18/2021 COVID-19 (Pfizer) Pt Reported 03/08/2021, 021 Tdap 03/01/2016 Family History Medical History Relation Name Comments HEART DISEASE Father PANCREATIC CA Father Cancer of the Stomach Maternal Grandfather Cervical Cancer Mother CHF Paternal Grandfather DIABETIC Paternal Grandfather pancreas problem Paternal Grandfather Alzheimers Disease Paternal Grandmother Arthritis Paternal Grandmother FIBROMYALGIA Sister Relation Name Status Comments Father Maternal Grandfather Mother Paternal Grandfather Paternal Grandmother Sister Social History Tobacco Use Types Packs/Day Years Used Date Smoking Tobacco: Former Cigarettes Q uit: 2003 Smokeless Tobacco: Never Tobacco Cessation:Counseling Given: Not Answered Comments:quit 2003, unsure of exact date Alcohol Use Standard Drinks/Week Comments [...] Pulse 94 01/10/2024 11:27 AM EDT Temperature 36.4 ??C (97.5 ??F) 01/10/2024 11:27 AM E DT Respiratory Rate 16 01/10/2024 11:27 AM EDT Oxygen Saturation 98% 01/10/2024 11:27 AM EDT Inhaled Oxygen Concentration - - Weight 75.1 kg (165 lb 9.6 oz) 01/10/2024 11:27 AM EDT Height 168.9 cm (5' 6.5 ) 10/20/2023 9:07 AM EST Body Mass Index 26.33 10/20/2023 9:07 AM EST Plan of Treatment Health Maintenance Due Date Last Done Comments Covid-19 Vaccine (2022-2 4 season) 2024 03/08/2021, 03/08/2021, 02/18/2021, Additional history exists BMI CHECK/ADVISE 10/18/2024 01/10/2024, 12/2023, 08/30/2023, Additional history exists DEPRESSION SCREENING/FOLLOWUP 10/18/2024, 01/19/2023, 01/26/2022, Additional history exists SOCIAL NEEDS SCREENING 10/18/2024 (Completed), 10/29/2020, 08/01/2020, Additional history exists BASELINE HEALTH EXAM 40-64 04/21/202504/21 (Completed), 12/12/2018, 12/06/2018, Additional history exists INFLUENZA (Season Ended) 2025 019 (Refused), 12/06/2018 (Refused) DTAP/TDAP/TD (3 - Td or Tdap) 12/06/2028 (Refused), 03/01/2016 CHOLESTEROL SCREENING 01/09/2029 01/10/2024 , 02/04/2022, 01/26/2022, Additional history exists PNEUMOCOCCAL VACCINE FOR HIG H RISK PATIENTS (#1) 2042 Care Teams Facepiece Line Supervisor Relationship Specialty Start Date End Date Snow Velasquez MD [address] [place] [phone] PCP - General Internal Medicine 03/10/17
--- OUTSIDE RECORDS SUMMARY | 2025-01-22 12:58 | XMS_ITS | Encounter Summary ---
Author Organization [facility] Address [address] [place] [address] Care Team Providers Care Aix Architect Name Role Phone Snow Velasquez MD Primary Care Provider [phone] Reason for Visit * Reason Onset Date Comments refill request 02/25/2020 DIPHENOXYLATE-AT ROP 2.5-0.025 Encounter Details Date Type Department Care Team Description 02/25/2020 Refill Gastroenterology - [place] [address] [facility] [address] [place] [address] Ritesh Escamilla PA-C refill request [...] on filedocumented in this encounter Care Teams Aix Architect Relationship Specialty Start Date End Date Snow Velasquez MD [address] [place] [address] PCP - General Internal Medicine 03/10/17 documented as of this encounter
--- OUTSIDE RECORDS SUMMARY | 2025-01-22 12:58 | XMS_ITS | Encounter Summary ---
Author Organization [facility] Address [address] [place] [address] Care Team Providers Care Winding Rack Operator Name Role Phone Snow Velasquez MD Primary Care Provider [phone] Encounter Details Date Type Department Care Team Description 01/19/2024 Curriculum Specialist Report Medical Records [address] [place] [phone] Valdemar Reynoso PA-C Social History Tobacco Use [...] on filedocumented in this encounter Care Teams Winding Rack Operator Relationship Specialty Start Date End Date Snow Velasquez MD [address] [place] [address] [phone] PCP - General Internal Medicine 03/10/17 documented as of this encounter
--- OUTSIDE RECORDS SUMMARY | 2025-01-22 12:58 | XMS_ITS | Encounter Summary ---
Author Organization [facility] Address [address] [place] [address] Care Team Providers Care Document Imaging Specialist Name Role Phone Snow Velasquez MD Primary Care Provider [phone] Encounter Details Date Type Department Care Team Description 01/10/2019 Hospital Medical Records [address] [place] [phone] Lillian Cruz MD [address] [place] [address] [phone] Social History Tobacco Use Types Packs/Day Years [...] on filedocumented in this encounter Care Teams Document Imaging Specialist Relationship Specialty Start Date End Date Snow Velasquez MD [address] [place] [phone] PCP - General Internal Medicine 03/10/17 documented as of this encounter
--- OUTSIDE RECORDS SUMMARY | 2025-01-22 12:58 | XMS_ITS | Encounter Summary ---
Author Organization [facility] Address [address] [place] [address] Care Team Providers Care Front Load Trash Truck Driver Name Role Phone Snow Velasquez MD Primary Care Provider [phone] Encounter Details Date Type Department Care Team Description 07/29/2023 Agribusiness Professor Report Medical Records [address] [place] [address] Alisa Zepeda PA-C Social History Tobacco Use [...] on filedocumented in this encounter Care Teams Front Load Trash Truck Driver Relationship Specialty Start Date End Date Snow Velasquez MD [address] [place] [phone] PCP - General Internal Medicine 03/10/17 documented as of this encounter
--- OUTSIDE RECORDS SUMMARY | 2025-01-22 12:58 | XMS_ITS | Encounter Summary ---
Author Organization [facility] Address [address] [place] [address] Care Team Providers Care Assistant Professor Of Economics Name Role Phone Snow Velasquez MD Primary Care Provider [phone] Encounter Details Date Type Department Care Team Description 04/06/2023 Transition Program Manager Report Medical Records [address] [place] [address] Valdemar Reynoso PA-C Social History Tobacco Use [...] filedocumented in this encounter Care Teams Assistant Professor Of Economics Relationship Specialty Start Date End Date Snow Velasquez MD [address] [place] [address] [phone] PCP - General Internal Medicine 03/10/17 documented as of this encounter
--- OUTSIDE RECORDS SUMMARY | 2025-01-22 12:58 | XMS_ITS | Encounter Summary ---
Author Organization [facility] Address [address] [place] [address] Care Team Providers Care Airways Control Specialist Name Role Phone Snow Velasquez MD Primary Care Provider [phone] Encounter Details Date Type Department Care Team Description 09/13/2023 Auto Wrecker Report Medical Records [address] [place] [address] Valdemar Reynoso PA-C Social History Tobacco Use [...] on filedocumented in this encounter Care Teams Airways Control Specialist Relationship Specialty Start Date End Date Snow Velasquez MD [address] [place] [phone] PCP - General Internal Medicine 03/10/17 documented as of this encounter
--- OUTSIDE RECORDS SUMMARY | 2025-01-22 12:59 | XMS_ITS | Clinical Summary ---
Author Organization [facility] Address [address] [place] [address] Care Team Providers Care Supervisor Scenic Arts Name Role Phone Snow Velasquez MD Primary Care Provider [phone] Allergies Active Allergy Reactions Criticality Noted Date [...] Results * (ABNORMAL) Lipid panel (01/10/2024) Pathologist [facility] LDL/HDL Ratio 4 0 - 4 Triglycerides 136 0 - 150 mg/dL Cholesterol 256(A) 0 - 200 mg/dL HDL 71 >=40 mg/dL LDL Cholesterol 158(A) 0 - 100 mg/dL Blood Venous blood specimen / Unknown Historical Provider LAB BLOOD ORDERABLES Ashli l Result * Hepatitis C Screening (02/04/2022) Pathologist [facility] Hepatitis C Screening abstracted Historical Provider HEALTH MAINTENANCE Final Result * HIV Screening (09/28/2019) Pathologist [facility] HIV Screening abstrated Historical Provider HEALTH MAINTENANCE Final Result from Last 3 Months or Most Recently Relevant to Health Maintenance Care Teams Supervisor Scenic Arts Relationship Specialty Start Date End Date Snow Velasquez MD [address] [place] [address] PCP - General Internal Medicine 03/10/17
== END 2025-01-22 11:39 | disposition home or self-care (01) ==
LOC: HO.HMCH 10:52
DX: R06.09 Other forms of dyspnea (principal); R79.89 Other specified abnormal findings of blood chemistry; K21.9 Gastro-esophageal reflux disease without esophagitis; E78.00 Pure hypercholesterolemia, unspecified; N48.39 Other priapism; M79.7 Fibromyalgia; F41.9 Anxiety disorder, unspecified; D22.9 Melanocytic nevi, unspecified

== ENCOUNTER → 2025-01-22 10:51 | Outpatient (BNVA) | payer OTHER, SELFPAY | DX: K76.0 Fatty (change of) liver, not elsewhere classified (principal); F31.9 Bipolar disorder, unspecified; F43.10 Post-traumatic stress disorder, unspecified; E78.00 Pure hypercholesterolemia, unspecified; K21.9 Gastro-esophageal reflux disease without esophagitis; M79.7 Fibromyalgia; G47.33 Obstructive sleep apnea (adult) (pediatric); R06.09 Other forms of dyspnea; R79.89 Other specified abnormal findings of blood chemistry; N48.39 Other priapism; F41.9 Anxiety disorder, unspecified; D22.9 Melanocytic nevi, unspecified | CPT/HCPCS: 99212 ==

== ENCOUNTER 2025-02-16 12:59 | Outpatient (AMB) | payer OTHER, SELFPAY ==
--- NOTE | 2025-02-16 13:17 | MHC.OFFVIS ---
Intake Visit Reasons: discuss [facility] injection Intake Note: Patient is present for DISCUSS [facility] INJECTION Urology Medication:NONE Antibiotic Allergy:NONE Blood Thinner:NONE Senior Database Administrator Required: No Allergies No Known Allergies [No Known Allergies*] Allergy (Verified 02/16/25 13:18) HPI Comments Details: Vinnie is a pleasant male. He is seen for the following urologic conditions - stuttering priapism Three-month follow-up from ketoconazole trial Minimal benefit Discussed GnRH Plan dosage Stuttering priapism Prior evaluation with [facility] and [facility] Undergone multiple evaluations for sickle cell anemia and leukemia with Hematology which have all been negative Has recurrent priapism with multiple ER presentations Has difficulty with phenylephrine injections and unable to perform at home Only prior recommendation has been on demand terbutaline Trial finasteride 5 mg daily, ketoconazole induction followed by ketoconazole daily Start ketoconazole 200 mg t.i.d. for 14 days with prednisone 5 mg daily Will then go on daily ketoconazole for six-month Cialis every other day 5 mg Lisbeth FRANCO, Mady TOLLIVER. Prevention of recurrent ischemic priapism with ketoconazole: evolution of a treatment protocol and patient outcomes. J Sex Med. 2014 Oct;11(1):197-204 Using GnRH (gonadotropin-releasing hormone) for stuttering priapism, - medical literature and expert opinion support its use as a potential treatment option for recurrent priapism, often in conjunction with other therapies, due to its ability to lower testosterone levels and potentially reduce episodes of priapism;?however, careful monitoring is necessary due to potential side effects like hypogonadism and the need to consider individual patient factors before initiating treatment ? Ze HR, Alanna O, Robin TJ. Medical management of ischemic stuttering priapism: a contemporary review of the literature. J Androl. 2012 Oct;14(1):156-63. doi: 10.1038/ely.2011.114. Epub 2010Aug 24. PMID: [id number]; PMCID: [id number] PFSH Family History Father Pancreatic cancer Mother Ovarian cancer Maternal Grandfather Stomach cancer Social History Housing: Apartment Alcohol intake: current Alcohol type: beer Patient Tobacco Use Status: Current someday Tobacco user Tobacco use type: Cigar e-Cigarette/Vaping Use: Never Used Second Hand Smoke Exposure: Yes Substance Use Type: Marijuana service: No Current occupational status: unemployed Cognitive needs: Yes (Cane) Hearing needs: No Vision needs: Yes (Glasses) Review of Systems Const Denies chills and Denies fever(s) Card Reports no additional complaints and Denies syncope Resp Denies cough GI Denies abdominal pain and Denies heartburn Reports as per HPI and Denies change in libido Neuro Denies syncope Psych Denies change in libido Endo Denies change in libido Physical Exam Const General: cooperative, healthy appearing, comfortable and no acute distress Orientation/consciousness: patient oriented x3 HEENT Face and sinus: Yes normal facial exam Mouth: moist mucous membranes Neck Neck: Yes normal visual inspection, Yes full ROM and Yes trachea midline Chest Chest palpation & inspection: normal inspection of the chest Resp Effort & Inspection: normal respiratory effort, able to speak in complete sentences and no respiratory distress GI Inspection: Yes normal to inspection Back/Spine/Pelvis Cervical Spine: normal cervical lordosis Thoracic/Lumbar Spine: thoracic and lumbar spine normal to inspection Skin General skin exam: no rashes or lesions noted Neuro General: patient oriented x3, gait normal, tone normal and moves all extremities Extrem General: Yes normal to inspection and Yes capillary refill normal Assessment & Plan Assessment & Plan (1) Stuttering priapism: Comment: Failed finasteride, ketoconazole Code(s): N48.39 - Other priapism Category: Medical Plan Six-month follow-up Patient Instructions: This note is constructed using voice recognition software. While every effort has been made to ensure accuracy prints and drawings curator errors may have been included. Imaging studies, laboratory and physical exam results were discussed and reviewed in detail. No major barriers to patient understanding were identified. An opportunity to ask questions regarding the treatment plan was provided. All questions were answered. The patient expressed understanding and agreement with the above treatment plan. The patient is aware they should contact our office by phone for worsening of their current condition or the appearance of new urologic symptoms. Compliance is encouraged with any medications and followup testing that is ordered. It is a privilege to participate in the urologic care of your patient. If you have any questions or concerns regarding treatment for the above conditions, or other urologic issues, please do not hesitate to contact me. The office telephone contact is [phone]. Sincerely, Dr Kalpesh Mathew MD, [facility] - Urology Compassionate Specialist Care for the Genitourinary System Coding Level of Care Code Est Pt Level 4 (23592) Diagnoses Stuttering priapism N48.39
--- OUTSIDE RECORDS SUMMARY | 2025-02-16 13:20 | XMS_ITS | Clinical Summary ---
Author Organization [facility] ity Address [address] [place] [address] Care Team Providers Care Outdoor Adventure Leader Name Role Phone Snow Velasquez MD Primary Care Provider [phone] Allergies Active Allergy Reactions Criticality Noted Date Comments Other 03/08/2017 Seasonal allergies Medications acetaminophen (TYLENOL) 325 mg tablet TAKE 2 TABLETS BY MOUTH 3 TIMES A DAY DAILY NEEDED FOR OTHER PAIN 02/04/2024 Active loratadine (CLARITIN) 10 mg tablet Take 1 Tablet by mouth daily. 01/10/2024 Active cyclobenzaprine (FLEXERIL) 10 mg tablet 10/19/2023 [...] HOURS IF PRIAPISM STILL PRESENT 07/07/2023 Active oxyCODONE-aceta minophen (PERCOCET) 5-325 mg per tablet TAKE 1 TABLET BY MOUTH FOUR TIMES A DAY FOR 7 DAYS 05/24/2023 Active lurasidone (Latuda) 20 mg tablet Take 1 Tablet by mouth daily. 05/03/2022 Active busPIRone (BUSPAR) 30 mg tablet TK 1 T PO TID 07/23/2020 Activ e zolpidem (AMBIEN) 10 mg tablet Take 10 [...] stress disorder) 03/08/2017 Recurrent major depressive disorder ([facility] V24 ) 03/08/2017 Immunizations Name Administration Dates Next Due [...] Influencers of Health Screening 09/26/2022 COVID-19 Vaccine (3 - 2023-2 5 season) 2024 03/08/2021, 02/18/2021 [...] age to complete this topic Meningococcal B Vaccine Aged Out No l onger eligible based on patient's age to complete [...] l Result * Hepatitis C Screening (02/04/2022) Hepatitis C Screening abstracted Historical Provider HEALTH MAINTENANCE Final Result * HIV Screening (09/28/2019) HIV Screening abstrated Historical Provider HEALTH MAINTENANCE Final Result from Last 3 Months or Most Recently Relevant to Health Maintenance Care Teams Outdoor Adventure Leader Relationship Specialty Start Date End Date Snow Velasquez MD [address] [place] [address] PCP - General Internal Medicine 03/10/17
--- OUTSIDE RECORDS SUMMARY | 2025-02-16 13:20 | XMS_ITS | Clinical Summary ---
Author Organization [facility] Address [address] [place] [address] Care Team Providers Care Magnaflux Operator Name Role Phone Snow Velasquez MD Primary Care Provider [phone] Allergies No known active allergies Medications Medication [...] age to complete this topic Care Teams Magnaflux Operator Relationship Specialty Start Date End Date Snow Velasquez MD PCP - General Internal Medicine 11/24/23
== END 2025-02-16 14:06 | disposition home or self-care (01) ==
LOC: HO.HUSH 13:00
PROVIDERS: Visit Provider Urology
DX: N48.39 Other priapism (principal)
CPT/HCPCS: 99214

== ENCOUNTER → 2025-02-16 12:59 | Outpatient (BNVA) | payer OTHER, SELFPAY | PROVIDERS: Visit Provider Urology | DX: N48.39 Other priapism (principal) | CPT/HCPCS: 99212 ==

== ENCOUNTER 2025-04-24 10:43 | Outpatient (REF) | payer OTHER, SELFPAY ==
--- OUTSIDE RECORDS SUMMARY | 2025-04-24 11:46 | XMS_ITS | Clinical Summary ---
Author Organization [facility] Address [address] [place] [address] Care Team Providers Care Delinquent Tax Collector Assistant Name Role Phone Snow Velasquez MD Primary Care Provider [phone] Allergies No known active allergies Medications Medication [...] space. 0 06/13/2021 Active Cholecalciferol 50 MCG (2000 UT) TABS Take 1 tablet by mouth [...] 85 02/27/2022 8:58 AM EDT Temperature 36.7 C (98.1 F) 02/27/2022 8:58 AM EDT Respiratory Rate 16 02/27/2022 8:58 AM EDT [...] season) 2024 03/08/2021, 02/18/2021 Influenza Vaccine (#1) 2025 DTap / Tdap / Td (2 - Td or Tdap) 03/01/2026 03/01/2016 Pneumococcal Vaccine Aged Out No long er eligible based on patient's age to complete this topic RSV Ped < 20 months Aged Out No longe r eligible based on patient's age to complete this topic Care Teams Delinquent Tax Collector Assistant Relationship Specialty Start Date End Date Snow Velasquez MD PCP - General Internal Medicine 11/24/23
--- OUTSIDE RECORDS SUMMARY | 2025-04-24 11:46 | XMS_ITS | Clinical Summary ---
Author Organization 175 [facility] Address [address] [place] [address] Phone Care Team Providers Care Quilt Sewer Name Role Phone Snow Velasquez MD Primary Care Provider [phone] Allergies Active Allergy Reactions Criticality Noted Date [...] Active Problems Problem Noted Date Diagnosed Date MARQUIS (obstructive sleep apnea) 03/30/2025 Priapism 04/21/2023 Fatty liver 03/02/2022 Gallbladder polyp [...] stress disorder) 03/08/2017 Recurrent major depressive disorder (CMS/[facility] V24 ) 03/08/2017 Immunizations Name [...] 01/10/2024 11:27 AM EDT Plan of Treatment Upcoming Encounters Date Type Department Care Team ([facility] st Contact Info) Description 05/14/2025 10:45 AM EDT Office Visit Pulmonolgy - [place] 175 [facility] [address] [place] [phone] Jose Bob MD [address] [address] Health Maintenance Due Date Last Done Comments Hepatitis B Vaccines (1 of 3 - 19+ 3-dose series) 1996 Pneumococcal Vaccine: Pediatrics (0 to 5 Years) and At-Risk Patients (6 to 49 Years) (1 of 2 - PCV) 1996 Colorectal Cancer Screening: Colonoscopy 09/26/2022 Depression Screening 09/26/2022 Social Influencers of Health Screening 09/26/2022 COVID-19 Vaccine (3 - 2023-2 5 season) 2024 03/08/2021, 02/18/2021 Influenza Vaccine (#1) 2025 DTaP,Tdap,and Td Vaccines (2 - Td [...] Results * (ABNORMAL) Lipid panel (01/10/2024) Pathologist [facility] LDL/HDL Ratio 4 0 - 4 Triglycerides 136 0 - 150 mg/dL Cholesterol 256(A) 0 - 200 mg/dL HDL 71 >=40 mg/dL LDL Cholesterol 158(A) 0 - 100 mg/dL Blood Venous blood specimen / Unknown Historical Provider LAB BLOOD ORDERABLES Ashli l Result * Hepatitis C Screening (02/04/2022) Pathologist [facility] Hepatitis C Screening abstracted us Historical Provider HEALTH MAINTENANCE Final Result * HIV Screening (09/28/2019) Pathologist [facility] HIV Screening abstrated Historical Provider HEALTH MAINTENANCE Final Result from Last 3 Months or Most Recently Relevant to Health Maintenance Insurance [employer] Care Teams Quilt Sewer Relationship Specialty Start Date End Date Snow Velasquez MD [address] [place] [address] PCP - General Internal Medicine 03/10/17
--- OUTSIDE RECORDS SUMMARY | 2025-04-24 11:46 | XMS_ITS ---
Author Name [facility] Organization Unknown Encounters Encounter Type Encounter Reason Primary Diagnosis Location Date Ambulatory [facility] 07/28/2024 Care Team Organization Name Specialty Phone Email Start Date End Da te [facility] 2024
[2025-04-24 12:22] LABS: Cholesterol 249 mg/dL (<200); HDL Cholesterol 49 mg/dL (>40); Triglycerides 159 mg/dL (<150)
== END 2025-04-24 10:44 | disposition home or self-care (01) ==
LOC: HO.LAB 10:43
DX: E78.00 Pure hypercholesterolemia, unspecified (principal)
CPT/HCPCS: 36415; 80061

== ENCOUNTER 2025-04-25 10:06 | Outpatient (AMB) | payer OTHER, SELFPAY ==
--- NOTE | 2025-04-25 10:09 | MHC.PC.OV ---
Vital Signs 04/25/25 10:10 Height 5 ft 6 in Weight 171 lb BMI 27.6 BP 116/64 Blood Pressure Location Lt brachial Position Sitting Pulse 84 Pulse Source Pulse Oximeter Pulse Oximetry (%) 96 Oxygen Delivery Method Room Air Intake Visit Reasons: f/u HLD Carding Machine Operator Required: No Accompanied by: Self / Same As Patient Allergies No Known Allergies (No Known Allergies*) Allergy (Verified 04/25/25 10:09) Medication List - Last Reconciled 04/25/25 by Lynn Sarkar PA-C buspirone 30 mg PO BID cane As directed cholecalciferol (vitamin D3) (Vitamin D3) 50 mcg PO DAILY clonazepam 0.5 mg PO BID PRN cyclobenzaprine 10 mg PO TID PRN fluticasone propionate 50 mcg/actuation 2 sprays intranasal DAILY ketorolac 10 mg PO TID PRN 5 days lidocaine 5% topical DAILY PRN loratadine 10 mg PO DAILY lurasidone 20 mg PO DAILY omeprazole 20 mg PO DAILY oxycodone-acetaminophen 5-325 mg 1 tab PO QID PRN [quad cane As directed] zolpidem 10 mg PO BEDTIME PRN Tobacco use date assessed: 01/22/25 Dental Screening Dental Screen Date: 04/25/25 Did you have a dental visit in the last 12 months?: No Did you have a dental problem in the last 6 months where you did not have access to dental care?: No Was dental information given to patient?: No HPI f/u HLD HPI Details 49-year-old male with past medical history of anxiety, fatty liver disease, bipolar disorder, PTSD, hypercholesterolemia, GERD, fibromyalgia, obstructive sleep apnea and vitamin-D deficiency last seen 01/2025 coming in for follow up. Presenting with hypercholesterolemia and tension-type headaches. Despite dietary changes aimed at reducing cholesterol, the patient's levels have worsened, leading to confusion and concern. The patient reports daily headaches triggered by sunlight and driving, characterized by pressure without accompanying nausea or vomiting. The patient has a history of fibromyalgia, with symptoms including panic attacks and a sensation of being frozen upon waking. A recurrent lesion on the right index finger causes pain and bleeding, with unsuccessful attempts at home treatment. [facility] Family History Father Pancreatic cancer Mother Ovarian cancer Maternal Grandfather Stomach cancer Social History Housing: Apartment Alcohol intake: current Alcohol type: beer Patient Tobacco Use Status: Current someday Tobacco user (once per month ) Tobacco use type: Cigar e-Cigarette/Vaping Use: Never Used Second Hand Smoke Exposure: Yes Substance Use Type: Marijuana service: No Current occupational status: unemployed Cognitive needs: Yes (Cane) Hearing needs: No Vision needs: Yes (Glasses) Questionnaire PHQ-9 Over the last 2 weeks, how often have you been bothered by any of the following problems? 1. Little interest or pleasure in doing things: nearly every day 2. Feeling down, depressed, or hopeless: nearly every day 3. Trouble falling or staying asleep, or sleeping too much: nearly every day 4. Feeling tired or having little energy: nearly every day 5. Poor appetite or overeating: nearly every day 6. Feeling bad about yourself - or that you are a failure or have let yourself or your family down: nearly every day 7. Trouble concentrating on things, such as reading the newspaper or watching television: nearly every day 8. Moving or speaking so slowly that other people could have noticed. Or the opposite - being so fidgety or restless that you have been moving around a lot more than usual: nearly every day 9. Thoughts that you would be better off or of hurting yourself in some way: nearly every day Total score: 27 Depression Screening Interpretation: Positive Depression Screening Done: Yes 18041 - PHQ-9 Billing: Yes Source: Developed by Drs. Dallin Bustamante, Alyssia Blanco, Martin Rodrigez and colleagues, with an educational jeremiah from [employer]. Thrive Questionnaire Date Thrive assessed: 04/25/25 I am a: Patient What is your living situation today?: I have a steady place to live Within the past 12 months, did the food you bought not last and you didn't have the money to get more?: Sometimes True Within the past 12 months, did you worry whether your food would run out before you got money to buy more?: Sometimes True Do you have trouble paying for medicines?: Yes Do you have trouble getting transportation to medical appointments?: No Do you have trouble paying your heating and electricity bill?: No Do you have trouble taking care of your child, family member or friend?: No Do you have trouble with day-to-day activities such as bathing, preparing meals, shopping, managing finances, etc.?: No Are you currently unemployed and looking for a job?: No Are you interested in more education?: No Please select the resources that you would like help with: Housing/M[facility], Food and Care for elder or disabled Currently or been in a relationship where the following occur: I choose not to answer THRIVE Score: 2 AUDIT C Alcohol Use Questionnaire (AUDIT-C) 1. How often do you have a drink containing alcohol?: 2-4 times a month 2. How many drinks containing alcohol do you have on a typical day when you are drinking?: 1 or 2 3. How often do you have six or more drinks on one occasion?: Less than monthly Total Score: 3 LUZ MARIA-7 AMB Questionnaire LUZ MARIA-7 Date LUZ MARIA - 7 assessed: 04/25/25 Feeling nervous, anxious, or on edge: 3 = Nearly every day Not being able to stop or control worryin = Nearly every day Worrying too much about different things: 3 = Nearly every day Trouble relaxin = Nearly every day Being so restless that it is hard to sit still: 3 = Nearly every day Becoming easily annoyed or irritable: 3 = Nearly every day Feeling afraid as if something awful might happen: 3 = Nearly every day Total LUZ MARIA-7 score (0-4 normal; 5-9 mild; 10-14 moderate; 15-21 severe): 21 Source: Developed by Drs. Dallin Bustamante, Alyssia Blanco, Martin Rodrigez and colleagues, with an educational jeremiah from [employer]. LUZ MARIA-7 Assessment Billing LUZ MARIA-7 Assessment Tool: LUZ MARIA-7 Assessment 95981 Review of Systems Const Denies body aches, Denies chills, Denies fever(s), Denies headache(s) and Denies poor appetite Eyes Reports no additional complaints ENT Denies dysphagia, Denies dizziness, Denies headache(s) and Denies odynophagia Card Denies chest pain, Denies syncope, Denies edema, Denies irregular heart rhythm, Denies lightheadedness and Denies dyspnea Resp Denies cough and Denies dyspnea GI Denies abdominal pain, Denies constipation, Denies dysphagia, Denies diarrhea, Denies nausea, Denies odynophagia and Denies vomiting Reports no additional complaints Musc Reports no additional complaints and Denies abnormal gait Skin/Breast Reports system reviewed and no additional complaints, except as documented Neuro Denies abnormal gait, Denies dizziness, Denies syncope and Denies headache(s) Psych Reports no additional complaints Physical exam (Primary Care) Vital Signs: Last Vital Signs Pulse 84 04/25/25 10:10 BP 116/64 04/25/25 10:10 Pulse Ox 96 04/25/25 10:10 Oxygen Delivery Method Room Air 04/25/25 10:10 BMI result Body Mass Index 27.6 Tobacco/Smoking Status: Tobacco use Status Tobacco use date assessed 01/22/25 04/25/25 10:17 Patient Tobacco Use Status Current someday Tobacco ( 04/25/25 10:43 once per month ) Tobacco use type Cigar 04/25/25 10:17 e-Cigarette/Vaping Use Never Used 04/25/25 10:17 PHQ-9: PHQ-9 Score PHQ-9: Total score 27 04/25/25 10:24 Depression Screening Interpretation: Positive Thrive Assessment: Date of Thrive Assessment Date Thrive assessed 04/25/25 04/25/25 10:17 Currently or been in a relationship where the following occur: I choose not to answer Const General: cooperative, healthy appearing, comfortable and no acute distress Orientation/consciousness: patient oriented x3 HENMT Head: Yes normocephalic Ears: hearing grossly normal bilaterally General nose exam: Normal external nose present Eyes General: appearance normal, both eyes and all related structures Conjunctivae: conjunctivae normal Neck Neck: Yes full ROM and Yes no lymphadenopathy Resp Effort & Inspection: normal respiratory effort Auscultation: clear to auscultation bilaterally, no crackles, no rales, no rhonchi and no wheezes Cardio Rate: regular rate Rhythm: regular rhythm Skin General skin exam: no rashes or lesions noted Full body images:  1. soft, nontender palpable mass 2. soft, nontender lump on right index finger Neuro General: patient oriented x3 Gait exam (Neuro): Normal gait present Extrem General: Yes normal to inspection, Yes full ROM and No edema Psych Affect: normal affect Attitude: cooperative Insight: Good insight present (Psych) Judgement: Good judgement present (Psych) Coding Level of Care Code Est Pt Level 4 (22126) Diagnoses Anxiety F41.9 Hypercholesterolemia E78.00 GERD (gastroesophageal reflux disease) K21.9 Elevated LFTs R79.89 Frequent headaches R51.9 Sebaceous cyst of finger L72.3 Mass in neck R22.1 Fibromyalgia M79.7 Dermatitis L30.9 Additional Codes LUZ MARIA-7 Assessment Billing - LUZ MARIA-7 Assessment Tool: LUZ MARIA-7 Assessment 91963 ([id number]) PHQ-9 - 99276 - PHQ-9 Billing: Yes ([id number]) Assessment & Plan Assessment & Plan (1) Anxiety: Comment: [facility] weekly Code(s): F41.9 - Anxiety disorder, unspecified Category: Medical Plan: on Buspar, Klonipin, Lurasidone and currently following with [facility] weekly. (2) Hypercholesterolemia: Code(s): E78.00 - Pure hypercholesterolemia, unspecified Category: Medical Plan: Avoid foods that are high in cholesterol such as red meat, fried foods, eggs and baked goods. Triglyceride goal of less than 150 and LDL goal of less than 130. Not currently on medical management. Patient having persistently elevated LDL recommended low-dose statin and prescription was sent to pharmacy today. Plan to repeat labs in 3 months (3) GERD (gastroesophageal reflux disease): Code(s): K21.9 - Gastro-esophageal reflux disease without esophagitis Category: Medical Plan: Avoid trigger foods such as citrus, tomato products, soda, caffeine, spicy foods and other foods that may be irritating to your stomach. Avoid laying flat 3-4 hours after eating and elevate the head of the bed 30 degrees to prevent acid from moving into the esophagus. Restarted on omeprazole (4) Elevated LFTs: Code(s): R79.89 - Other specified abnormal findings of blood chemistry Category: Medical Plan: LFTs improved on blood work. Patient previously diagnosed with fatty liver disease through ultrasound at last PCP. Healthy diet and regular exercise is encouraged. (5) Frequent headaches: Code(s): R51.9 - Headache, unspecified Category: Medical Plan: Referral was placed to Neurology at patient request as he is having recurrent headaches. I did discuss with the patient hospital triggers. Avoid dehydration, practice well-balanced meals and good sleep hygiene. Advised patient to keep a headache journal to bring to Neurology visits (6) Sebaceous cyst of finger: Code(s): L72.3 - Sebaceous cyst Category: Medical Plan: Patient having a recurrent sebaceous cyst of the right index finger. Referral was placed to General surgery as he would like it removed. (7) Mass in neck: Code(s): R22.1 - Localized swelling, mass and lump, neck Category: Medical Plan: Patient has a small palpable nontender mass in between the left shoulder in the neck. Referral was placed to General surgery for possible excision (8) Fibromyalgia: Comment: family physiatry Dr. Nick requesting pain contract through our office - Valdemar Reynoso Code(s): M79.7 - Fibromyalgia Category: Medical Plan: Patient is requesting a pain contract through our office for the oxycodone-acetaminophen states his physiatry office recommended through the primary care. Advised the patient I would discuss with my attending as well as the pain clinic has been not typically take on controlled substance contract unless absolutely necessary. (9) Dermatitis: Code(s): L30.9 - Dermatitis, unspecified Category: Medical Plan: Patient also having dermatitis of bilateral hands prescription was sent for triamcinolone as he has tried conservative measures without good benefit. Advised to use this medication for more than 14 days at a time Plan The patient will begin atorvastatin therapy to address hypercholesterolemia, with a follow-up scheduled in three months to evaluate cholesterol and liver function. A neurology referral is planned to further assess the tension-type headaches, and the patient should keep a headache diary to help identify triggers. A referral to general surgery is made for the removal of the recurrent skin lesion, given the long wait for dermatology. Continued follow-up with [facility] mental health and pain management discussions with the current provider are recommended. This note was constructed using voice recognition software. While every effort has been made to ensure accuracy and machine setter supervisor, still areas may have been included sometimes these areas may affect the content or meeting of the given symptoms. Total time spent caring for the patient today was 20 minutes. This includes time spent before the visit reviewing the chart, time spent during the visit, and time spent after the visit and documentation. Patient was informed and verbally consented to the use of an ambient scribe for clinic note documentation during this visit. Orders: Orders Lipid Panel 3 Months E78.00 - Pure hypercholesterolemia, unspecified Liver Panel 3 Months R79.89 - Other specified abnormal findings of blood chemistry Referrals Neurology Referral R51.9 - Headache, unspecified General Surgery Referral L72.3 - Sebaceous cyst, R22.1 - Localized swelling, mass and lump, neck Medications: New triamcinolone acetonide 0.1% 1 appl topical DAILY 15 grams 0RF atorvastatin (Lipitor) 10 mg PO BEDTIME 90 tabs 0RF Refilled cyclobenzaprine 10 mg PO TID PRN 14 tabs 0RF muscle spasm omeprazole 20 mg PO DAILY 90 caps 2RF cholecalciferol (vitamin D3) (Vitamin D3) 50 mcg PO DAILY 90 tabs 2RF Discontinued ketorolac Discontinued Reason: Patient no longer taking 10 mg PO TID 5 days PRN 15 tabs 0RF pain
[2025-04-25 10:10] VITALS: BP 116/64; PULSE 84; O2SAT 96; BMI 27.6
--- OUTSIDE RECORDS SUMMARY | 2025-04-25 10:51 | XMS_ITS | Clinical Summary ---
Author Organization 175 [facility] Address [address] [place] [address] Phone Care Team Providers Care Inventory Coordinator Name Role Phone Snow Velasquez MD Primary Care Provider [phone] Allergies Active Allergy Reactions Criticality Noted Date [...] stress disorder) 03/08/2017 Recurrent major depressive disorder (CMS/[facility] V24 ) 03/08/2017 Immunizations Name Administration Dates [...] Upcoming Encounters Date Type Department Care Team ([facility] st Contact Info) Description 05/14/2025 10:45 AM EDT Office Visit Pulmonolgy - [place] 175 [facility] [address] [place] [phone] Jose Bob MD [address] [address] Health Maintenance Due Date Last Done Comments [...] Results * (ABNORMAL) Lipid panel (01/10/2024) Pathologist [facility] LDL/HDL Ratio 4 0 - 4 Triglycerides 136 0 - 150 mg/dL Cholesterol 256(A) 0 - 200 mg/dL HDL 71 >=40 mg/dL LDL Cholesterol 158(A) 0 - 100 mg/dL Blood Venous blood specimen / Unknown Historical Provider LAB BLOOD ORDERABLES Ashli l Result * Hepatitis C Screening (02/04/2022) Pathologist [facility] Hepatitis C Screening abstracted us Historical Provider HEALTH MAINTENANCE Final Result * HIV Screening (09/28/2019) Pathologist [facility] HIV Screening abstrated Historical Provider HEALTH MAINTENANCE Final Result from Last 3 Months or Most Recently Relevant to Health Maintenance Insurance [facility] [place] [phone] Care Teams Inventory Coordinator Relationship Specialty Start Date End Date Snow Velasquez MD [address] [place] [address] PCP - General Internal Medicine 03/10/17
--- OUTSIDE RECORDS SUMMARY | 2025-04-25 10:51 | XMS_ITS | Clinical Summary ---
Author Organization [facility] Address [address] [place] [address] Care Team Providers Care Ferry Hand Name Role Phone Snow Velasquez MD Primary Care Provider [phone] Allergies No known active allergies Medications Medication [...] age to complete this topic Care Teams Ferry Hand Relationship Specialty Start Date End Date Snow Velasquez MD PCP - General Internal Medicine 11/24/23
== END 2025-04-25 11:02 | disposition home or self-care (01) ==
LOC: HO.HMCH 10:06
DX: F41.9 Anxiety disorder, unspecified (principal); E78.00 Pure hypercholesterolemia, unspecified; K21.9 Gastro-esophageal reflux disease without esophagitis; R79.89 Other specified abnormal findings of blood chemistry; R51.9 Headache, unspecified; L72.3 Sebaceous cyst; R22.1 Localized swelling, mass and lump, neck; M79.7 Fibromyalgia; L30.9 Dermatitis, unspecified

== ENCOUNTER → 2025-04-25 10:06 | Outpatient (BNVA) | payer OTHER, SELFPAY | DX: K21.9 Gastro-esophageal reflux disease without esophagitis (principal); E78.00 Pure hypercholesterolemia, unspecified; R79.89 Other specified abnormal findings of blood chemistry; F41.9 Anxiety disorder, unspecified; F31.9 Bipolar disorder, unspecified; F43.10 Post-traumatic stress disorder, unspecified; M79.7 Fibromyalgia; R51.9 Headache, unspecified; L72.3 Sebaceous cyst; R22.1 Localized swelling, mass and lump, neck; L30.9 Dermatitis, unspecified | CPT/HCPCS: 96127; 99212 ==

== ENCOUNTER 2025-05-30 09:42 | Outpatient (AMB) | payer OTHER, SELFPAY ==
--- NOTE | 2025-05-30 10:02 | A.OFFVIS_ITS ---
Vital Signs 05/30/25 10:03 Height 5 ft 6 in Weight 173 lb BMI 27.9 BP 120/72 Blood Pressure Location Rt brachial Position Sitting Pulse 95 Pulse Source Pulse Oximeter Pulse Oximetry (%) 98 Oxygen Delivery Method Room Air Intake Visit Reasons: inp-headache Dry Charge Process Attendant Required: No Accompanied by: Self / Same As Patient Allergies No Known Allergies (No Known Allergies*) Allergy (Verified 05/30/25 10:03) Medication List - Last Reconciled 05/30/25 by MILLICENT Hankins atorvastatin (Lipitor) 10 mg PO BEDTIME buspirone 30 mg PO BID cane As directed cholecalciferol (vitamin D3) (Vitamin D3) 50 mcg PO DAILY clonazepam 0.5 mg PO BID PRN cyclobenzaprine 10 mg PO TID PRN fluticasone propionate 50 mcg/actuation 2 sprays intranasal DAILY lidocaine 5% topical DAILY PRN loratadine 10 mg PO DAILY lurasidone 20 mg PO DAILY magnesium oxide 400 mg PO BEDTIME 30 days omeprazole 20 mg PO DAILY oxycodone-acetaminophen 5-325 mg 1 tab PO QID PRN propranolol ER 60 mg PO BEDTIME 30 days [quad cane As directed] sumatriptan succinate 50 - 100 mg orally at onset of headache, may repeat in 2 hrs PRN; max 2 tabs per day or 4 tabs/week (may take with Ibuprofen) 30 days tadalafil (Cialis) 5 mg PO DAILY triamcinolone acetonide 0.1% 1 appl topical DAILY zolpidem 10 mg PO BEDTIME PRN HPI Comments Details: History of Present Illness The patient is a 49-year-old right-handed male presenting with a headache. He reports a history of headaches that began at least 8 years ago, possibly while he was incarcerated, though he denies any specific precipitating factors such as injury or infection. ?The headaches initially occurred intermittently, with periods of remission and exacerbation. Since his release, they initially lessened in severity but have progressively worsened to nearly daily occurrences. There is a significant impact on his daily activities and relationships due to the severity and persistence of his headaches. Triggers for increased headache severity include stress and exposure to light. Dark environments and cars with tinted windows offer slight relief. Historical ly, the patient managed his pain with Tylenol and Excedrin, which provided minimal relief. He last saw Neurology, few years ago; however, per the patient, previous neurologists focused on managing his fibromyalgia rather than addressing his headaches. His last eye exam was 6 months ago; he notes that they have had some difficulty finding the right contact lenses. He denies a direct neck injury history. However, he suffered a low back injury approximately 4 years ago, resulting in chronic low back pain with LLE radicular symptoms, and an upper back injury approximately 1 year ago, which affects his upper back and neck as well. He sees his therapist weekly and has just established care with a new psychiatrist through [facility]. 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-C7 producing spinal canal and neural foraminal narrowing Review of Systems - Neurological: Reports headaches, photophobia, and difficulty with balance and thinking; Denies seizures or passing out - Ophthalmologic: Reports tearing and photophobia - Gastrointestinal: Denies vomiting; Reports history of GERD - Psychiatric: Reports anxiety, bipolar disorder Type 1, PTSD, he suspects ADHD - Respiratory: Denies use of CPAP for sleep apnea - Musculoskeletal: Reports fibromyalgia, history of back injuries - Cardiovascular: Denies hypertension; Monitored in the past - Genitourinary: History of sepsis secondary to UTI; resolved Past Medical History - Reviewed the chart, including the following - Fibromyalgia - Chronic Migraines - Generalized Anxiety Disorder - Bipolar I Disorder - Gastroesophageal Reflux Disease (GERD) - Hyperlipidemia - Sleep Apnea (mild, not requiring CPAP) - History of sepsis with UTI origin Pertinent denials include:? Denies history of head injuries, kidney stones, hypertension, blood clots, asthma, COPD, seizure, syncope, thyroid dysfunction, diabetes, and bothersome constipation. ? Family History - Sister with a history of headaches - No specifics on potential tumor mentioned in sister Headache Review Headache questionnaire:? Age/time of onset: At least 2 years ago Preceding causes: No known causes Previous work-up: None Types of headache disorders: Chronic, constant headache Typical headache characteristics: Prodrome symptoms: nausea Aura: unsure Pain intensity: severe Location, quality, characteristics: Usually right-sided or back of head or midfrontal and at left-sided- pounding/stabbing headache. Associated symptoms: eye pain, watery eyes, photophobia, allodynia, nausea, spinning dizziness, not right in space dizziness, lightheadedness, fatigue, cognitive difficulties, activity intolerance. Postdrome: has a constant headache Aggravating factors- very cold packs, light Triggers: stress, light, driving at night Time of day: during the day Duration and Frequency: Constant headache that varies in intensity Headache impacts patient's quality of life: All these things have robbed me of my life. Current acute medication use/interventions: Uses Oxycodone for body pains- does not help headaches. Current preventative medication use: None Current non-pharmacological interventions: rest, sunglasses, dark room, cooler showers, diet changes, drinking fluids. Headache Lifestyle Factors - The patient reports avoidance of caffeine and maintains good hydration - Exercise not performed due to pain and limitations from fibromyalgia - Sleep pattern affected by headaches; details of sleep hygiene not explicitly mentioned - The patient does have a 2-year-old female dog, Peaches, who accompanies the patient today. 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 He is mindful of staying hydrated and has a history of GERD, for which dietary modifications have been made. Exercise The patient is unable to exercise due to fibromyalgia and physical limitations, despite previous enjoyment in barbering. Sleep - Reports difficulty sleeping due to pain and headaches - Does not use CPAP machine for diagnosed mild sleep apnea Substance Use History Denies any current substance use Employment - Formerly employed as a brown - Unable to work currently due to physical limitations from fibromyalgia [facility] Medical History (Updated 05/30/25 @ 21:07 by MILLICENT Hankins) Family history of brain tumor Family History Father Pancreatic cancer Mother Ovarian cancer Maternal Grandfather Stomach cancer Social History Housing: Apartment Alcohol intake: current Alcohol type: beer Patient Tobacco Use Status: Current someday Tobacco user (once per month ) Tobacco use type: Cigar e-Cigarette/Vaping Use: Never Used Second Hand Smoke Exposure: Yes Substance Use Type: Marijuana service: No Current occupational status: unemployed Cognitive needs: Yes (Cane) Hearing needs: No Vision needs: Yes (Glasses) Physical Exam Vital Signs: Last Vital Signs Pulse 95 05/30/25 10:03 BP 120/72 05/30/25 10:03 Pulse Ox 98 05/30/25 10:03 Oxygen Delivery Method Room Air 05/30/25 10:03 BMI result Body Mass Index 27.9 Const Orientation/consciousness: patient oriented x3 Resp Effort & Inspection: normal respiratory effort and able to speak in complete sentences Neuro Other: Marked photophobia, which limits physical exam some Patient unable to perform EOM due to photophobia, even with room lights dimmed Diffuse palpable facial tenderness. General: patient oriented x3 Cranial nerves: Yes CN's II-XII intact bilaterally Cognition (Neuro): normal cognition Gait exam (Neuro): Antalgic gait present and Assistive device used (Cane) Motor exam (neuro): 5/5 motor strength present throughout Deep tendon reflexes (DTR's): Right triceps reflex intensity grade: 2+, Left triceps reflex intensity grade: 2+, Rt Biceps (C5, C6): 2+, Left biceps reflex intensity grade: 2+, Right brachioradialis reflex intensity grade: 2+, Left brachioradialis reflex intensity grade: 2+, Right patellar reflex intensity grade: 2+ and Left patellar reflex intensity grade: 3+ Coordination: [id number] test normal and Romberg test negative Pupils: Normal pupillary reactivity/response: bilateral Psych Appearance: grossly normal Mental Status: mental status grossly normal Speech and movement: Normal speech and movement present Affect: normal affect Attitude: cooperative Thought process: Normal thought process present Results Reviewed Results Reviewed: Narrative & Impression [facility] Diagnostic Imaging Department [address] [place], [place] [id number] Patient: MADONNA UMANZORMEGAN Belle/Age/Sex: 1975 - 47 - M Unit#: [id number] Location/Status: SPDIMRI/REG CLI Mnemonic/Ordering Site: [facility] Ordering Physician: HANG RIVAS DO MR Cervical Spine WO - 12/24/22 - MRI of the cervical spine: December 24, 2022 at 1536 hours Clinical History: Radiculopathy. Technique: Multiplanar multiecho MRI sequences of the cervical spine were performed without intravenous contrast. Comparison: No prior study is available for comparison at the time of interpretation. Findings: The height and alignment of the vertebral bodies are within normal limits. The marrow signal is unremarkable. No fracture is seen. The cervicomedullary junction is within normal limits. The caliber and signal intensity of the spinal cord to the extent visualized are within normal limits. The pre and paraspinal soft tissues are unremarkable. C1/2: There is no central canal narrowing. The facet joints are within normal limits. C2/3: The disc height is within normal limits. The disc signal is decreased.There is no disc contour abnormality, central canal or neural foraminal narrowing. The facet joints are within normal limits. C3/4: The disc height is within normal limits. The disc signal is decreased. There is no disc contour abnormality, central canal or neural foraminal narrowing. The facet joints are within normal limits. C4/5: The disc height is within normal limits. The disc signal is decreased. There is a small central disc protrusion, causing mild central canal narrowing and no significant neural foraminal narrowing. The facet joints are within normal limits. C5/6: The disc height is within normal limits. The disc signal is decreased. There is no disc contour abnormality, central canal or neural foraminal narrowing. The facet joints are within normal limits. C6/7: The disc height is within normal limits. The disc signal is decreased.. There is a small right paracentral/foraminal disc protrusion, causing mild central canal narrowing and moderate right neural foraminal narrowing. The facet joints are within normal limits. C7/T1: The disc height is within normal limits. The disc signal is decreased. There is no disc contour abnormality, central canal or neural foraminal narrowing. The facet joints are within normal limits. 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 Assessment & Plan Assessment & Plan (1) Worsening headaches: Code(s): R51.9 - Headache, unspecified Category: Medical (2) Photophobia: Code(s): H53.149 - Visual discomfort, unspecified Category: Medical (3) Chronic migraine without aura: Code(s): G43.709 - Chronic migraine without aura, not intractable, without status migrainosus Category: Medical Qualifiers: Status migrainosus presence: without status migrainosus Intractability: not intractable Qualified Code(s): G43.709 - Chronic migraine without aura, not intractable, without status migrainosus Plan Discussion Notes I advised the patient to undergo a brain MRI with and without contrast to assess for secondary intracranial etiologies of worsening headache, in the setting of a family history of intracranial/brain tumor (in his sister). We discussed the likely diagnosis of chronic migraine and its management. I introduced the use of sumatriptan for acute headache relief, emphasizing that it should be used at the onset of symptoms and reiterated the potential side effects, such as nausea and tingly sensations. We explored propranolol as a daily preventative measure, considering its benefits in managing both headaches and anxiety, and discussed its potential impact on blood pressure and stress-related symptoms. I explained the potential interactions and compatibility with current medications. Additionally, I discussed the benefits of lifestyle adjustments, including vitamin supplements such as magnesium and B2. After outlining these management plans and receiving the patient?s consent, I emphasized the importance of follow-up to monitor the effectiveness of treatment and adjustments if necessary. Patient was informed and verbally consented to the use of an ambient scribe for clinic note documentation during this visit. You are advised to undergo: Brain MRI with and without contrast to assess for secondary etiologies of worsening headache in setting of family history of intracranial tumor. For overall headache management: * Optimize good self-care, including but not limited to maintaining a healthy diet, adequate fluid intake, adequate sleep, and engaging in regular physical activity. * Track headaches and both positive and negative effects of your headache treatment trials, especially after any treatment regimen changes. * [employer] is one of many headache tracking apps. * A simple paper calendar is also a good option. * Non-pharmacological interventions which may help to alleviate your headache attack frequency, severity, and associated symptoms: For light sensitivity: You may benefit from trying blue light filtering glasses, FL-41 blue light filter in glasses, green glasses, green light therapy. Avoid wearing traditional sunglasses inside. For sound sensitivity: You may benefit from trying noise cancellation ear plugs. Neuromodulation devices, which can be used alone or with pharmacological treatment. For acute (as needed) headache treatment: It is important to take acute medications at the first sign of headache. However, please be aware that frequently using most acute medications may increase the frequency of your headache attacks, as well as make your other treatments less effective.. Trial Sumatriptan 100mg tab, 1/2 - 1 tab (50-100mg) at onset of headache, may repeat in 2 hours. Max of 2 tabs (200mg) per 24 hours. * May take sumatriptan with OTC Tylenol 650-1,000mg every 4-6 hours, Ibuprofen (liquid gels) 600mg every 6 hours, or Naproxen (liquid gels) 440mg q 12 hrs prn. * Potential adverse effects of triptans, include but are not limited to nausea, fatigue, chest tightness/tingling (usually passes within a few minutes), medication overuse headaches. Previous acute migraine medication trials: Tylenol and Excedrin- ineffective. Acute migraine medication contraindications: None at this time For headache prevention medication: Preventative medications should be taken routinely as prescribed for best effect, it may take several weeks for full effect to take effect. Start Riboflavin 400mg daily in the morning * This is generally well tolerated, however some people may experience mild abdominal discomfort from use. * This will cause your urine to become bright yellow or orange, which is expected and not of any concern. Start Magnesium 400mg daily at bedtime * Magnesium comes in many subtypes, such as magnesium oxide, glycinate, citrate, and even try magnesium combinations. Additionally magnesium comes in many forms, including tablets, capsules, powders or even liquid formulations. There is not a specific magnesium subtype or form known to be significantly more effective than another. Rather, the magnesium subtype inform that you best tolerate, is the best version for you. * Possible side effects of magnesium include, but are not limited to, GI upset, abdominal cramping, loose stools, and diarrhea Start Propranolol ER 60 mg daily at bedtime. * Potential side effects include but are not limited to fatigue, lightheadedness, low blood pressure, low heart rate, asthma/respiratory disease exacerbation, weight gain, hair loss, sexual dysfunction. Previous migraine prevention medication trials: Gabapentin 900 mg TID- ineffective Migraine prevention medication contraindications: Antidepressant as patient currently not on an opposing mood stabilizer Case discussed with Dr Kaylan Valdovinos. We will follow-up upon review of above and with a follow-up clinic visit in 2 and 6 months or sooner as needed. Orders: Orders MR head/brain wo/w con Today H53.149 - Visual discomfort, unspecified, R51.9 - Headache, unspecified, Z84.89 - Family history of other specified conditions Medications: New propranolol ER 60 mg PO BEDTIME 30 caps 6RF 30 days magnesium oxide may hold for loose stools 400 mg PO BEDTIME 30 tabs 6RF 30 days riboflavin (vitamin B2) 400 mg PO DAILY 30 tabs 6RF 30 days sumatriptan succinate 50 - 100 mg orally at onset of headache, may repeat in 2 hrs PRN; max 2 tabs per day or 4 tabs/week (may take with Ibuprofen) 12 tabs 6RF migraine headache 30 days Coding Level of Care Code New Pt Level 4 (67352) Diagnoses Worsening headaches R51.9 Photophobia H53.149 Chronic migraine without aura without status migrainosus, not intractable G43.709 Status migrainosus presence: without status migrainosus Intractability: not intractable
[2025-05-30 10:03] VITALS: BP 120/72; PULSE 95; O2SAT 98; BMI 27.9
--- OUTSIDE RECORDS SUMMARY | 2025-05-30 10:11 | XMS_ITS | Clinical Summary ---
Author Organization [address] [facility] Address [address] [place] [address] Phone Care Team Providers Care Signwriter Name Role Phone Snow Velasquez MD Primary Care Provider [phone] Allergies Active Allergy Reactions Criticality Noted Date [...] stress disorder) 03/08/2017 Recurrent major depressive disorder (CMS/[facility] V24 ) 03/08/2017 Encounters Date Type Department Care Team Description 05/14/2025 2:15 PM EDT Office Visit Pulmonolgy - [address] [place] [address] Simba Raymond MD MARQUIS (obstructive sleep apnea) (Primary Dx); Dyspnea, unspecified type from Last 3 Months Immunizations Name Administration Dates Next Due Tdap [...] Sign Reading Time Taken Comments Blood Pressure 128/76 05/14/2025 2:23 PM EDT Pulse 92 05/14/2025 2:23 PM EDT Temperature 36.2 C (97.2 F) 05/14/2025 2:23 PM EDT Respiratory Rate 20 05/14/2025 2:23 PM EDT Oxygen Saturation 98% 05/14/2025 2:23 PM EDT Inhaled Oxygen Concentration - - Weight 80.3 kg (177 lb) 05/14/2025 2:23 PM EDT Height 167.6 cm (5' 6 ) 05/14/2025 2:23 PM EDT Body Mass Index 28.57 05/14/2025 2:23 PM EDT Plan of Treatment Upcoming Encounters Date Type Department Care Team (Late st Contact Info) Description 11/12/2025 1:15 PM EST Office Visit Pulmonol - [place] [address] [facility] [address] [place] [id number] Simba Raymond MD [address] [facility] [address] [place] [address] Health Maintenance Due Date Last Done Comments Hepatitis B Vaccines (1 of 3 - 19+ 3-dose series) 1996 Pneumococcal Vaccine: Pediatrics (0 to 5 Years) and At-Risk Patients (6 to 49 Years) (1 of 2 - PCV) 1996 Colorectal Cancer Screening: Colonoscopy 09/26/2022 Social Influencers of Health Screening 09/26/2022 COVID-19 Vaccine (3 - 2023-2 5 season) 2024 03/08/2021, 02/18/2021 Depression Screening 10/18/2024 Influenza Vaccine (#1) 2025 DTaP,Tdap,and Td Vaccines [...] mg/dL Blood Venous blood specimen / Unknown us Historical Provider LAB BLOOD ORDERABLES Ashli l Result * Hepatitis C Screening (02/04/2022) Pathologist [facility] Hepatitis C Screening abstracted us Historical Provider HEALTH MAINTENANCE Final Result * HIV Screening (09/28/2019) HIV Screening abstrated us Historical Provider HEALTH MAINTENANCE Final Result from Last 3 Months or Most Recently Relevant to Health Maintenance Insurance [facility] Care Teams Signwriter Relationship Specialty Start Date End Date Snow Velasquez MD [address] [place] [address] PCP - General Internal Medicine 03/10/17
--- OUTSIDE RECORDS SUMMARY | 2025-05-30 10:11 | XMS_ITS | Encounter Summary ---
Author Organization [facility] Address [address] [place] [address] Care Team Providers Care Commercial Underwriter Name Role Phone Snow Velasquez MD Primary Care Provider Reason for Visit * Reason Comments E-prescribe Rx Request Encounter Details Date Type Department Care Team Description 08/16/2019 Refill Adult Medicine [address] [id number] Christin Hung NP E-prescribe Rx Request Social [...] N/A Patients current insurance carrier is: Payor: [employer] Res[employer] FFS / Plan: [employer] / Product Type: MEDICAID RISK documented in this encounter Plan of Treatment Not on file documented as of this encounter Visit Diagnoses Not on filedocumented in this encounter Care Teams Commercial Underwriter Relationship Specialty Start Date End Date Snow Velasquez MD [address] [place] [id number] PCP - General Internal Medicine 03/10/17 documented as of this encounter
--- OUTSIDE RECORDS SUMMARY | 2025-05-30 10:11 | XMS_ITS | Clinical Summary ---
[facility] Address [address] [place] [address] Care Team Providers Care Duck Farmer Name Role Phone Snow Velasquez MD Primary Care Provider [phone] Allergies No known active allergies Medications Medication [...] age to complete this topic Care Teams Duck Farmer Relationship Specialty Start Date End Date Snow Velasquez MD PCP - General Internal Medicine 11/24/23
== END 2025-05-30 11:50 | disposition home or self-care (01) ==
LOC: HO.HSMS 09:42
PROVIDERS: Visit Provider Nurse Practitioner Family
DX: R51.9 Headache, unspecified (principal); H53.149 Visual discomfort, unspecified; G43.709 Chronic migraine without aura, not intractable, without status migrainosus
CPT/HCPCS: 99204

== ENCOUNTER → 2025-05-30 09:42 | Outpatient (BNVA) | payer OTHER, SELFPAY | PROVIDERS: Visit Provider Nurse Practitioner Family | DX: G43.709 Chronic migraine without aura, not intractable, without status migrainosus (principal); H53.149 Visual discomfort, unspecified | CPT/HCPCS: 99202 ==

== ENCOUNTER 2025-06-06 10:43 | Outpatient (AMB) | payer OTHER, SELFPAY ==
--- NOTE | 2025-06-06 10:50 | A.OFFVIS_ITS ---
Vital Signs 06/06/25 10:59 Height 5 ft 6 in Weight 171 lb BMI 27.6 BP 136/77 Blood Pressure Location Rt brachial Position Sitting Pulse 75 Intake Visit Reasons: sebaceous cyst Intake Note: Patient referred by pcp Lynn Sarkar PA-C for evaluation of sebaceous cyst superior Lt shoulder. Present for 1yr. Patient c/o: enlarging, tender to touch. Bothersome with chain, rubbing. 2nd concern: Rt dosal index finger. Present for many yrs. Painful as patient is rt handed. Tried otc wart remover with no improvement. Vp Cardiovascular Required: No Accompanied by: Self / Same As Patient Allergies No Known Allergies (No Known Allergies*) Allergy (Verified 06/06/25 10:55) Medication List - Last Reconciled 06/06/25 by Carlos Glover MD atorvastatin (Lipitor) 10 mg PO BEDTIME cane As directed cholecalciferol (vitamin D3) (Vitamin D3) 50 mcg PO DAILY clonazepam 0.5 mg PO BID PRN cyclobenzaprine 10 mg PO TID PRN fluticasone propionate 50 mcg/actuation 2 sprays intranasal DAILY lidocaine 5% topical DAILY PRN magnesium oxide 400 mg PO BEDTIME 30 days omeprazole 20 mg PO DAILY oxycodone-acetaminophen 5-325 mg 1 tab PO QID PRN propranolol ER 60 mg PO BEDTIME 30 days [quad cane As directed] riboflavin (vitamin B2) 400 mg PO DAILY 30 days sumatriptan succinate 50 - 100 mg orally at onset of headache, may repeat in 2 hrs PRN; max 2 tabs per day or 4 tabs/week (may take with Ibuprofen) 30 days tadalafil (Cialis) 5 mg PO DAILY triamcinolone acetonide 0.1% 1 appl topical DAILY zolpidem 10 mg PO BEDTIME PRN HPI HPI sebaceous cyst: Details: 49-year-old male here for a cyst on the area of the left shoulder. He has had this for a few months. He thinks that this has been increasing in size and has been causing discomfort and he wants this excised. [facility] Medical History Skin lesion Epidermal inclusion cyst Family history of brain tumor Family History Father Pancreatic cancer Mother Ovarian cancer Maternal Grandfather Stomach cancer Social History Housing: Apartment Alcohol intake: current Alcohol type: beer Patient Tobacco Use Status: Current someday Tobacco user (once per month ) Tobacco use type: Cigar e-Cigarette/Vaping Use: Never Used Second Hand Smoke Exposure: Yes Substance Use Type: Marijuana service: No Current occupational status: unemployed Cognitive needs: Yes (Cane) Hearing needs: No Vision needs: Yes (Glasses) Review of Systems Const Denies chills and Denies fever(s) Card Denies chest pain, Denies dyspnea and Denies dyspnea on exertion Resp Denies cough, Denies dyspnea and Denies dyspnea on exertion GI Denies hematochezia and Denies change in bowel habits Denies hematuria and Denies difficulty urinating Musc Denies back pain and Denies limited range of motion Neuro Denies focal weakness and Denies convulsions Psych Denies depression and Denies mood swings Physical Exam Vital Signs: Last Vital Signs Pulse 75 06/06/25 10:59 BP 136/77 06/06/25 10:59 BMI result Body Mass Index 27.6 Const General: comfortable and no acute distress Orientation/consciousness: patient oriented x3 Neck Neck: Yes no lymphadenopathy Resp Auscultation: clear to auscultation bilaterally Cardio Rhythm: regular rhythm GI Palpation (GI): Soft to palpation, nontender and no guarding Back/Spine/Pelvis Other: Epidermal inclusion cyst on the left shoulder area, about 1 cm in diameter Neuro General: patient oriented x3 Assessment & Plan Assessment & Plan (1) Epidermal inclusion cyst: Code(s): L72.0 - Epidermal cyst Category: Medical Plan: He has what appears to be an epidermal inclusion cyst near the left shoulder and neck area. He wants this excised. I explained the technique of excision under local anesthesia. I reviewed the risks, including but not limited to bleeding infections, as well as the benefits and alternatives. He understands and wants to proceed This will be done in the office under local anesthesia on his next visit. Coding Level of Care Code New Pt Level 3 (43643) Diagnoses Epidermal inclusion cyst L72.0
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
[2025-06-06 10:59] VITALS: BP 136/77; PULSE 75; BMI 27.6
--- OUTSIDE RECORDS SUMMARY | 2025-06-06 12:04 | XMS_ITS | Clinical Summary ---
[facility] [address] [place] [address] Care Team Providers Care Mixer Wet Pour Name Role Phone Snow Velasquez MD Primary Care Provider [phone] Allergies No known active allergies Medications Medication [...] to complete this topic Care Teams Mixer Wet Pour Relationship Specialty Start Date End Date Snow Velasquez MD PCP - General Internal Medicine 11/24/23
--- OUTSIDE RECORDS SUMMARY | 2025-06-06 12:04 | XMS_ITS | Clinical Summary ---
Author Organization [address] [facility] Address [address] [place] [address] Phone Care Team Providers Care Hyster Driver Name Role Phone Snow Velasquez MD Primary Care Provider [phone] Allergies Active Allergy Reactions Criticality Noted Date [...] stress disorder) 03/08/2017 Recurrent major depressive disorder (CMS/[facility] V24 ) 03/08/2017 Encounters Date Type Department Care Team Description 05/14/2025 2:15 PM EDT Office Visit Pulmonolgy - [address] [place] [address] Simba Raymond MD MARQUIS (obstructive [...] 1:15 PM EST Office Visit Pulmonol - [place] [address] [facility] [address] [place] [phone] Simba Raymond MD [address] [facility] [address] [place] [address] Health Maintenance Due Date Last Done Comments [...] Result * Hepatitis C Screening (02/04/2022) Pathologist [facility] Hepatitis C Screening abstracted us Historical Provider HEALTH MAINTENANCE Final Result * HIV Screening (09/28/2019) HIV Screening abstrated us Historical Provider HEALTH MAINTENANCE Final Result from Last 3 Months or Most Recently Relevant to Health Maintenance Insurance [facility] [employer] [employer] Care Teams Hyster Driver Relationship Specialty Start Date End Date Snow Velasquez MD [address] [place] [address] PCP - General Internal Medicine 03/10/17
== END 2025-06-06 11:12 | disposition home or self-care (01) ==
LOC: HO.HGS 10:44
PROVIDERS: Visit Provider Surgery
DX: L72.0 Epidermal cyst (principal); L98.9 Disorder of the skin and subcutaneous tissue, unspecified
CPT/HCPCS: 99203

== ENCOUNTER → 2025-06-06 10:43 | Outpatient (BNVA) | payer OTHER, SELFPAY | PROVIDERS: Visit Provider Surgery | DX: L72.0 Epidermal cyst (principal); L98.9 Disorder of the skin and subcutaneous tissue, unspecified | CPT/HCPCS: 99202 ==

== ENCOUNTER 2025-06-21 10:22 | Outpatient (REF) | payer OTHER, SELFPAY ==
--- NOTE | ~2025-06-21 | MR_ITS ---
EXAMINATION: MR BRAIN WITHOUT AND WITH CONTRAST CLINICAL INFORMATION: Headache. COMPARISON: Correlated to CT dated July 09, 2018. TECHNIQUE: Multiplanar, multisequence MRI of the brain was obtained before and after the intravenous administration of 7.5 mL gadolinium based (Gadavist) without reported immediate complications.. FINDINGS: No restricted diffusion. No acute intracranial hemorrhage, mass effect, midline shift, hydrocephalus or herniation. Treadwell-white matter differentiation is normal. No abnormal enhancement within the intra-axial or the extra-axial compartment of the cranium. 1 mm enhancing structure in the deep periventricular white matter adjacent to the frontal horn left lateral ventricle probable small developmental venous anomaly versus artifact. Bilateral, nonspecific, punctate, white matter hyperintense T2 FLAIR signal involving centrum semiovale and roldan radiata. Sellar/suprasellar region is normal. Craniocervical junction demonstrates normal position of the cerebellar tonsils. Flow-void signal within the main cerebral vessels is normal. Main cerebral venous sinuses and veins are patent. Small retention cyst, left maxillary sinus. Mild mucosal thickening, ethmoid cells. MR/MR head/brain wo/w con IMPRESSION: No acute intracranial hemorrhage or acute brain abnormality. No gross abnormal enhancing lesion/mass. Nonspecific white matter T2 FLAIR signal which could be related to patient's with migraines. Electronically signed by: Warren Monique MD 06/21/2025 11:40 AM EDT
--- OUTSIDE RECORDS SUMMARY | 2025-06-21 11:43 | XMS_ITS | Clinical Summary ---
[facility] [address] [place] [address] Care Team Providers Care Naphthalene Still Operator Name Role Phone Snow Velasquez MD Primary Care Provider [phone] Allergies No known active allergies Medications Medication [...] Colon Cancer Screening (Colonoscopy) 2022 COVID-19 Vaccine (2024-2 6 season) 2025 03/08/2021, 02/18/2021 Influenza Vaccine (#1) 2025 DTap / Tdap / Td (2 - Td or Tdap) 03/01/2026 03/01/2016 Pneumococcal Vaccine Aged Out No long er eligible based on patient's age to complete this topic RSV Ped < 20 months Aged Out No longe r eligible based on patient's age to complete this topic Care Teams Naphthalene Still Operator Relationship Specialty Start Date End Date Snow Velasquez MD PCP - General Internal Medicine 11/24/23
--- OUTSIDE RECORDS SUMMARY | 2025-06-21 11:43 | XMS_ITS | Clinical Summary ---
Author Organization [address] [facility] Address [address] [place] [address] Phone Care Team Providers Care Batch And Furnace Manager Name Role Phone Snow Velasquez MD Primary Care Provider [phone] Allergies Active Allergy Reactions Criticality Noted Date [...] stress disorder) 03/08/2017 Recurrent major depressive disorder (CMS/[facility] V24 ) 03/08/2017 Encounters Date Type Department Care Team Description 05/14/2025 2:15 PM EDT Office Visit Pulmonolgy - [address] [place] [address] Simba Raymond MD MARQUIS (obstructive [...] Description 11/12/2025 1:15 PM EST Office Visit Pulmon[address] [place] [address] Simba Raymond MD [address] [place] [phone] Health Maintenance Due Date Last Done Comments Hepatitis B Vaccines (1 of 3 - 19+ 3-dose series) 1996 Pneumococcal Vaccine: Pediatrics (0 to 5 Years) and At-Risk Patients (6 to 49 Years) (1 of 2 - PCV) 1996 Colorectal Cancer Screening: Colonoscopy 09/26/2022 Social Influencers of Health Screening 09/26/2022 Depression Screening 10/18/2024 COVID-19 Vaccine (3 - 2024-2 6 season) 2025 03/08/2021, 02/18/2021 Influenza Vaccine (#1) 2025 DTaP,Tdap,and [...] Result * Hepatitis C Screening (02/04/2022) Pathologist [facility] Hepatitis C Screening abstracted Historical Provider HEALTH MAINTENANCE Final Result * HIV Screening (09/28/2019) HIV Screening abstrated Historical Provider HEALTH MAINTENANCE Final Result from Last 3 Months or Most Recently Relevant to Health Maintenance Insurance [facility] [employer] Care Teams Batch And Furnace Manager Relationship Specialty Start Date End Date Snow Velasquez MD [address] [place] [address] PCP - General Internal Medicine 03/10/17
== END 2025-06-21 10:23 | disposition home or self-care (01) ==
LOC: HO.MRI 10:22
PROVIDERS: Visit Provider Nurse Practitioner Family
DX: H53.149 Visual discomfort, unspecified (principal); Z84.89 Family history of other specified conditions; R51.9 Headache, unspecified
CPT/HCPCS: 70553; A9585

== ENCOUNTER → 2025-06-21 10:35 | Outpatient (BNV) | payer OTHER, SELFPAY | PROVIDERS: Visit Provider Radiology Diagnostic Radiology | DX: R90.82 White matter disease, unspecified (principal) | CPT/HCPCS: 70553 ==

== ENCOUNTER 2025-07-13 12:37 | Outpatient (AMB) | payer OTHER, SELFPAY ==
--- NOTE | 2025-07-13 12:27 | A.OFFVIS_ITS ---
Intake Visit Reasons: MRI results Aircraft Instrument Tester Required: No Accompanied by: Self / Same As Patient Allergies No Known Allergies (No Known Allergies*) Allergy (Verified 07/13/25 12:28) Medication List - Last Reconciled 07/13/25 by MILLICENT Hankins atorvastatin (Lipitor) 10 mg PO BEDTIME cane As directed cholecalciferol (vitamin D3) (Vitamin D3) 50 mcg PO DAILY clonazepam 0.5 mg PO BID PRN cyclobenzaprine 10 mg PO TID PRN fluticasone propionate 50 mcg/actuation 2 sprays intranasal DAILY lidocaine 5% topical DAILY PRN magnesium oxide 400 mg PO BEDTIME 30 days omeprazole 20 mg PO DAILY oxycodone-acetaminophen 5-325 mg 1 tab PO QID PRN propranolol ER 60 mg PO BEDTIME 30 days [quad cane As directed] riboflavin (vitamin B2) 400 mg PO DAILY 30 days sumatriptan succinate 50 - 100 mg orally at onset of headache, may repeat in 2 hrs PRN; max 2 tabs per day or 4 tabs/week (may take with Ibuprofen) 30 days tadalafil (Cialis) 5 mg PO DAILY triamcinolone acetonide 0.1% 1 appl topical DAILY zolpidem 10 mg PO BEDTIME PRN HPI Comments Details: 49-year-old right-handed male presents for follow-up tele-video visit for migraine and to review interval brain MRI results. MR/MR head/brain wo/w con IMPRESSION: No acute intracranial hemorrhage or acute brain abnormality. No gross abnormal enhancing lesion/mass. Nonspecific white matter T2 FLAIR signal which could be related to patient's with migraines. He states that he has started taking Riboflavin, Magnesium, and Propranolol, which he feels have helped him start feeling better. He states he is having fewer and less severe migraine attacks. Sumatriptan helps alleviate the headache but not the nausea, and may still be necessary to lie down. He still cannot stand for extended periods or lift heavier items. He does note that he can forget what he is doing or why he went into a room. 06/01/2025, initial HPI: The patient is a 49-year-old right-handed male presenting with a headache. He reports a history of headaches that began at least 8 years ago, possibly while he was incarcerated, though he denies any specific precipitating factors such as injury or infection. ?The headaches initially occurred intermittently, with periods of remission and exacerbation. Since his release, they initially lessened in severity but have progressively worsened to nearly daily occurrences. There is a significant impact on his daily activities and relationships due to the severity and persistence of his headaches. Triggers for increased headache severity include stress and exposure to light. Dark environments and cars with tinted windows offer slight relief. Historically, the patient managed his pain with Tylenol and Excedrin, which provided minimal relief. He last saw Neurology, few years ago; however, per the patient, previous neurologists focused on managing his fibromyalgia rather than addressing his headaches. His last eye exam was 6 months ago; he notes that they have had some difficulty finding the right contact lenses. He denies a direct neck injury history. However, he suffered a low back injury approximately 4 years ago, resulting in chronic low back pain with LLE radicular symptoms, and an upper back injury approximately 1 year ago, which affects his upper back and neck as well. He sees his therapist weekly and has just established care with a new psychiatrist through [facility]. 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-C7 producing spinal canal and neural foraminal narrowing Review of Systems - Neurological: Reports headaches, photophobia, and difficulty with balance and thinking; Denies seizures or passing out - Ophthalmologic: Reports tearing and photophobia - Gastrointestinal: Denies vomiting; Reports history of GERD - Psychiatric: Reports anxiety, bipolar disorder Type 1, PTSD, he suspects ADHD - Respiratory: Denies use of CPAP for sleep apnea - Musculoskeletal: Reports fibromyalgia, history of back injuries - Cardiovascular: Denies hypertension; Monitored in the past - Genitourinary: History of sepsis secondary to UTI; resolved Past Medical History - Reviewed the chart, including the following - Fibromyalgia - Chronic Migraines - Generalized Anxiety Disorder - Bipolar I Disorder - Gastroesophageal Reflux Disease (GERD) - Hyperlipidemia - Sleep Apnea (mild, not requiring CPAP) - History of sepsis with UTI origin Pertinent denials include:? Denies history of head injuries, kidney stones, hypertension, blood clots, asthma, COPD, seizure, syncope, thyroid dysfunction, diabetes, and bothersome constipation. ? Family History - Sister with a history of headaches - No specifics on potential tumor mentioned in sister Headache Review Headache questionnaire:? Age/time of onset: At least 2 years ago Preceding causes: No known causes Previous work-up: None Types of headache disorders: Chronic, constant headache Typical headache characteristics: Prodrome symptoms: nausea Aura: unsure Pain intensity: severe Location, quality, characteristics: Usually right-sided or back of head or midfrontal and at left-sided- pounding/stabbing headache. Associated symptoms: eye pain, watery eyes, photophobia, allodynia, nausea, spinning dizziness, not right in space dizziness, lightheadedness, fatigue, cognitive difficulties, activity intolerance. Postdrome: has a constant headache Aggravating factors- very cold packs, light Triggers: stress, light, driving at night Time of day: during the day Duration and Frequency: Constant headache that varies in intensity Headache impacts patient's quality of life: All these things have robbed me of my life. Current acute medication use/interventions: Uses Oxycodone for body pains- does not help headaches. Current preventative medication use: None Current non-pharmacological interventions: rest, sunglasses, dark room, cooler showers, diet changes, drinking fluids. Headache Lifestyle Factors - The patient reports avoidance of caffeine and maintains good hydration - Exercise not performed due to pain and limitations from fibromyalgia - Sleep pattern affected by headaches; details of sleep hygiene not explicitly mentioned - The patient does have a 2-year-old female dog, Peaches, who accompanies the patient today. 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 He is mindful of staying hydrated and has a history of GERD, for which dietary modifications have been made. Exercise The patient is unable to exercise due to fibromyalgia and physical limitations, despite previous enjoyment in barbering. Sleep - Reports difficulty sleeping due to pain and headaches - Does not use CPAP machine for diagnosed mild sleep apnea Substance Use History Denies any current substance use Employment - Formerly employed as a brown - Unable to work currently due to physical limitations from fibromyalgia [facility] Medical History Skin lesion Epidermal inclusion cyst Family history of brain tumor Family History Father Pancreatic cancer Mother Ovarian cancer Maternal Grandfather Stomach cancer Social History Housing: Apartment Alcohol intake: current Alcohol type: beer Patient Tobacco Use Status: Current someday Tobacco user (once per month ) Tobacco use type: Cigar e-Cigarette/Vaping Use: Never Used Second Hand Smoke Exposure: Yes Substance Use Type: Marijuana service: No Current occupational status: unemployed Cognitive needs: Yes (Cane) Hearing needs: No Vision needs: Yes (Glasses) Physical Exam Const Orientation/consciousness: patient oriented x3 Resp Effort & Inspection: normal respiratory effort and able to speak in complete sentences Neuro General: patient oriented x3 Cognition (Neuro): normal cognition Motor exam (neuro): 5/5 motor strength present throughout Psych Appearance: grossly normal Mental Status: mental status grossly normal Affect: normal affect Attitude: cooperative Thought process: Normal thought process present Telehealth Telehealth Telehealth Platform: [employer] [place] [place] Location of provider rendering services: practice address Location of patient: address on file Patient Identification confirmed using: Name, : Yes Telehealth method: video Patient verbally consented to treatment: Yes Patient verbally consented to billing insurance company: Yes Patient informed of any privacy concerns related to visit: Yes Minutes spent on Phone/Video with Pt.: 16 Results Reviewed Results Reviewed: Narrative & Impression [facility] Diagnostic Imaging Department [address] [place] [address] Patient: BUBBA FLORESROSENDO Ybarra/Age/Sex: 1975 - 47 - M Unit#: [id number] Location/Status: SPDIMRI/REG CLI Mnemonic[facility] Order[facility] Physician: HANG RIVAS DO MR Cervical Spine WO - 12/24/22 - MRI of the cervical spine: December 24, 2022 at 1536 hours Clinical History: Radiculopathy. Technique: Multiplanar multiecho MRI sequences of the cervical spine were performed without intravenous contrast. Comparison: No prior study is available for comparison at the time of interpretation. Findings: The height and alignment of the vertebral bodies are within normal limits. The marrow signal is unremarkable. No fracture is seen. The cervicomedullary junction is within normal limits. The caliber and signal intensity of the spinal cord to the extent visualized are within normal limits. The pre and paraspinal soft tissues are unremarkable. C1/2: There is no central canal narrowing. The facet joints are within normal limits. C2/3: The disc height is within normal limits. The disc signal is decreased.There is no disc contour abnormality, central canal or neural foraminal narrowing. The facet joints are within normal limits. C3/4: The disc height is within normal limits. The disc signal is decreased. There is no disc contour abnormality, central canal or neural foraminal narrowing. The facet joints are within normal limits. C4/5: The disc height is within normal limits. The disc signal is decreased. There is a small central disc protrusion, causing mild central canal narrowing and no significant neural foraminal narrowing. The facet joints are within normal limits. C5/6: The disc height is within normal limits. The disc signal is decreased. There is no disc contour abnormality, central canal or neural foraminal narrowing. The facet joints are within normal limits. C6/7: The disc height is within normal limits. The disc signal is decreased.. There is a small right paracentral/foraminal disc protrusion, causing mild central canal narrowing and moderate right neural foraminal narrowing. The facet joints are within normal limits. C7/T1: The disc height is within normal limits. The disc signal is decreased. There is no disc contour abnormality, central canal or neural foraminal narrowing. The facet joints are within normal limits. 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 Assessment & Plan Assessment & Plan (1) Chronic migraine without aura: Code(s): G43.709 - Chronic migraine without aura, not intractable, without status migrainosus Category: Medical Qualifiers: Status migrainosus presence: without status migrainosus Intractability: not intractable Qualified Code(s): G43.709 - Chronic migraine without aura, not intractable, without status migrainosus (2) Photophobia: Code(s): H53.149 - Visual discomfort, unspecified Category: Medical (3) Nausea: Code(s): R11.0 - Nausea Category: Medical Plan Reviewed brain MRI with and without contrast results and imaging with patient, results of which were unremarkable other than very mild nonspecific white matter changes, likely migraine vasculopathy versus chronic microangiopathic changes. The patient is encouraged to continue optimizing their overall cardiovascular and metabolic health. For overall headache management: * Optimize good self-care, including but not limited to maintaining a healthy diet, adequate fluid intake, adequate sleep, and engaging in regular physical activity. * Track headaches and both positive and negative effects of your headache treatment trials, especially after any treatment regimen changes. * Migraine Buddies is one of many headache tracking apps. * A simple paper calendar is also a good option. * Non-pharmacological interventions which may help to alleviate your headache attack frequency, severity, and associated symptoms: For light sensitivity: You may benefit from trying blue light filtering glasses, FL-41 blue light filter in glasses, green glasses, green light therapy. Avoid wearing traditional sunglasses inside. For sound sensitivity: You may benefit from trying noise cancellation ear plugs. Neuromodulation devices, which can be used alone or with pharmacological treatment. For acute (as needed) headache treatment: It is important to take acute medications at the first sign of headache. However, please be aware that frequently using most acute medications may increase the frequency of your headache attacks, as well as make your other treatments less effective.. Continue Sumatriptan 100mg tab, 1/2 - 1 tab (50-100mg) at onset of headache, may repeat in 2 hours. Max of 2 tabs (200mg) per 24 hours. * May take sumatriptan with OTC Tylenol 650-1,000mg every 4-6 hours, Ibuprofen (liquid gels) 600mg every 6 hours, or Naproxen (liquid gels) 440mg q 12 hrs prn. * Potential adverse effects of triptans, include but are not limited to nausea, fatigue, chest tightness/tingling (usually passes within a few minutes), medication overuse headaches. Start ondansetron ODT 4 mg, 1-2 tabs every 4-6 hours as needed for migraine with nausea and vomiting. Previous acute migraine medication trials: Tylenol and Excedrin- ineffective. Acute migraine medication contraindications: None at this time For headache prevention medication: Preventative medications should be taken routinely as prescribed for best effect, it may take several weeks for full effect to take effect. Continue Riboflavin 400mg daily in the morning * This is generally well tolerated, however some people may experience mild abdominal discomfort from use. * This will cause your urine to become bright yellow or orange, which is expecte d and not of any concern. Continue Magnesium 400mg daily at bedtime * Magnesium comes in many subtypes, such as magnesium oxide, glycinate, citrate, and even try magnesium combinations. Additionally magnesium comes in many forms, including tablets, capsules, powders or even liquid formulations. There is not a specific magnesium subtype or form known to be significantly more effective than another. Rather, the magnesium subtype inform that you best tolerate, is the best version for you. * Possible side effects of magnesium include, but are not limited to, GI upset, abdominal cramping, loose stools, and diarrhea Continue Propranolol ER 60 mg daily at bedtime. * Potential side effects include but are not limited to fatigue, lightheadedness, low blood pressure, low heart rate, asthma/respiratory disease exacerbation, weight gain, hair loss, sexual dysfunction. Previous migraine prevention medication trials: Gabapentin 900 mg TID- ineffective Migraine prevention medication contraindications: Antidepressant as patient currently not on an opposing mood stabilizer Follow-up clinic visit in 2 months as scheduled, or sooner as needed. Medications: New ondansetron 4 - 8 mg (1 - 2 x 4 mg) PO Q4-6H PRN 30 tabs 3RF nausea and vomiting/migraine 30 days MDD 4 tabs NS Coding Level of Care Code Tele Est Pt Level 4 (76918) Diagnoses Chronic migraine without aura without status migrainosus, not intractable G43.709 Status migrainosus presence: without status migrainosus Intractability: not intractable Photophobia H53.149 Nausea R11.0
--- OUTSIDE RECORDS SUMMARY | 2025-07-13 14:07 | XMS_ITS | Clinical Summary ---
Author Organization [address] [facility] Address [address] [place] [address] Phone Care Team Providers Care Cotton Farmworker Name Role Phone Snow Velasquez MD Primary Care Provider [phone] Allergies Active Allergy Reactions Criticality Noted Date [...] stress disorder) 03/08/2017 Recurrent major depressive disorder (CMS/[facility] V24 ) 03/08/2017 Encounters Date Type Department Care Team Description 05/14/2025 2:15 PM EDT Office Visit Pulmonology - [address] [place] [address] Simba Raymond MD MARQUIS (obstructive [...] Description 11/12/2025 1:15 PM EST Office Visit Pulmonology - [place] [address] [facility] [address] [place] [address] Simba Raymond MD [address] [facility] [address] [place] [address] Health Maintenance Due Date Last Done Comments Hepatitis B Vaccines (1 of 3 - 19+ 3-dose series) 1996 Pneumococcal Vaccine: Pediatrics (0 to 5 Years) and At-Risk Patients (6 to 49 Years) (1 of 2 - PCV) 1996 Colorectal Cancer Screening: Colonoscopy 09/26/2022 Social Influencers of Health Screening 09/26/2022 Depression Screening 10/18/2024 COVID-19 Vaccine ( - 2025-2 6 season) 2025 03/08/2021, 02/18/2021 Influenza Vaccine [...] Results * (ABNORMAL) Lipid panel (01/10/2024) Pathologist [facility] LDL/HDL Ratio 4 0 - 4 Triglycerides 136 0 - 150 mg/dL Cholesterol 256(A) 0 - 200 mg/dL HDL 71 >=40 mg/dL LDL Cholesterol 158(A) 0 - 100 mg/dL Blood Venous blood specimen / Unknown us Historical Provider LAB BLOOD ORDERABLES Ashli l Result * Hepatitis C Screening (02/04/2022) Pathologist [facility] Hepatitis C Screening abstracted us Historical Provider HEALTH MAINTENANCE Final Result * HIV Screening (09/28/2019) HIV Screening abstrated us Historical Provider HEALTH MAINTENANCE Final Result from Last 3 Months or Most Recently Relevant to Health Maintenance Insurance [facility] Care Teams Cotton Farmworker Relationship Specialty Start Date End Date Snow Velasquez MD [address] [place] [address] PCP - General Internal Medicine 03/10/17
--- OUTSIDE RECORDS SUMMARY | 2025-07-13 14:07 | XMS_ITS | Clinical Summary ---
Author Organization [facility] Address [address] [place] [address] Care Team Providers Care Communication Professor Name Role Phone Snow Velasquez MD [...] age to complete this topic Care Teams Communication Professor Relationship Specialty Start Date End Date Snow Velasquez MD PCP - General Internal Medicine 11/24/23
== END 2025-07-13 13:31 | disposition home or self-care (01) ==
LOC: HO.HSMS 12:37
PROVIDERS: Visit Provider Nurse Practitioner Family
DX: G43.709 Chronic migraine without aura, not intractable, without status migrainosus (principal); H53.149 Visual discomfort, unspecified; R11.0 Nausea
CPT/HCPCS: 99214

== ENCOUNTER 2025-07-18 08:53 | Outpatient (AMB) | payer OTHER, SELFPAY ==
--- NOTE | 2025-07-18 08:56 | A.OFFVIS_ITS ---
Intake Visit Reasons: excision sebaceous cyst Intake Note: Office procedure: excision sebaceous cyst President/Gm Production & Live Experiences Required: No Accompanied by: Self / Same As Patient Allergies No Known Allergies (No Known Allergies*) Allergy (Verified 07/18/25 08:56) [facility] Medical History Skin lesion Epidermal inclusion cyst Family history of brain tumor Family History Father Pancreatic cancer Mother Ovarian cancer Maternal Grandfather Stomach cancer Social History Housing: Apartment Alcohol intake: current Alcohol type: beer Patient Tobacco Use Status: Current someday Tobacco user (once per month ) Tobacco use type: Cigar e-Cigarette/Vaping Use: Never Used Second Hand Smoke Exposure: Yes Substance Use Type: Marijuana service: No Current occupational status: unemployed Cognitive needs: Yes (Cane) Hearing needs: No Vision needs: Yes (Glasses) Office Procedures Excision Details: The area of the epidermal cyst on the left shoulder was prepped and draped. Lidocaine 1% was used for local anesthesia. I made an incision in the skin surrounding this cyst with a blade 15. And this was carried down through the full-thickness of the skin and subcutaneous fat to excise this entire cystic induration. He says he is about 1 cm in diameter. This was sent as a specimen. The incision was then closed with full-thickness nylon 3-0 simple interrupted sutures. Dressings were applied . [id number]/arms/legs 0.6-1cm Procedure code (CPT) selection complete Procedure Thyroid Biopsy Procedural Documentation: Procedure: Cauterization of a verruca skin lesion on the index finger and right The area was prepped and draped. Lidocaine 1% was used for local anesthesia. I then used electrocautery the i-STAT to cauterize this entire lesion. This was about a 5 mm very close lesion on the finger. Dressings were then applied. He tolerated procedure well. Assessment & Plan Assessment & Plan (1) Epidermal inclusion cyst: Code(s): L72.0 - Epidermal cyst Category: Medical Plan: Excision was done in the office under local anesthesia. He will be seen in the office in about 2 weeks for removal sutures. He can take Tylenol and ibuprofen for pain. (2) Skin lesion: Code(s): L98.9 - Disorder of the skin and subcutaneous tissue, unspecified Category: Medical Plan: Cauterization using the i-STAT was done in the office. Given wound care instructions Coding Level of Care Code Procedure Only Diagnoses Epidermal inclusion cyst L72.0 Skin lesion L98.9 CPT Codes Trunk/Arms/Legs - CPT: [id number]/arms/legs 0.6-1cm ([id number])
--- OUTSIDE RECORDS SUMMARY | 2025-07-18 09:33 | XMS_ITS | Clinical Summary ---
Author Organization [address] [facility] Address [address] [place] [address] Phone Care Team Providers Care Trench Digger Helper Name Role Phone Snow Velasquez MD Primary Care Provider [phone] Allergies Active Allergy Reactions Criticality Noted Date [...] 03/08/2017 Recurrent major depressive disorder (CMS/[facility] V24 ) 03/08/2017 Encounters Date Type Department Care Team Description 05/14/2025 2:15 PM EDT Office Visit Pulmonology - [address] [place] [address] Simba Raymond MD MARQUIS (obstructive sleep apnea) (Primary Dx); Dyspnea, unspecified type from Last 3 Months Immunizations Immunization Administration Dates Next Due Tdap Tetanus diptheria [...] 1:15 PM EST Office Visit Pulmonology - [place] [address] [facility] [address] [place] [id number] Simba Raymond MD [address] [facility] [address] [place] [address] Health Maintenance Due Date Last Done Comments Colorectal Cancer Screening: Colonoscopy 1977 Hepatitis B Vaccines (1 of 3 - 19+ 3-dose series) 1996 Social Influencers of Health Screening 09/26/2022 Depression Screening 10/18/2024 COVID-19 Vaccine (3 - 2024-2 6 season) 2025 03/08/2021, 02/18/2021 Influenza Vaccine (#1) 2025 DTaP,Tdap,and Td Vaccines (2 - Td or Tdap) 03/01/2026 03/01/2016 Cholesterol Screening (Lipid Panel) 01/09/2029 01/10/2024 RSV Immunization Adult Patients (1 - 1-dose 75+ series) 2052 HIV Screening Completed 09/28/2019 Hepatitis C Screening [...] on patient's age to complete this topic Pneumococcal Vaccine: Pediatrics (0 to 5 Years) and At-Risk Patients (6 to 49 Years) Aged Out No longer eligible b ased [...] Most Recently Relevant to Health Maintenance Insurance [facility] [employer] Care Teams Trench Digger Helper Relationship Specialty Start Date End Date Snow Velasquez MD [address] [place] [address] PCP - General Internal Medicine 03/10/17
--- OUTSIDE RECORDS SUMMARY | 2025-07-18 09:33 | XMS_ITS | Clinical Summary ---
Author Organization [facility] Address [address] [place] [address] Care Team Providers Care Photonic Laboratory Technician Name Role Phone Snow Velasquez MD Primary Care Provider [phone] Allergies No known active allergies Medications Medication [...] age to complete this topic Care Teams Photonic Laboratory Technician Relationship Specialty Start Date End Date Snow Velasquez MD PCP - General Internal Medicine 11/24/23
== END 2025-07-18 09:23 | disposition home or self-care (01) ==
LOC: HO.HGS 08:54
PROVIDERS: Visit Provider Surgery
DX: L72.0 Epidermal cyst (principal); L98.9 Disorder of the skin and subcutaneous tissue, unspecified
CPT/HCPCS: 11401

== ENCOUNTER 2025-07-18 08:53 | Outpatient (REF) | payer OTHER, SELFPAY | END 2025-07-18 08:54 | disposition home or self-care (01) | LOC: HO.LNP 08:53 | PROVIDERS: Visit Provider Surgery | DX: L72.0 Epidermal cyst (principal); L98.9 Disorder of the skin and subcutaneous tissue, unspecified | CPT/HCPCS: 11401; 88304 ==

== ENCOUNTER 2025-08-01 08:00 | Outpatient (REF) | payer OTHER, SELFPAY ==
--- OUTSIDE RECORDS SUMMARY | 2025-08-01 08:09 | XMS_ITS | Clinical Summary ---
Author Organization [facility] Address [address] [place] [address] Phone Care Team Providers Care Feather Stitcher Name Role Phone Snow Velasquez MD Primary Care Provider [phone] Allergies Active Allergy Reactions Criticality Noted Date [...] stress disorder) 03/08/2017 Recurrent major depressive disorder (CMS/[facility] V24 ) 03/08/2017 Encounters Date Type Department Care Team Description 05/14/2025 2:15 PM EDT Office Visit Pulmonology - [address] [place] [address] Simba Raymond MD MARQUIS (obstructive [...] 1:15 PM EST Office Visit Pulmonology - [place] [address] [facility] [address] [place] [phone] Simba Raymond MD [address] [facility] [address] [place] [address] Health Maintenance Due Date Last Done Comments [...] Recently Relevant to Health Maintenance Insurance [facility] Care Teams Feather Stitcher Relationship Specialty Start Date End Date Snow Velasquez MD [address] [place] [address] PCP - General Internal Medicine 03/10/17
[2025-08-01 10:28] LABS: Alanine Aminotransferase 45 U/L (0-40); Albumin Level 4.4 g/dL (3.5-5.0); Alkaline Phosphatase 108 U/L (39-117); Aspartate Amino Transferase 20 U/L (5-37); Cholesterol 188 mg/dL (<200); HDL Cholesterol 44 mg/dL (>40); Total Protein 7.0 g/dL (6.5-8.0); Triglycerides 130 mg/dL (<150)
== END 2025-08-01 08:01 | disposition home or self-care (01) ==
LOC: HO.LAB 08:00
DX: R79.89 Other specified abnormal findings of blood chemistry (principal); E78.00 Pure hypercholesterolemia, unspecified; L91.8 Other hypertrophic disorders of the skin; Z98.890 Other specified postprocedural states; Z48.02 Encounter for removal of sutures; Z87.2 Personal history of diseases of the skin and subcutaneous tissue
CPT/HCPCS: 36415; 80061; 80076

== ENCOUNTER 2025-08-01 08:48 | Outpatient (AMB) | payer OTHER, SELFPAY ==
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
[2025-08-01 08:58] VITALS: BP 136/102; PULSE 89; BMI 27.6
--- OUTSIDE RECORDS SUMMARY | 2025-08-01 09:23 | XMS_ITS | Encounter Summary ---
Author Organization [facility] Address [address] [place] [address] Care Team Providers Care Talent Management Manager Name Role Phone Snow Velasquez MD Primary Care Provider [phone] Encounter Details Date Type Department Care Team Description 03/22/2023 Clinical Registered Nurse Report Medical Records [address] [place] [address] [facility] Urology [address] [place] [address] [id number] Social History Tobacco Use Types Packs/Day Years [...] on filedocumented in this encounter Care Teams Talent Management Manager Relationship Specialty Start Date End Date Snow Velasquez MD [address] [place], [place] [phone] PCP - General Internal Medicine 03/10/17 documented as of this encounter
--- OUTSIDE RECORDS SUMMARY | 2025-08-01 09:23 | XMS_ITS | Encounter Summary ---
Author Organization [facility] Address [address] [place] [address] Care Team Providers Care Professor Of Genetics Name Role Phone Snow Velasquez MD Primary Care Provider [phone] Encounter Details Date Type Department Care Team Description 02/10/2023 Burnishing Machine Operator Report Medical Records [address] [place] [address] Valdemar Reynoso PA-C Social History Tobacco Use [...] on filedocumented in this encounter Care Teams Professor Of Genetics Relationship Specialty Start Date End Date Snow Velasquez MD [address] [place] [address] [phone] PCP - General Internal Medicine 03/10/17 documented as of this encounter
--- OUTSIDE RECORDS SUMMARY | 2025-08-01 09:23 | XMS_ITS | Encounter Summary ---
Author Organization [facility] Address [address] [place] [address] Care Team Providers Care Milk Treater Name Role Phone Snow Velasquez MD Primary Care Provider [phone] Encounter Details Date Type Department Care Team Description 05/15/2024 Claim Technician Report Medical Records [address] [place] [address] Valdemar Reynoso PA-C Social History Tobacco Use [...] on filedocumented in this encounter Care Teams Milk Treater Relationship Specialty Start Date End Date Snow Velasquez MD [address] [place] [address] [phone] PCP - General Internal Medicine 03/10/17 documented as of this encounter
--- OUTSIDE RECORDS SUMMARY | 2025-08-01 09:23 | XMS_ITS | Encounter Summary ---
Author Organization [facility] Address [address] [place] [address] Care Team Providers Care Senior Capital Markets Specialist Name Role Phone Snow Velasquez MD Primary Care Provider [phone] Encounter Details Date Type Department Care Team Description 11/07/2019 Refill Physiatry - [place] [address] [place] [address] [phone] Valdemar Reynoso PA-C Social History Tobacco Use [...] filedocumented in this encounter Care Teams Senior Capital Markets Specialist Relationship Specialty Start Date End Date Snow Velasquez MD [address] [place] [address] PCP - General Internal Medicine 03/10/17 documented as of this encounter
--- OUTSIDE RECORDS SUMMARY | 2025-08-01 09:23 | XMS_ITS | Encounter Summary ---
Author Organization [facility] Address [address] [place] [address] Care Team Providers Care Income Tax Analyst Name Role Phone Snow Velasquez MD Primary Care Provider [phone] Encounter Details Date Type Department Care Team Description 05/24/2023 Technical Supervisor Report Medical Records [address] [place] [address] Tru Oates DO Social History Tobacco Use [...] on filedocumented in this encounter Care Teams Income Tax Analyst Relationship Specialty Start Date End Date Snow Velasquez MD [address] [place] [address] [phone] PCP - General Internal Medicine 03/10/17 documented as of this encounter
--- OUTSIDE RECORDS SUMMARY | 2025-08-01 09:23 | XMS_ITS | Encounter Summary ---
Author Organization [facility] Address [address] [place] [address] Care Team Providers Care Field Artillery Targeting Technician Name Role Phone Snow Velasquez MD Primary Care Provider Reason for Visit * Reason Comments E-prescribe Rx Request Encounter Details Date Type Department Care Team Description 08/13/2019 Refill Adult Urgent Care - [place] [address] [place] [address] [phone] Snow Velasquez MD [address] [place] [address] [phone] E-prescribe Rx Request Social History Tobacco Use [...] encounter Miscellaneous Notes * Telephone Encounter - Francesca Ward - 08/14/2019 7:19 PM EDT Patient would like script to be: E-PRESCRIBED/FAXED TO PHARMACY WHEN WAS THE PATIENT'S LAST APPOINTMENT IN ADULT MEDICINE? 07/10/19 WHEN WAS THE LAST TIME THE PATIENT SAW THEIR PCP? Same as above Does patient have an upcoming appointment? No-no answer, no voicemail documented x2 (Please verify telephone contact #'s at next phone call) (THE MEDICATION REQUESTED IS ON THE MED [...] N/A Patients current insurance carrier is: Payor: [employer]FS / Plan: [facility] / Product Type: MEDICAID RISK documented in this encounter Plan of Treatment Not on file documented as of this encounter Visit Diagnoses Not on filedocumented in this encounter Care Teams Field Artillery Targeting Technician Relationship Specialty Start Date End Date Snow Velasquez MD [address] [place] [address] [phone] PCP - General Internal Medicine 03/10/17 documented as of this encounter
--- OUTSIDE RECORDS SUMMARY | 2025-08-01 09:23 | XMS_ITS | Encounter Summary ---
Author Organization [facility] Address [address] [place] [address] Care Team Providers Care Grocery Specialist Name Role Phone Snow Velasquez MD Primary Care Provider Reason for Visit * Reason Comments E-prescribe Rx Request Encounter Details Date Type Department Care Team Description 10/24/2021 Refill Physiatry - [place] [address] [place] [address] [phone] Valdemar Reynoso PA-C E-prescribe Rx Request Social [...] on filedocumented in this encounter Care Teams Grocery Specialist Relationship Specialty Start Date End Date Snow Velasquez MD [address] [place] [phone] PCP - General Internal Medicine 03/10/17 documented as of this encounter
--- OUTSIDE RECORDS SUMMARY | 2025-08-01 09:23 | XMS_ITS | Encounter Summary ---
Author Organization [facility] Address [address] [place] [address] Care Team Providers Care Control Board Operator Name Role Phone Snow Velasquez MD Primary Care Provider [phone] Encounter Details Date Type Department Care Team Description 07/10/2024 Arterial Embalmer Report Medical Records [address] [place] [address] Valdemar Reynoso PA-C Social History Tobacco Use [...] on filedocumented in this encounter Care Teams Control Board Operator Relationship Specialty Start Date End Date Snow Velasquez MD [address] [place] [address] [phone] PCP - General Internal Medicine 03/10/17 documented as of this encounter
--- OUTSIDE RECORDS SUMMARY | 2025-08-01 09:23 | XMS_ITS | Encounter Summary ---
Author Organization [email or web address] Address [address] [place] [address] Care Team Providers Care Rn Trauma Name Role Phone Snow Velasquez MD Primary Care Provider [phone] Encounter Details Date Type Department Care Team Description 12/11/2020 Fuel Buyer Report Medical Records [address] [place] [address] Shekhar Saavedra MD Social History Tobacco Use [...] on filedocumented in this encounter Care Teams Rn Trauma Relationship Specialty Start Date End Date Snow Velasquez MD [address] [place] [address] PCP - General Internal Medicine 03/10/17 documented as of this encounter
--- OUTSIDE RECORDS SUMMARY | 2025-08-01 09:23 | XMS_ITS | Encounter Summary ---
Author Organization [facility] Address [address] [place] [address] Care Team Providers Care Medical Coding Technician Name Role Phone Snow Velasquez MD Primary Care Provider [phone] Encounter Details Date Type Department Care Team Description 12/15/2023 Apartment Rental Agent Report Medical Records [address] [place] [address] Valdemar Reynoso PA-C Social History Tobacco Use [...] on filedocumented in this encounter Care Teams Medical Coding Technician Relationship Specialty Start Date End Date Snow Velasquez MD [address] [place] [address] [phone] PCP - General Internal Medicine 03/10/17 documented as of this encounter
--- OUTSIDE RECORDS SUMMARY | 2025-08-01 09:23 | XMS_ITS | Encounter Summary ---
Author Organization [facility] Address [address] [place] [address] Care Team Providers Care Certified Energy Manager Name Role Phone Snow Velasquez MD Primary Care Provider [phone] Encounter Details Date Type Department Care Team Description 10/29/2023 Orders Only Medical Records [address] [place] [address] Darwin Guan Social History Tobacco Use Types [...] on filedocumented in this encounter Care Teams Certified Energy Manager Relationship Specialty Start Date End Date Snow Velasquez MD [address] [place] [phone] PCP - General Internal Medicine 03/10/17 documented as of this encounter
--- OUTSIDE RECORDS SUMMARY | 2025-08-01 09:23 | XMS_ITS | Encounter Summary ---
Author Organization [employer] [facility] Address [address] [place] [address] Care Team Providers Care Accounting Analyst Name Role Phone Snow Velasquez MD Primary Care Provider [phone] Encounter Details Date Type Department Care Team Description 12/29/2023 Associate Professor Of Geography Report Medical Records [address] [place] [address] Valdemar Reynoso PA-C Social History Tobacco Use [...] on filedocumented in this encounter Care Teams Accounting Analyst Relationship Specialty Start Date End Date Snow Velasquez MD [address] [place] [address] [phone] PCP - General Internal Medicine 03/10/17 documented as of this encounter
--- OUTSIDE RECORDS SUMMARY | 2025-08-01 09:23 | XMS_ITS | Encounter Summary ---
Author Organization [facility] Address [address] [place] [address] Care Team Providers Care Yarn Polishing Machine Operator Name Role Phone Snow Velasquez MD Primary Care Provider [phone] Encounter Details Date Type Department Care Team Description 09/13/2023 Paper Roll Machine Operator Report Medical Records [address] [place] [address] Valdemar Reynoso PA-C Social History Tobacco Use [...] on filedocumented in this encounter Care Teams Yarn Polishing Machine Operator Relationship Specialty Start Date End Date Snow Velasquez MD [address] [place] [phone] PCP - General Internal Medicine 03/10/17 documented as of this encounter
--- OUTSIDE RECORDS SUMMARY | 2025-08-01 09:23 | XMS_ITS | Encounter Summary ---
Author Organization [facility] Address [address] [place] [address] Care Team Providers Care Associate Professor Of Philosophy Name Role Phone Snow Velasquez MD Primary Care Provider [phone] Encounter Details Date Type Department Care Team Description 04/28/2024 Ordnance Officer Report Medical Records [address] [place] [address] Tru Oates DO Social History Tobacco Use [...] on filedocumented in this encounter Care Teams Associate Professor Of Philosophy Relationship Specialty Start Date End Date Snow Velasquez MD [address] [place] [address] [phone] PCP - General Internal Medicine 03/10/17 documented as of this encounter
--- OUTSIDE RECORDS SUMMARY | 2025-08-01 09:23 | XMS_ITS | Encounter Summary ---
Author Organization [facility] Address [address] [place] [address] Care Team Providers Care Exterminator Name Role Phone Snow Velasquez MD Primary Care Provider [phone] Encounter Details Date Type Department Care Team Description 01/19/[address] Medicine [facility] [address] [place] [address] Fawad Rojo APRN [address] [place] [address] Tiredness; Fatigue, unspecified type Social History Tobacco [...] type documented in this encounter Care Teams Exterminator Relationship Specialty Start Date End Date Snow Velasquez MD [address] [place] [address] PCP - General Internal Medicine 03/10/17 documented as of this encounter
--- OUTSIDE RECORDS SUMMARY | 2025-08-01 09:23 | XMS_ITS | Clinical Summary ---
Author Organization [facility] Address [address] [place] [address] Care Team Providers Care Cigar Bander Name Role Phone Snow Velasquez MD Primary Care Provider [phone] Allergies No known active allergies Medications Medication [...] age to complete this topic Care Teams Cigar Bander Relationship Specialty Start Date End Date Snow Velasquez MD PCP - General Internal Medicine 11/24/23
--- OUTSIDE RECORDS SUMMARY | 2025-08-01 09:24 | XMS_ITS | Encounter Summary ---
Author Organization [facility] Address [address] [place] [address] Care Team Providers Care Extension Worker Name Role Phone Snow Velasquez MD Primary Care Provider [phone] Encounter Details Date Type Department Care Team Description 03/29/2020 [facility] Medical Records [address] [place] [address] Abstract, Provider Social History Tobacco Use Types [...] on filedocumented in this encounter Care Teams Extension Worker Relationship Specialty Start Date End Date Snow Velasquez MD [address] [place] [address] [phone] PCP - General Internal Medicine 03/10/17 documented as of this encounter
--- OUTSIDE RECORDS SUMMARY | 2025-08-01 09:24 | XMS_ITS | Encounter Summary ---
Author Organization [facility] Address [address] [place] [address] Care Team Providers Care Patient Relations Specialist Name Role Phone Snow Velasquez MD Primary Care Provider Encounter Details Date Type Department Care Team Description 06/29/2022 Hospital Medical Records [address] [place] [address] Social History Tobacco Use Types Packs/Day Years [...] on filedocumented in this encounter Care Teams Patient Relations Specialist Relationship Specialty Start Date End Date Snow Velasquez MD [address] [place] [address] PCP - General Internal Medicine 03/10/17 documented as of this encounter
--- OUTSIDE RECORDS SUMMARY | 2025-08-01 09:24 | XMS_ITS | Encounter Summary ---
Author Organization [facility] [employer] [facility] Address [address] [place] [address] Care Team Providers Care Life Science Technical Officer Name Role Phone Snow Velasquez MD Primary Care Provider [phone] Encounter Details Date Type Department Care Team Description 12/31/2022 Tracer Bullet Section Supervisor Report Medical Records [address] [place] [address] Valdemar Reynoso PA-C Social History Tobacco Use [...] on filedocumented in this encounter Care Teams Life Science Technical Officer Relationship Specialty Start Date End Date Snow Velasquez MD [address] [place] [address] [phone] PCP - General Internal Medicine 03/10/17 documented as of this encounter
--- OUTSIDE RECORDS SUMMARY | 2025-08-01 09:24 | XMS_ITS | Encounter Summary ---
Author Organization [facility] [facility] Address [address] [place] [address] Care Team Providers Care Wrapper Sizer Name Role Phone Snow Velasquez MD Primary Care Provider [phone] Reason for Visit * Reason Onset Date Comments refill request 02/25/2020 DIPHENOXYLATE-AT ROP 2.5-0.025 Encounter Details Date Type Department Care Team Description 02/25/2020 Refill Gastroenterology - [place] [address] [facility] [address] [place] [address] Ritesh Escamilla PA-C refill request [...] on filedocumented in this encounter Care Teams Wrapper Sizer Relationship Specialty Start Date End Date Snow Velasquez MD [address] [place] [address] PCP - General Internal Medicine 03/10/17 documented as of this encounter
--- OUTSIDE RECORDS SUMMARY | 2025-08-01 09:24 | XMS_ITS | Encounter Summary ---
Author Organization [facility] Address [address] [place] [address] Care Team Providers Care Restaurant Host Name Role Phone Snow Velasquez MD Primary Care Provider [phone] Encounter Details Date Type Department Care Team Description 08/14/2020 Refill Gastroenterology - [place] [address] [facility] [address] [place] [address] Eduard Ramirez MD Social History Tobacco Use Types Packs/Day [...] on filedocumented in this encounter Care Teams Restaurant Host Relationship Specialty Start Date End Date Snow Velasquez MD [address] [place] [address] [phone] PCP - General Internal Medicine 03/10/17 documented as of this encounter
--- OUTSIDE RECORDS SUMMARY | 2025-08-01 09:24 | XMS_ITS | Encounter Summary ---
Author Organization [facility] [facility] Address [address] [place] [address] Care Team Providers Care Public Health Dietitian Name Role Phone Snow Velasquez MD Primary Care Provider [phone] Encounter Details Date Type Department Care Team Description 01/01/2018 Release of Information Medical Records [address] [place] [address] Abstract, Provider Social History Tobacco Use Types [...] on filedocumented in this encounter Care Teams Public Health Dietitian Relationship Specialty Start Date End Date Snow Velasquez MD [address] [place] [address] [phone] PCP - General Internal Medicine 03/10/17 documented as of this encounter
--- OUTSIDE RECORDS SUMMARY | 2025-08-01 09:24 | XMS_ITS | Encounter Summary ---
Author Organization [facility] Address [address] [place] [address] Care Team Providers Care Retail Furniture Sales Name Role Phone Snow Velasquez MD Primary Care Provider [phone] Encounter Details Date Type Department Care Team Description 05/17/2018 Release of Information Medical Records [address] [place] [address] Abstract, Provider Social History Tobacco Use Types [...] on filedocumented in this encounter Care Teams Retail Furniture Sales Relationship Specialty Start Date End Date Snow Velasquez MD [address] [place] [address] [phone] PCP - General Internal Medicine 03/10/17 documented as of this encounter
--- OUTSIDE RECORDS SUMMARY | 2025-08-01 09:24 | XMS_ITS | Encounter Summary ---
Author Organization [facility] Address [address] [place] [address] Care Team Providers Care Accounting Tutor Name Role Phone Villa Renee MD Primary Care Provider Miroslava Snow Monahan MD Primary Care Provider [phone] Encounter Details Date Type Department Care Team Description 1977 Style Advisor Report Medical Records [address] [place] [address] Valdemar Reynoso PA-C Social History Tobacco Use [...] filedocumented in this encounter Care Teams Accounting Tutor Relationship Specialty Start Date End Date Villa Renee MD PCP - General Internal Medicine 03/04/17 7 Snow Velasquez MD [address] [place] [address] [phone] PCP - General Internal Medicine 03/10/17 documented as of this encounter
--- OUTSIDE RECORDS SUMMARY | 2025-08-01 09:24 | XMS_ITS | Encounter Summary ---
Author Organization [email or web address] [facility] Address [address] [place] [address] Care Team Providers Care Correctional Maintenance Technician Name Role Phone Snow Velasquez MD Primary Care Provider [phone] Encounter Details Date Type Department Care Team Description 06/06/2020 Car Icer Report Medical Records [address] [place] [phone] Jimmie Raza MD Social History Tobacco Use Types Packs/Day [...] on filedocumented in this encounter Care Teams Correctional Maintenance Technician Relationship Specialty Start Date End Date Snow Velasquez MD [address] [place] [address] PCP - General Internal Medicine 03/10/17 documented as of this encounter
--- OUTSIDE RECORDS SUMMARY | 2025-08-01 09:24 | XMS_ITS | Encounter Summary ---
Author Organization [employer] [facility] Address [address] [place] [address] Care Team Providers Care Fitness And Wellness Manager Name Role Phone Snow Velasquez MD Primary Care Provider [phone] Encounter Details Date Type Department Care Team Description 08/03/2022 Hydrology Teacher Report Medical Records [address] [place] [address] Shekhar Haddad MD Social History Tobacco Use [...] on filedocumented in this encounter Care Teams Fitness And Wellness Manager Relationship Specialty Start Date End Date Snow Velasquez MD [address] [place] [address] PCP - General Internal Medicine 03/10/17 documented as of this encounter
--- OUTSIDE RECORDS SUMMARY | 2025-08-01 09:24 | XMS_ITS | Encounter Summary ---
Author Organization [employer] [facility] Address [address] [place] [address] Care Team Providers Care Glass Sander Belt Name Role Phone Snow Velasquez MD Primary Care Provider [phone] Encounter Details Date Type Department Care Team Description 01/10/2019 Hospital Medical Records [address] [place] [phone] Lillian Cruz MD [address] [place] [address] [phone] Social History Tobacco Use Types Packs/Day Years [...] on filedocumented in this encounter Care Teams Glass Sander Belt Relationship Specialty Start Date End Date Snow Velasquez MD [address] [place] [address] PCP - General Internal Medicine 03/10/17 documented as of this encounter
--- OUTSIDE RECORDS SUMMARY | 2025-08-01 09:24 | XMS_ITS | Encounter Summary ---
Author Organization [facility] Address [address] [place] [address] Care Team Providers Care Graphite Pan Drier Tender Name Role Phone Snow Velasquez MD Primary Care Provider [phone] Reason for Visit * Reason Comments E-prescribe Rx Request Encounter Details Date Type Department Care Team Description 07/11/2020 Refill Adult Medicine [address] [phone] Snow Velasquez MD [address] [place] [address] [phone] E-prescribe Rx Request Social History Tobacco Use [...] Telephone Encounter - Radha Sheth M.A. - 07/11/2020 2:33 PM EDT Next office visit 08/13/20 * Telephone Encounter - Gudelia Enriquez M.A. - 07/11/2020 10:53 AM EDT Lab Results Component Value Date NA 138 09/25/2019 K 3.8 09/25/2019 CO2 29 09/25/2019 CL 105 09/25/2019 BUN 19 09/25/2019 CREAT 1.02 09/25/2019 GLU 95 09/25/2019 CA 9.3 09/25/2019 GFR > 60 09/25/2019 Last appt with pcp 07/11/2019 * Telephone Encounter - Francescakitty Ward - 07/11/2020 9:54 AM EDT Patient would like script to be: E-PRESCRIBED/FAXED TO PHARMACY WHEN WAS THE PATIENT'S LAST APPOINTMENT IN ADULT MEDICINE? 09/27/19 WHEN WAS THE LAST TIME THE PATIENT SAW THEIR PCP? Same as above Does patient have an upcoming appointment? Patient was sent a My Chart request to set up an appointment as they are due. (THE MEDICATION REQUESTED IS ON THE MED [...] N/A Patients current insurance carrier is: Payor: [employer] FFS / Plan: [employer] / Product Type: MEDICAID RISK documented in this encounter Plan of Treatment Not on file documented as of this encounter Visit Diagnoses Not on filedocumented in this encounter Care Teams Graphite Pan Drier Tender Relationship Specialty Start Date End Date Snow Velasquez MD [address] [place] [address] PCP - General Internal Medicine 03/10/17 documented as of this encounter
== END 2025-08-01 09:06 | disposition home or self-care (01) ==
LOC: HO.HGS 08:48
DX: Z98.890 Other specified postprocedural states (principal); Z87.2 Personal history of diseases of the skin and subcutaneous tissue
CPT/HCPCS: 99213

== ENCOUNTER 2025-08-06 10:25 | Outpatient (AMB) | payer OTHER, SELFPAY ==
[2025-08-06 10:27] VITALS: BP 112/74; PULSE 74; TEMP 36.1; O2SAT 98; BMI 28.2
--- NOTE | 2025-08-06 10:27 | A.OFFPC_ITS ---
Vital Signs 08/06/25 10:27 Height 5 ft 6 in Weight 174 lb 8 oz BMI 28.2 BP 112/74 Blood Pressure Location Lt brachial Position Sitting Pulse 74 Pulse Source Pulse Oximeter Temp 97.0 F Temp Source Temporal Artery Scan Pulse Oximetry (%) 98 Oxygen Delivery Method Room Air Intake Visit Reasons: f/u HLD Allergies No Known Allergies (No Known Allergies*) Allergy (Verified 08/06/25 10:38) Medication List - Last Reconciled 08/06/25 by Lynn Sarkar PA-C atorvastatin (Lipitor) 10 mg PO BEDTIME cane As directed cholecalciferol (vitamin D3) (Vitamin D3) 50 mcg PO DAILY clonazepam 0.5 mg PO BID PRN cyclobenzaprine 10 mg PO TID PRN fluticasone propionate 50 mcg/actuation 2 sprays intranasal DAILY lidocaine 5% topical DAILY PRN magnesium oxide 400 mg PO BEDTIME 30 days omeprazole 20 mg PO DAILY ondansetron 4 - 8 mg (1 - 2 x 4 mg) PO Q4-6H PRN 30 days MDD 4 tabs NS oxycodone-acetaminophen 5-325 mg 1 tab PO QID PRN propranolol ER 60 mg PO BEDTIME 30 days [quad cane As directed] riboflavin (vitamin B2) 400 mg PO DAILY 30 days sumatriptan succinate 50 - 100 mg orally at onset of headache, may repeat in 2 hrs PRN; max 2 tabs per day or 4 tabs/week (may take with Ibuprofen) 30 days tadalafil (Cialis) 5 mg PO DAILY triamcinolone acetonide 0.1% 1 appl topical DAILY zolpidem 10 mg PO BEDTIME PRN Tobacco use date assessed: 08/06/25 Dental Screening Dental Screen Date: 08/06/25 Did you have a dental visit in the last 12 months?: No Did you have a dental problem in the last 6 months where you did not have access to dental care?: No Was dental information given to patient?: No HPI f/u HLD HPI Details 49-year-old male with past medical histo ry of anxiety, fatty liver disease, bipolar disorder, PTSD, hypercholesterolemia, GERD, fibromyalgia, obstructive sleep apnea and vitamin-D deficiency last seen 04/2025 coming in for follow up. In review of the notes, patient was seen by general surgery for excision of cyst doing well post op. Seen by neurology 06/2025 for migraine headache continued on sumatriptan, propranolol, magnesium and Riboflavin. Presenting with management of migraines, dizziness, balance issues, vision problems, and hyperlipidemia. The patient experiences daily migraines with partial relief from medications. Associated symptoms include dizziness and lightheadedness. The patient reports worsening dizziness and frequent balance loss, impacting daily activities such as driving and walking. The patient requires two prescriptions for contact lenses and reports persistent vision issues despite correction, contributing to dizziness. The patient is on atorvastatin, with improved LDL cholesterol levels from 169 to 118 mg/dL. The patient experiences acid reflux with uncertain relief from omeprazole, considering alternative treatment. [facility] Medical History Skin lesion Epidermal inclusion cyst Family history of brain tumor Surgical History Hx of surgical procedure (07/18/25) Family History Father Pancreatic cancer Mother Ovarian cancer Maternal Grandfather Stomach cancer Social History Housing: Apartment Alcohol intake: current Alcohol type: beer Patient Tobacco Use Status: Current someday Tobacco user (once per month ) Tobacco use type: Cigar e-Cigarette/Vaping Use: Never Used Second Hand Smoke Exposure: Yes Substance Use Type: Marijuana service: No Current occupational status: unemployed Cognitive needs: Yes (Cane) Hearing needs: No Vision needs: Yes (Glasses) Questionnaire PHQ-9 Over the last 2 weeks, how often have you been bothered by any of the following problems? 1. Little interest or pleasure in doing things: nearly every day 2. Feeling down, depressed, or hopeless: nearly every day 3. Trouble falling or staying asleep, or sleeping too much: nearly every day 4. Feeling tired or having little energy: nearly every day 5. Poor appetite or overeating: nearly every day 6. Feeling bad about yourself - or that you are a failure or have let yourself or your family down: nearly every day 7. Trouble concentrating on things, such as reading the newspaper or watching television: nearly every day 8. Moving or speaking so slowly that other people could have noticed. Or the opposite - being so fidgety or restless that you have been moving around a lot more than usual: nearly every day 9. Thoughts that you would be better off or of hurting yourself in some way: nearly every day Total score: 27 Depression Screening Interpretation: Positive Depression Screening Follow-up: Existing condition and In treatment Depression Screening Done: Yes Source: Developed by Drs. Dallin Bustamante, Alyssia Blanco, Martin Rodrigez and colleagues, with an educational jeremiah from [employer] Thrive Questionnaire Date Thrive assessed: 04/25/25 I am a: Patient What is your living situation today?: I have a steady place to live Within the past 12 months, did the food you bought not last and you didn't have the money to get more?: Sometimes True Within the past 12 months, did you worry whether your food would run out before you got money to buy more?: Sometimes True Do you have trouble paying for medicines?: Yes Do you have trouble getting transportation to medical appointments?: No Do you have trouble paying your heating and electricity bill?: No Do you have trouble taking care of your child, family member or friend?: No Do you have trouble with day-to-day activities such as bathing, preparing meals, shopping, managing finances, etc.?: No Are you currently unemployed and looking for a job?: No Are you interested in more education?: No Currently or been in a relationship where the following occur: I choose not to answer THRIVE Score: 2 AUDIT C Alcohol Use Questionnaire (AUDIT-C) 1. How often do you have a drink containing alcohol?: 2-4 times a month 2. How many drinks containing alcohol do you have on a typical day when you are drinking?: 1 or 2 3. How often do you have six or more drinks on one occasion?: Never Total Score: 2 LUZ MARIA-7 AMB Questionnaire LUZ MARIA-7 Date LUZ MARIA - 7 assessed: 04/25/25 Feeling nervous, anxious, or on edge: 3 = Nearly every day Not being able to stop or control worryin = Nearly every day Worrying too much about different things: 3 = Nearly every day Trouble relaxin = Nearly every day Being so restless that it is hard to sit still: 3 = Nearly every day Becoming easily annoyed or irritable: 3 = Nearly every day Feeling afraid as if something awful might happen: 3 = Nearly every day Total LUZ MARIA-7 score (0-4 normal; 5-9 mild; 10-14 moderate; 15-21 severe): 21 Source: Developed by Drs. Dallin Bustamante, Alyssia Blanco, Martin Rodrigez and colleagues, with an educational jeremiah from [employer] Review of Systems Const Denies body aches, Denies chills, Denies fever(s), Reports headache(s) and Denies poor appetite Eyes Reports no additional complaints ENT Denies dizziness, Reports headache(s) and Denies odynophagia Card Denies chest pain, Denies syncope, Denies edema, Denies irregular heart rhythm, Reports lightheadedness and Denies dyspnea Resp Denies cough and Denies dyspnea GI Denies abdominal pain, Reports dyspepsia, Reports heartburn, Denies diarrhea, Denies nausea, Denies odynophagia and Denies vomiting Reports no additional complaints Musc Reports back pain Skin/Breast Reports system reviewed and no additional complaints, except as documented Neuro Denies dizziness, Denies syncope and Reports headache(s) Psych Reports no additional complaints Physical exam (Primary Care) Vital Signs: Last Vital Signs Temp 97.0 F 08/06/25 10:27 Pulse 74 08/06/25 10:27 BP 112/74 08/06/25 10:27 Pulse Ox 98 08/06/25 10:27 Oxygen Delivery Method Room Air 08/06/25 10:27 BMI result Body Mass Index 28.2 Tobacco/Smoking Status: Tobacco use Status Tobacco use date assessed 08/06/25 08/06/25 10:32 Patient Tobacco Use Status Current someday Tobacco ( 08/06/25 10:32 once per month ) Tobacco use type Cigar 08/06/25 10:32 e-Cigarette/Vaping Use Never Used 08/06/25 10:32 PHQ-9: PHQ-9 Score PHQ-9: Total score 27 08/06/25 13:43 Depression Screening Interpretation: Positive Depression Screening Follow-up: Existing condition and In treatment Thrive Assessment: Date of Thrive Assessment Date Thrive assessed 04/25/25 08/06/25 10:32 Currently or been in a relationship where the following occur: I choose not to answer Const General: cooperative, healthy appearing, comfortable and no acute distress Orientation/consciousness: patient oriented x3 HENMT Head: Yes normocephalic Ears: hearing grossly normal bilaterally General nose exam: Normal external nose present Eyes General: appearance normal, both eyes and all related structures Conjunctivae: conjunctivae normal Neck Neck: Yes full ROM and Yes no lymphadenopathy Resp Effort & Inspection: normal respiratory effort Auscultation: clear to auscultation bilaterally, no crackles, no rales, no rhonchi and no wheezes Cardio Rate: regular rate Rhythm: regular rhythm Back/Spine/Pelvis Other: Right flank tenderness Skin General skin exam: no rashes or lesions noted Neuro General: patient oriented x3 Gait exam (Neuro): Normal gait present Extrem General: Yes normal to inspection, Yes full ROM and No edema Psych Affect: normal affect Attitude: cooperative Insight: Good insight present (Psych) Judgement: Good judgement present (Psych) Coding Level of Care Code Est Pt Level 3 (01506) Diagnoses Anxiety F41.9 Hypercholesterolemia E78.00 GERD (gastroesophageal reflux disease) K21.9 Elevated LFTs R79.89 Frequent headaches R51.9 Vision changes H53.9 Low back pain M54.50 Assessment & Plan Assessment & Plan (1) Anxiety: Comment: [facility] weekly Code(s): F41.9 - Anxiety disorder, unspecified Category: Medical Plan: on Buspar, Klonipin, Lurasidone and currently following with [facility] weekly. (2) Hypercholesterolemia: Code(s): E78.00 - Pure hypercholesterolemia, unspecified Category: Medical Plan: Avoid foods that are high in cholesterol such as red meat, fried foods, eggs and baked goods. Triglyceride goal of less than 150 and LDL goal of less than 130. LDL significantly improved on last labs since starting Atorvastatin 10 mg. Keep on medication and continue to monitor. (3) GERD (gastroesophageal reflux disease): Code(s): K21.9 - Gastro-esophageal reflux disease without esophagitis Category: Medical Plan: Avoid trigger foods such as citrus, tomato products, soda, caffeine, spicy foods and other foods that may be irritating to your stomach. Avoid laying flat 3-4 hours after eating and elevate the head of the bed 30 degrees to prevent acid from moving into the esophagus. Plan to trial Famotidine daily. (4) Elevated LFTs: Code(s): R79.89 - Other specified abnormal findings of blood chemistry Category: Medical Plan: LFTs improved on blood work. Patient previously diagnosed with fatty liver disease through ultrasound at last PCP. Healthy diet and regular exercise is encouraged. (5) Frequent headaches: Code(s): R51.9 - Headache, unspecified Category: Medical Plan: The patient will continue with current migraine medications, although they provide only partial relief. Follow-up with neurology is scheduled to reassess treatment efficacy and explore alternative therapies if necessary. (6) Vision changes: Code(s): H53.9 - Unspecified visual disturbance Category: Medical Plan: He will continue to follow with eye doctor at this time and recommend following up with them sooner than his yearly given his prescription may not be up-to-date (7) Low back pain: Code(s): M54.50 - Low back pain, unspecified Category: Medical Plan: Patient complaining of right flank pain plan to obtain urinalysis. He was unable to provide a sample in the office and was given a cup to bring home. Consider additional imaging pending blood work evaluation Plan During the visit, we discussed the management of migraines, dizziness, and balance issues, emphasizing the importance of follow-up with neurology and vision care. We reviewed the patient's cholesterol management, noting the improvement with atorvastatin. We also addressed the patient's concerns about back pain and acid reflux, recommending a switch to famotidine. The patient was advised to continue therapy for depression and PTSD, with a focus on medication review and therapy sessions. This note was constructed using voice recognition software. While every effort has been made to ensure accuracy and information security analyst, still areas may have been included sometimes these areas may affect the content or meeting of the given symptoms. Total time spent caring for the patient today was 30 minutes. This includes time spent before the visit reviewing the chart, time spent during the visit, and time spent after the visit and documentation. Patient was informed and verbally consented to the use of an ambient scribe for clinic note documentation during this visit. Orders: Orders Lipid Panel 6 Months E78.00 - Pure hypercholesterolemia, unspecified Comprehensive Met. Panel 6 Months K76.0 - Fatty (change of) liver, not elsewhere classified Hemoglobin A1c 6 Months E78.00 - Pure hypercholesterolemia, unspecified, K76.0 - Fatty (change of) liver, not elsewhere classified UA CC w/rflx Micro + Cult Today R35.89 - Other polyuria Medications: New famotidine 20 mg PO BEDTIME 90 tabs 0RF Refilled cholecalciferol (vitamin D3) (Vitamin D3) 50 mcg PO DAILY 90 tabs 2RF Discontinued omeprazole Discontinued Reason: Patient no longer taking 20 mg PO DAILY 90 caps 2RF
--- OUTSIDE RECORDS SUMMARY | 2025-08-06 12:15 | XMS_ITS | Clinical Summary ---
Author Organization [facility] Address [address] [place] [address] Phone Care Team Providers Care Marker Delivery Name Role Phone Snow Velasquez MD Primary Care Provider Allergies Active Allergy Reactions Criticality Noted Date [...] 03/08/2017 Recurrent major depressive disorder (CMS/[facility] V24 ) 03/08/2017 Encounters Date Type Department Care Team Description 05/14/2025 2:15 PM EDT Office Visit Pulmonology - [address] [place] [address] Simba Raymond MD MARQUIS (obstructive [...] 1:15 PM EST Office Visit Pulmonology - [place] [address] [facility] [address] [place] [phone] Simba Raymond MD [address] [facility] [address] [place] [address] Health Maintenance Due Date Last Done Comments [...] Most Recently Relevant to Health Maintenance Insurance [facility] Care Teams Marker Delivery Relationship Specialty Start Date End Date Snow Velasquez MD [address] [place] [address] PCP - General Internal Medicine 03/10/17
--- OUTSIDE RECORDS SUMMARY | 2025-08-06 12:15 | XMS_ITS | Clinical Summary ---
Author Organization [facility] Address [address] [place] [address] Care Team Providers Care Welt Wheeler Name Role Phone Snow Velasquez MD Primary Care Provider [phone] Allergies No known active allergies Medications Medication [...] age to complete this topic Care Teams Welt Wheeler Relationship Specialty Start Date End Date Snow Velasquez MD PCP - General Internal Medicine 11/24/23
== END 2025-08-06 11:23 | disposition home or self-care (01) ==
LOC: HO.HMCH 10:26
DX: F41.9 Anxiety disorder, unspecified (principal); E78.00 Pure hypercholesterolemia, unspecified; K21.9 Gastro-esophageal reflux disease without esophagitis; R79.89 Other specified abnormal findings of blood chemistry; R51.9 Headache, unspecified; H53.9 Unspecified visual disturbance; M54.50 Low back pain, unspecified

== ENCOUNTER → 2025-08-06 10:25 | Outpatient (BNVA) | payer OTHER, SELFPAY | DX: F41.9 Anxiety disorder, unspecified (principal); E78.00 Pure hypercholesterolemia, unspecified; K21.9 Gastro-esophageal reflux disease without esophagitis; R79.89 Other specified abnormal findings of blood chemistry; R51.9 Headache, unspecified; H53.9 Unspecified visual disturbance; M54.50 Low back pain, unspecified; Z79.899 Other long term (current) drug therapy; Z13.31 Encounter for screening for depression | CPT/HCPCS: 99212 ==

== ENCOUNTER 2025-08-08 10:56 | Outpatient (REF) | payer OTHER, SELFPAY ==
[2025-08-08 11:30] LABS: Appearance Urine Cloudy; Glucose Urine UA Negative (Negative); PH 6.5 (5.0-9.0); Specific Gravity - Urine 1.020 (1.005-1.025)
--- OUTSIDE RECORDS SUMMARY | 2025-08-08 14:32 | XMS_ITS | Encounter Summary ---
Author Organization [employer] [facility] Address [address] [place] [address] Care Team Providers Care Special Events Planner Name Role Phone Snow Velasquez MD Primary Care Provider [phone] Encounter Details Date Type Department Care Team Description 11/09/2019 [facility] Medical Records [address] [place] [phone] Abstract, Provider Social History Tobacco Use Types [...] on filedocumented in this encounter Care Teams Special Events Planner Relationship Specialty Start Date End Date Snow Velasquez MD [address] [place] [address] [phone] PCP - General Internal Medicine 03/10/17 documented as of this encounter
--- OUTSIDE RECORDS SUMMARY | 2025-08-08 14:32 | XMS_ITS | Encounter Summary ---
Author Organization [facility] Address [address] [place] [address] Care Team Providers Care Artist Manager Name Role Phone Snow Velasquez MD Primary Care Provider [phone] Reason for Visit * Reason Comments E-prescribe Rx Request Encounter Details Date Type Department Care Team Description 10/24/2021 Refill Physiatry - [place] [address] [place] [address] [phone] Valdemar Reynoso PA-C E-prescribe Rx Request Social [...] on filedocumented in this encounter Care Teams Artist Manager Relationship Specialty Start Date End Date Snow Velasquez MD [address] [place] [address] PCP - General Internal Medicine 03/10/17 documented as of this encounter
--- OUTSIDE RECORDS SUMMARY | 2025-08-08 14:32 | XMS_ITS | Encounter Summary ---
Author Organization [employer] [facility] Address [address] [place] [address] Care Team Providers Care Delivery Professional Name Role Phone Snow Velasquez MD Primary Care Provider [phone] Reason for Visit * Reason Comments E-prescribe Rx Request Encounter Details Date Type Department Care Team Description 10/27/2019 Refill Gastroenterology - [place] [address] [facility] [address] [place] [address] Ritesh Escamilla PA-C E-prescribe Rx [...] on filedocumented in this encounter Care Teams Delivery Professional Relationship Specialty Start Date End Date Snow Velasquez MD [address] [place] [address] [phone] PCP - General Internal Medicine 03/10/17 documented as of this encounter
--- OUTSIDE RECORDS SUMMARY | 2025-08-08 14:32 | XMS_ITS | Encounter Summary ---
Author Organization [employer] [facility] Address [address] [place] [address] Care Team Providers Care Bookkeeping Teacher Name Role Phone Snow Velasquez MD Primary Care Provider [phone] Encounter Details Date Type Department Care Team Description 11/07/2019 Refill Physiatry - [place] [address] [place] [address] [phone] Valdemar Reynoso PA-C Social History Tobacco Use [...] on filedocumented in this encounter Care Teams Bookkeeping Teacher Relationship Specialty Start Date End Date Snow Velasquez MD [address] [place] [address] PCP - General Internal Medicine 03/10/17 documented as of this encounter
--- OUTSIDE RECORDS SUMMARY | 2025-08-08 14:32 | XMS_ITS | Encounter Summary ---
Author Organization [facility] Address [address] [place] [address] Care Team Providers Care Production Welder Name Role Phone Snow Velasquez MD Primary Care Provider [phone] Reason for Visit * Reason Comments E-prescribe Rx Request Encounter Details Date Type Department Care Team Description 08/16/2019 Refill Adult Medicine [address] [phone] Christin Hung NP E-prescribe Rx Request Social [...] N/A Patients current insurance carrier is: Payor: [employer] FFS / Plan: [employer] / Product Type: MEDICAID RISK documented in this encounter Plan of Treatment Not on file documented as of this encounter Visit Diagnoses Not on filedocumented in this encounter Care Teams Production Welder Relationship Specialty Start Date End Date Snow Velasquez MD [address] [place] [address] PCP - General Internal Medicine 03/10/17 documented as of this encounter
--- OUTSIDE RECORDS SUMMARY | 2025-08-08 14:32 | XMS_ITS | Encounter Summary ---
Author Organization [facility] Address [address] [place] [address] Care Team Providers Care Professor Of Environmental Engineering Name Role Phone Snow Velasquez MD Primary Care Provider [phone] Reason for Visit * Reason Comments E-prescribe Rx Request Encounter Details Date Type Department Care Team Description 01/27/2022 Refill Adult Medicine [facility] [address] [place] [address] Aditi SnowdenFORM[facility]LY [facility] [address] [place] [address] E-prescribe Rx Request Social History Tobacco Use [...] suspected to have Coronavirus/COVID-19? No / Unsure 01/26/2022 1:47 PM EDT documented as of this encounter Miscellaneous Notes * Telephone Encounter - Gudelia Enriquez M.A. - 02/02/2022 2:52 PM EDT Resent 90 day supply, previous was #30 days with 5 refills * Telephone Encounter - Shamika Chou - 02/02/2022 2:28 PM EDT Patient would like script to be: E-PRESCRIBED/FAXED TO PHARMACY WHEN WAS THE PATIENT'S LAST APPOINTMENT IN ADULT MEDICINE? 01/26/22 WHEN WAS THE LAST TIME THE PATIENT SAW THEIR PCP? 09/24/21 Does patient have an upcoming appointment? Yes 05/20/22 (THE MEDICATION REQUESTED IS ON THE MED [...] N/A Patients current insurance carrier is: Payor: [employer] / Plan: [employer] / Product Type: MEDICAID RISK documented in this encounter Plan of Treatment Not on file documented as of this encounter Visit Diagnoses Not on filedocumented in this encounter Care Teams Professor Of Environmental Engineering Relationship Specialty Start Date End Date Snow Velasquez MD [address] [place] [address] PCP - General Internal Medicine 03/10/17 documented as of this encounter
--- OUTSIDE RECORDS SUMMARY | 2025-08-08 14:33 | XMS_ITS | Encounter Summary ---
Author Organization [facility] Address [address] [place] [address] Care Team Providers Care Combination Machine Tool Operator Name Role Phone Villa Renee MD Primary Care Provider Miroslava Snow Monahan MD Primary Care Provider [phone] Encounter Details Date Type Department Care Team Description 1975 Barkeeper Report Medical Records [address] [place] [address] Valdemar Reynoso PA-C Social History Tobacco Use [...] on filedocumented in this encounter Care Teams Combination Machine Tool Operator Relationship Specialty Start Date End Date Villa Renee MD PCP - General Internal Medicine 03/04/17 7 Snow Velasquez MD [address] [place] [address] [phone] PCP - General Internal Medicine 03/10/17 documented as of this encounter
--- OUTSIDE RECORDS SUMMARY | 2025-08-08 14:33 | XMS_ITS | Encounter Summary ---
Author Organization [facility] Address [address] [place] [address] Care Team Providers Care Helium Arc Welder Name Role Phone Snow Velasquez MD Primary Care Provider [phone] Encounter Details Date Type Department Care Team Description 01/10/2019 Hospital Medical Records [address] [place] [address] Lillian Cruz MD [address] [place] [address] [phone] Social History Tobacco Use Types Packs/Day Years [...] on filedocumented in this encounter Care Teams Helium Arc Welder Relationship Specialty Start Date End Date Snow Velasquez MD [address] [place] [address] PCP - General Internal Medicine 03/10/17 documented as of this encounter
--- OUTSIDE RECORDS SUMMARY | 2025-08-08 14:33 | XMS_ITS | Encounter Summary ---
Author Organization [facility] Address [address] [place] [address] Care Team Providers Care Gore Stitcher Name Role Phone Snow Velasquez MD Primary Care Provider Encounter Details Date Type Department Care Team Description 12/29/2023 Sheet Tailer Report Medical Records [address] [place] [address] Valdemar Reynoso PA-C Social History Tobacco Use [...] on filedocumented in this encounter Care Teams Gore Stitcher Relationship Specialty Start Date End Date Snow Velasquez MD [address] [place] [address] [phone] PCP - General Internal Medicine 03/10/17 documented as of this encounter
--- OUTSIDE RECORDS SUMMARY | 2025-08-08 14:33 | XMS_ITS | Encounter Summary ---
Author Organization [employer] [facility] Address [address] [place] [address] Care Team Providers Care Vice President Of Customer Service Name Role Phone Snow Velasquez MD Primary Care Provider [phone] Encounter Details Date Type Department Care Team Description 04/06/2023 Fleet Manager Report Medical Records [address] [place] [address] Valdemar Reynoso PA-C Social History Tobacco Use [...] on filedocumented in this encounter Care Teams Vice President Of Customer Service Relationship Specialty Start Date End Date Snow Velasquez MD [address] [place] [address] [phone] PCP - General Internal Medicine 03/10/17 documented as of this encounter
--- OUTSIDE RECORDS SUMMARY | 2025-08-08 14:33 | XMS_ITS | Encounter Summary ---
Author Organization [facility] Address [address] [place] [address] Care Team Providers Care Instructor Business Education Name Role Phone Snow Velasquez MD Primary Care Provider [phone] Reason for Visit * Reason Onset Date Comments Mychart Rx Refill 01/09/2019 Encounter Details Date Type Department Care Team Description 01/09/2019 Refill Adult Medicine [address] [phone] Snow Velasquez MD [address] [place] [address] [phone] Mychart Rx Refill Social History Tobacco Use [...] MG Cap [Snow Velasquez MD] Preferred pharmacy: [address] Comment: documented in this encounter Plan of Treatment Not on file documented as of this encounter Visit Diagnoses Not on filedocumented in this encounter Care Teams Instructor Business Education Relationship Specialty Start Date End Date Snow Velasquez MD [address] [place] [address] PCP - General Internal Medicine 03/10/17 documented as of this encounter
--- OUTSIDE RECORDS SUMMARY | 2025-08-08 14:33 | XMS_ITS | Clinical Summary ---
Author Organization [facility] Address [address] [place] [address] Care Team Providers Care Chair Frame Builder Name Role Phone Snow Velasquez MD Primary Care Provider [phone] Allergies No known active allergies Medications Medication [...] age to complete this topic Care Teams Chair Frame Builder Relationship Specialty Start Date End Date Snow Velasquez MD PCP - General Internal Medicine 11/24/23
--- OUTSIDE RECORDS SUMMARY | 2025-08-08 14:33 | XMS_ITS | Encounter Summary ---
Author Organization [employer] [facility] Address [address] [place] [address] Care Team Providers Care Seismic Observer Name Role Phone Snow Velasquez MD Primary Care Provider [phone] Encounter Details Date Type Department Care Team Description 01/13/2019 Orders Only Medical Records [address] [place] [address] Lillian Curz MD [address] [place] [address] Social History Tobacco Use Types Packs/Day [...] on filedocumented in this encounter Care Teams Seismic Observer Relationship Specialty Start Date End Date Snow Velasquez MD [address] [place] [address] PCP - General Internal Medicine 03/10/17 documented as of this encounter
--- OUTSIDE RECORDS SUMMARY | 2025-08-08 14:33 | XMS_ITS | Encounter Summary ---
Author Organization [facility] Address [address] [place] [address] Care Team Providers Care Retort Loader Name Role Phone Snow Velasquez MD Primary Care Provider [phone] Encounter Details Date Type Department Care Team Description 07/10/2024 Energy Risk Management Analyst Report Medical Records [address] [place] [address] Valdemar Reynoso PA-C Social History Tobacco Use [...] on filedocumented in this encounter Care Teams Retort Loader Relationship Specialty Start Date End Date Snow Velasquez MD [address] [place] [address] [phone] PCP - General Internal Medicine 03/10/17 documented as of this encounter
--- OUTSIDE RECORDS SUMMARY | 2025-08-08 14:33 | XMS_ITS | Encounter Summary ---
Author Organization [facility] [facility] Address [address] [place] [address] Care Team Providers Care Inspector Wire Products Name Role Phone Snow Velasquez MD Primary Care Provider [phone] Encounter Details Date Type Department Care Team Description 02/21/2024 Road Roller Operator Hot Mix Report Medical Records [address] [place] [address] Tru Oates DO Social History Tobacco Use [...] on filedocumented in this encounter Care Teams Inspector Wire Products Relationship Specialty Start Date End Date Snow Velasquez MD [address] [place] [address] [phone] PCP - General Internal Medicine 03/10/17 documented as of this encounter
--- OUTSIDE RECORDS SUMMARY | 2025-08-08 14:33 | XMS_ITS | Encounter Summary ---
Author Organization [facility] [facility] Address [address] [place] [address] Care Team Providers Care Business Leader Name Role Phone Snow Velasquez MD Primary Care Provider Encounter Details Date Type Department Care Team Description 07/06/2023 Slag Worker Report Medical Records [address] [place] [address] Booker Hendrickson, PAFeliciaC Social History Tobacco Use [...] on filedocumented in this encounter Care Teams Business Leader Relationship Specialty Start Date End Date Snow Velasquez MD [address] [place] [address] PCP - General Internal Medicine 03/10/17 documented as of this encounter
--- OUTSIDE RECORDS SUMMARY | 2025-08-08 14:33 | XMS_ITS | Encounter Summary ---
Author Organization [employer] [facility] Address [address] [place] [address] Care Team Providers Care Assembler Liquid Center Name Role Phone Snow Velasquez MD Primary Care Provider [phone] Encounter Details Date Type Department Care Team Description 07/29/2023 Statistical Analyst Report Medical Records [address] [place] [address] Alisa Zepeda PA-C Social History Tobacco Use [...] on filedocumented in this encounter Care Teams Assembler Liquid Center Relationship Specialty Start Date End Date Snow Velasquez MD [address] [place] [address] PCP - General Internal Medicine 03/10/17 documented as of this encounter
--- OUTSIDE RECORDS SUMMARY | 2025-08-08 14:33 | XMS_ITS | Encounter Summary ---
Author Organization [facility] Address [address] [place] [address] Care Team Providers Care Fast Food Attendant Name Role Phone Snow Velasquez MD Primary Care Provider [phone] Encounter Details Date Type Department Care Team Description 12/11/2020 Grain Spouter Report Medical Records [address] [place] [address] Shekhar Saavedra MD Social History Tobacco Use [...] on filedocumented in this encounter Care Teams Fast Food Attendant Relationship Specialty Start Date End Date Snow Velasquez MD [address] [place] [address] PCP - General Internal Medicine 03/10/17 documented as of this encounter
--- OUTSIDE RECORDS SUMMARY | 2025-08-08 14:33 | XMS_ITS | Encounter Summary ---
Author Organization [employer] [facility] Address [address] [place] [address] Care Team Providers Care Experimental Welder Name Role Phone Snow Velasquez MD Primary Care Provider [phone] Encounter Details Date Type Department Care Team Description 10/29/2023 Orders Only Medical Records [address] [place] [address] Darwin Guan Social History Tobacco Use Types [...] on filedocumented in this encounter Care Teams Experimental Welder Relationship Specialty Start Date End Date Snow Velasquez MD [address] [place] [address] PCP - General Internal Medicine 03/10/17 documented as of this encounter
--- OUTSIDE RECORDS SUMMARY | 2025-08-08 14:33 | XMS_ITS | Encounter Summary ---
Author Organization [employer] [facility] Address [address] [place] [address] Care Team Providers Care Polygraph Operator Name Role Phone Snow Velasquez MD Primary Care Provider [phone] Reason for Visit * Reason Comments E-prescribe Rx Request Encounter Details Date Type Department Care Team Description 08/04/2019 Refill Gastroenterology - [place] [address] [facility] [address] [place] [address] Eduard Ramirez MD E-prescribe Rx [...] on filedocumented in this encounter Care Teams Polygraph Operator Relationship Specialty Start Date End Date Snow Velasquez MD [address] [place] [address] [phone] PCP - General Internal Medicine 03/10/17 documented as of this encounter
--- OUTSIDE RECORDS SUMMARY | 2025-08-08 14:33 | XMS_ITS | Encounter Summary ---
Author Organization [facility] Address [address] [place] [address] Care Team Providers Care Bone Crusher Name Role Phone Snow Velasquez MD Primary Care Provider [phone] Encounter Details Date Type Department Care Team Description 05/24/2023 Track Laminating Machine Tender Report Medical Records [address] [place] [address] Tru Oates DO Social History Tobacco Use [...] on filedocumented in this encounter Care Teams Bone Crusher Relationship Specialty Start Date End Date Snow Velasquez MD [address] [place] [address] [phone] PCP - General Internal Medicine 03/10/17 documented as of this encounter
--- OUTSIDE RECORDS SUMMARY | 2025-08-08 14:34 | XMS_ITS | Clinical Summary ---
Author Organization [facility] Address [address] [place] [address] Phone Care Team Providers Care Physical Fitness Trainer Name Role Phone Snow Velasquez MD Primary Care Provider [phone] Allergies Active Allergy Reactions Criticality Noted Date [...] stress disorder) 03/08/2017 Recurrent major depressive disorder (CMS/[facility] V24 ) 03/08/2017 Encounters Date Type Department Care Team Description 05/14/2025 2:15 PM EDT Office Visit Pulmonology - [address] [place] [address] Simba Raymond MD MARQUIS (obstructive [...] 1:15 PM EST Office Visit Pulmonology - [place] [address] [facility] [address] [place] [phone] Simba Raymond MD [address] [facility] [address] [place] [address] Health Maintenance Due Date Last Done Comments [...] Most Recently Relevant to Health Maintenance Insurance [employer] Care Teams Physical Fitness Trainer Relationship Specialty Start Date End Date Snow Velasquez MD [address] [place] [address] PCP - General Internal Medicine 03/10/17
--- OUTSIDE RECORDS SUMMARY | 2025-08-08 14:34 | XMS_ITS | Encounter Summary ---
Author Organization [employer] [facility] Address [address] [place] [address] Care Team Providers Care Facilities Engineer Name Role Phone Snow Velasquez MD Primary Care Provider [phone] Encounter Details Date Type Department Care Team Description 12/24/2022 Cnc Milling Machinist Report Medical Records [address] [place] [address] Valdemar Reynoso PA-C Social History Tobacco Use [...] on filedocumented in this encounter Care Teams Facilities Engineer Relationship Specialty Start Date End Date Snow Velasquez MD [address] [place] [address] [phone] PCP - General Internal Medicine 03/10/17 documented as of this encounter
--- OUTSIDE RECORDS SUMMARY | 2025-08-08 14:34 | XMS_ITS | Encounter Summary ---
Author Organization [facility] Address [address] [place] [address] Care Team Providers Care Tailercpa Name Role Phone Snow Velasquez MD Primary Care Provider [phone] Encounter Details Date Type Department Care Team Description 11/09/2019 [facility] Medical Records [address] [place] [address] Abstract, Provider Social History Tobacco Use Types [...] on filedocumented in this encounter Care Teams Tailercpa Relationship Specialty Start Date End Date Snow Velasquez MD [address] [place] [address] [phone] PCP - General Internal Medicine 03/10/17 documented as of this encounter
--- OUTSIDE RECORDS SUMMARY | 2025-08-08 14:34 | XMS_ITS | Encounter Summary ---
Author Organization [employer] [facility] Address [address] [place] [address] Care Team Providers Care Lag Screwer Name Role Phone Snow Velasquez MD Primary Care Provider [phone] Encounter Details Date Type Department Care Team Description 06/29/2022 Hospital Medical Records [address] [place] [address] Social History Tobacco Use Types Packs/Day Years [...] on filedocumented in this encounter Care Teams Lag Screwer Relationship Specialty Start Date End Date Snow Velasquez MD [address] [place] [address] PCP - General Internal Medicine 03/10/17 documented as of this encounter
--- OUTSIDE RECORDS SUMMARY | 2025-08-08 14:34 | XMS_ITS | Encounter Summary ---
Author Organization [facility] Address [address] [place] [address] Care Team Providers Care General Maintenance Helper Name Role Phone Snow Velasquez MD Primary Care Provider [phone] Reason for Visit * Reason Comments E-prescribe Rx Request Encounter Details Date Type Department Care Team Description 07/30/2022 Refill Adult Medicine [address] [address] Roxi Mathew PA-C [address] [place] [address] E-prescribe Rx Request Social History Tobacco Use [...] N/A Patients current insurance carrier is: Payor: [facility] FFS / Plan: [facility] [employer] / Product Type: MEDICAID RISK documented in this encounter Plan of Treatment Not on file documented as of this encounter Visit Diagnoses Not on filedocumented in this encounter Care Teams General Maintenance Helper Relationship Specialty Start Date End Date Snow Velasquez MD [address] [place] [address] PCP - General Internal Medicine 03/10/17 documented as of this encounter
--- OUTSIDE RECORDS SUMMARY | 2025-08-08 14:34 | XMS_ITS | Encounter Summary ---
Author Organization [facility] Address [address] [place] [address] Care Team Providers Care Corrections Nurse Name Role Phone Snow Velasquez MD Primary Care Provider [phone] Encounter Details Date Type Department Care Team Description 08/03/2022 [address] Service Locksmith Report Medical Records [address] [place] [address] Shekhar Haddad MD Social History Tobacco Use [...] on filedocumented in this encounter Care Teams Corrections Nurse Relationship Specialty Start Date End Date Snow Velasquez MD [address] [place] [address] PCP - General Internal Medicine 03/10/17 documented as of this encounter
--- OUTSIDE RECORDS SUMMARY | 2025-08-08 14:34 | XMS_ITS | Encounter Summary ---
Author Organization [facility] Address [address] [place] [address] Care Team Providers Care Tapper Hand Name Role Phone Snow Velasquez MD Primary Care Provider [phone] Encounter Details Date Type Department Care Team Description 12/31/2022 Scrummaster Report Medical Records [address] [place] [address] Valdemar Reynoso PA-C Social History Tobacco Use [...] on filedocumented in this encounter Care Teams Tapper Hand Relationship Specialty Start Date End Date Snow Velasquez MD [address] [place] [address] [phone] PCP - General Internal Medicine 03/10/17 documented as of this encounter
--- OUTSIDE RECORDS SUMMARY | 2025-08-08 14:34 | XMS_ITS | Encounter Summary ---
Author Organization [facility] Address [address] [place] [address] Care Team Providers Care Newborn Hearing Screener Name Role Phone Snow Velasquez MD Primary Care Provider [phone] Reason for Visit * Reason Comments E-prescribe Rx Request Encounter Details Date Type Department Care Team Description 03/04/2020 Refill Physiatry - [place] [address] [place] [address] [phone] Valdemar Reynoso PA-C E-prescribe Rx Request Social [...] on filedocumented in this encounter Care Teams Newborn Hearing Screener Relationship Specialty Start Date End Date Snow Velasquez MD [address] [place] [address] [phone] PCP - General Internal Medicine 03/10/17 documented as of this encounter
--- OUTSIDE RECORDS SUMMARY | 2025-08-08 14:34 | XMS_ITS | Encounter Summary ---
Author Organization [employer] [facility] Address [address] [place] [address] Care Team Providers Care Digital Sales Representative Name Role Phone Snow Velasquez MD Primary Care Provider [phone] Reason for Visit * Reason Onset Date Comments refill request 03/06/2020 psyllium (RA FIB ER THERAPY) 0.52 g capsule Encounter Details Date Type Department Care Team Description 03/06/2020 Refill Gastroenterology - [place] [address] [facility] [address] [place] [phone] Ritesh Escamilla PA-C refill request (psyllium (RA [...] on filedocumented in this encounter Care Teams Digital Sales Representative Relationship Specialty Start Date End Date Snwo Velasquez MD [address] [place] [address] PCP - General Internal Medicine 03/10/17 documented as of this encounter
== END 2025-08-08 10:57 | disposition home or self-care (01) ==
LOC: HO.LNP 10:56
DX: G43.709 Chronic migraine without aura, not intractable, without status migrainosus (principal); H53.149 Visual discomfort, unspecified; R11.0 Nausea; F31.9 Bipolar disorder, unspecified; R35.89 Other polyuria; R79.89 Other specified abnormal findings of blood chemistry; Z79.899 Other long term (current) drug therapy
CPT/HCPCS: 81003; 99212

== ENCOUNTER 2025-08-08 15:52 | Outpatient (AMB) | payer OTHER, SELFPAY ==
[2025-08-08 15:59] VITALS: BP 110/80; PULSE 83; O2SAT 95; BMI 28.1
--- NOTE | 2025-08-08 15:59 | A.OFFVIS_ITS ---
Vital Signs 08/08/25 15:59 Height 5 ft 6 in Weight 174 lb BMI 28.1 BP 110/80 Blood Pressure Location Rt brachial Position Sitting Pulse 83 Pulse Source Pulse Oximeter Pulse Oximetry (%) 95 Oxygen Delivery Method Room Air Intake Visit Reasons: 2 Months F/U per Blunger Required: No Accompanied by: Self / Same As Patient Allergies No Known Allergies (No Known Allergies*) Allergy (Verified 08/08/25 16:05) Medication List - Last Reconciled 08/08/25 by MILLICENT Hankins atorvastatin (Lipitor) 10 mg PO BEDTIME cane As directed cholecalciferol (vitamin D3) (Vitamin D3) 50 mcg PO DAILY clonazepam 0.5 mg PO BID PRN cyclobenzaprine 10 mg PO TID PRN famotidine 20 mg PO BEDTIME fluticasone propionate 50 mcg/actuation 2 sprays intranasal DAILY lidocaine 5% topical DAILY PRN magnesium oxide 400 mg PO BEDTIME 30 days ondansetron 4 - 8 mg (1 - 2 x 4 mg) PO Q4-6H PRN 30 days MDD 4 tabs NS oxycodone-acetaminophen 5-325 mg 1 tab PO QID PRN propranolol ER 60 mg PO BEDTIME 30 days [quad cane As directed] riboflavin (vitamin B2) 400 mg PO DAILY 30 days sumatriptan succinate 50 - 100 mg orally at onset of headache, may repeat in 2 hrs PRN; max 2 tabs per day or 4 tabs/week (may take with Ibuprofen) 30 days tadalafil (Cialis) 5 mg PO DAILY triamcinolone acetonide 0.1% 1 appl topical DAILY zolpidem 10 mg PO BEDTIME PRN HPI Comments Details: 49-year-old right-handed male presents for follow-up tele-video visit for migraine and to review interval brain MRI results. He reports he is having several migraine attacks per week. He reports Sumatriptan 100mg is helpful, but makes him feel sick nail He also reports that Propranolol is not helping, and may be making things worse. He feels that his mood is more depressed. Other people are telling him that he is taking everything too personally , which he is prone to but not this bad. He also notes increased bouts of dizziness, where he has lost his balance. He also has been noticing cognitive difficulties- forgets what he was about to do or can become distracted. He has just started seeing a new psychiatric provider, through [facility]. He states that they wanted to start him on something new, but it is pending prior auth. He is still seeing his therapist, who he does like. He notes he is extremely needle phobic. 07/13/2025, HPI: MR/MR head/brain wo/w con IMPRESSION: No acute intracranial hemorrhage or acute brain abnormality. No gross abnormal enhancing lesion/mass. Nonspecific white matter T2 FLAIR signal which could be related to patient's with migraines. He states that he has started taking Riboflavin, Magnesium, and Propranolol, which he feels have helped him start feeling better. He states he is having fewer and less severe migraine attacks. Sumatriptan helps alleviate the headache but not the nausea, and may still be necessary to lie down. He still cannot stand for extended periods or lift heavier items. He does note that he can forget what he is doing or why he went into a room. 06/01/2025, initial HPI: The patient is a 49-year-old right-handed male presenting with a headache. He reports a history of headaches that began at least 8 years ago, possibly while he was incarcerated, though he denies any specific precipitating factors such as injury or infection. ?The headaches initially occurred intermittently, with periods of remission and exacerbation. Since his release, they initially lessened in severity but have progressively worsened to nearly daily occurrences. There is a significant impact on his daily activities and relationships due to the severity and persistence of his headaches. Triggers for increased headache severity include stress and exposure to light. Dark environments and cars with tinted windows offer slight relief. Historically, the patient managed his pain with Tylenol and Excedrin, which provided minimal relief. He last saw Neurology, few years ago; however, per the patient, previous neurologists focused on managing his fibromyalgia rather than addressing his headaches. His last eye exam was 6 months ago; he notes that they have had some difficulty finding the right contact lenses. He denies a direct neck injury history. However, he suffered a low back injury approximately 4 years ago, resulting in chronic low back pain with LLE radicular symptoms, and an upper back injury approximately 1 year ago, which affects his upper back and neck as well. He sees his therapist weekly and has just established care with a new psychiatrist through [facility]. 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-C7 producing spinal canal and neural foraminal narrowing Review of Systems - Neurological: Reports headaches, photophobia, and difficulty with balance and thinking; Denies seizures or passing out - Ophthalmologic: Reports tearing and photophobia - Gastrointestinal: Denies vomiting; Reports history of GERD - Psychiatric: Reports anxiety, bipolar disorder Type 1, PTSD, he suspects ADHD - Respiratory: Denies use of CPAP for sleep apnea - Musculoskeletal: Reports fibromyalgia, history of back injuries - Cardiovascular: Denies hypertension; Monitored in the past - Genitourinary: History of sepsis secondary to UTI; resolved Past Medical History - Reviewed the chart, including the following - Fibromyalgia - Chronic Migraines - Generalized Anxiety Disorder - Bipolar I Disorder - Gastroesophageal Reflux Disease (GERD) - Hyperlipidemia - Sleep Apnea (mild, not requiring CPAP) - History of sepsis with UTI origin Pertinent denials include:? Denies history of head injuries, kidney stones, hypertension, blood clots, asthma, COPD, seizure, syncope, thyroid dysfunction, diabetes, and bothersome constipation. ? Family History - Sister with a history of headaches - No specifics on potential tumor mentioned in sister Headache Review Headache questionnaire:? Age/time of onset: At least 2 years ago Preceding causes: No known causes Previous work-up: None Types of headache disorders: Chronic, constant headache Typical headache characteristics: Prodrome symptoms: nausea Aura: unsure Pain intensity: severe Location, quality, characteristics: Usually right-sided or back of head or midfrontal and at left-sided- pounding/stabbing headache. Associated symptoms: eye pain, watery eyes, photophobia, allodynia, nausea, spinning dizziness, not right in space dizziness, lightheadedness, fatigue, cognitive difficulties, activity intolerance. Postdrome: has a constant headache Aggravating factors- very cold packs, light Triggers: stress, light, driving at night Time of day: during the day Duration and Frequency: Constant headache that varies in intensity Headache impacts patient's quality of life: All these things have robbed me of my life. Current acute medication use/interventions: Uses Oxycodone for body pains- does not help headaches. Current preventative medication use: None Current non-pharmacological interventions: rest, sunglasses, dark room, cooler showers, diet changes, drinking fluids. Headache Lifestyle Factors - The patient reports avoidance of caffeine and maintains good hydration - Exercise not performed due to pain and limitations from fibromyalgia - Sleep pattern affected by headaches; details of sleep hygiene not explicitly mentioned - The patient does have a 2-year-old female dog, Peamichelle, who accompanies the patient today. 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 He is mindful of staying hydrated and has a history of GERD, for which dietary modifications have been made. Exercise The patient is unable to exercise due to fibromyalgia and physical limitations, despite previous enjoyment in barbering. Sleep - Reports difficulty sleeping due to pain and headaches - Does not use CPAP machine for diagnosed mild sleep apnea Substance Use History Denies any current substance use Employment - Formerly employed as a brown - Unable to work currently due to physical limitations from fibromyalgia [facility] Medical History Skin lesion Epidermal inclusion cyst Family history of brain tumor Surgical History Hx of surgical procedure (07/18/25) Family History Father Pancreatic cancer Mother Ovarian cancer Maternal Grandfather Stomach cancer Social History Housing: Apartment Alcohol intake: current Alcohol type: beer Patient Tobacco Use Status: Current someday Tobacco user (once per month ) Tobacco use type: Cigar e-Cigarette/Vaping Use: Never Used Second Hand Smoke Exposure: Yes Substance Use Type: Marijuana service: No Current occupational status: unemployed Cognitive needs: Yes (Cane) Hearing needs: No Vision needs: Yes (Glasses) Physical Exam Vital Signs: Last Vital Signs Pulse 83 08/08/25 15:59 BP 110/80 08/08/25 15:59 Pulse Ox 95 08/08/25 15:59 Oxygen Delivery Method Room Air 08/08/25 15:59 BMI result Body Mass Index 28.1 Const Orientation/consciousness: patient oriented x3 Resp Effort & Inspection: normal respiratory effort and able to speak in complete sentences Neuro Other: Photophobic Antalgic gait with cane General: patient oriented x3 and moves all extremities Cranial nerves: Yes CN's II-XII intact bilaterally Cognition (Neuro): normal cognition Psych Appearance: grossly normal Mental Status: mental status grossly normal Affect: normal affect Attitude: cooperative Thought process: Normal thought process present Results Reviewed Results Reviewed: Previous work-up: Narrative & Impression [facility] Diagnostic Imaging Department [address] [place] [id number] Patient: MAC ROSENDO FLORES./Age/Sex: 1975 - 47 - M Unit#: [id number] Location/Status: SPDIMRI/REG CLI Mnemonic/Ordering Site: [facility] Ordering Physician: HANG RIVAS DO MR Cervical Spine WO - 12/24/22 - MRI of the cervical spine: December 24, 2022 at 1536 hours Clinical History: Radiculopathy. Technique: Multiplanar multiecho MRI sequences of the cervical spine were performed without intravenous contrast. Comparison: No prior study is available for comparison at the time of interpretation. Findings: The height and alignment of the vertebral bodies are within normal limits. The marrow signal is unremarkable. No fracture is seen. The cervicomedullary junction is within normal limits. The caliber and signal intensity of the spinal cord to the extent visualized are within normal limits. The pre and paraspinal soft tissues are unremarkable. C1/2: There is no central canal narrowing. The facet joints are within normal limits. C2/3: The disc height is within normal limits. The disc signal is decreased.There is no disc contour abnormality, central canal or neural foraminal narrowing. The facet joints are within normal limits. C3/4: The disc height is within normal limits. The disc signal is decreased. There is no disc contour abnormality, central canal or neural foraminal narrowing. The facet joints are within normal limits. C4/5: The disc height is within normal limits. The disc signal is decreased. There is a small central disc protrusion, causing mild central canal narrowing and no significant neural foraminal narrowing. The facet joints are within normal limits. C5/6: The disc height is within normal limits. The disc signal is decreased. There is no disc contour abnormality, central canal or neural foraminal narrowing. The facet joints are within normal limits. C6/7: The disc height is within normal limits. The disc signal is decreased.. There is a small right paracentral/foraminal disc protrusion, causing mild central canal narrowing and moderate right neural foraminal narrowing. The facet joints are within normal limits. C7/T1: The disc height is within normal limits. The disc signal is decreased. There is no disc contour abnormality, central canal or neural foraminal narrowing. The facet joints are within normal limits. 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 Assessment & Plan Assessment & Plan (1) Chronic migraine without aura: Code(s): G43.709 - Chronic migraine without aura, not intractable, without status migrainosus Category: Medical Qualifiers: Status migrainosus presence: without status migrainosus Intractability: not intractable Qualified Code(s): G43.709 - Chronic migraine without aura, not intractable, without status migrainosus (2) Photophobia: Code(s): H53.149 - Visual discomfort, unspecified Category: Medical (3) Nausea: Code(s): R11.0 - Nausea Category: Medical (4) Bipolar I disorder with depression: Comment: Follows with [facility] Code(s): F31.9 - Bipolar disorder, unspecified Category: Medical Plan For overall headache management: * Optimize good self-care, including but not limited to maintaining a healthy diet, adequate fluid intake, adequate sleep, and engaging in regular physical activity. * Track headaches and both positive and negative effects of your headache treatment trials, especially after any treatment regimen changes. * Migraine [employer] is one of many headache tracking apps. * A simple paper calendar is also a good option. * Non-pharmacological interventions which may help to alleviate your headache attack frequency, severity, and associated symptoms: For light sensitivity: You may benefit from trying blue light filtering glasses, FL-41 blue light filter in glasses, green glasses, green light therapy. Avoid wearing traditional sunglasses inside. For sound sensitivity: You may benefit from trying noise cancellation ear plugs. Neuromodulation devices, which can be used alone or with pharmacological treatment. For acute (as needed) headache treatment: It is important to take acute medications at the first sign of headache. However, please be aware that frequently using most acute medications may increase the frequency of your headache attacks, as well as make your other treatments less effective.. * Discontinue Sumatriptan 100mg tab * Trial Rizaatriptan 10mg tab, 1/2 - 1 tab (5-10mg) at onset of headache, may repeat in 2 hours. Max of 3 tabs (30mg) per 24 hours. * You may take Rizaatriptan with OTC Tylenol 650-1,000mg every 4-6 hours, Ibuprofen (liquid gels) 600mg every 6 hours, or Naproxen (liquid gels) 440mg q 12 hrs prn. * Potential adverse effects of triptans, include but are not limited to nausea, fatigue, chest tightness/tingling (usually passes within a few minutes), medication overuse headaches. * Ondansetron ODT 4 mg, 1-2 tabs every 4-6 hours as needed for migraine with nausea and vomiting. Previous acute migraine medication trials: Tylenol and Excedrin- ineffective. Sumatriptan was effective, but made him feel ill. Acute migraine medication contraindications: None at this time For headache prevention medication: Preventative medications should be taken routinely as prescribed for best effect, it may take several weeks for full effect to take effect. * Continue Riboflavin 400mg daily in the morning * Continue Magnesium 400mg daily at bedtime * Discontinue Propranolol ER 60 mg daily at bedtime- likely exacerbating mood and dizziness symptoms * Start propranolol taper with propranolol IR 10 mg tab: 2 tabs b.i.d. x7 days, then 1 tab b.i.d. x7 days, then 1 tab qhs x7 days, then stop * Start depakote 250mg BID- may help mood as well as migraine * if tolerated, check cbc, cmp, depakote level in 1 month * Start Atogepant (Qulipta) 60mg daily at bedtime. * Potential side effects include but are not limited to drowsiness, nausea, constipation, weight loss. Previous migraine prevention medication trials: Gabapentin 900 mg TID- ineffective Migraine prevention medication contraindications: Antidepressants due to symptomatic bipolar type 1. All CGRP MaBs due to marked needle phobia since childhood. Follow-up clinic visit in 3 months as scheduled, or sooner as needed. Orders: Orders Complete Blood Count Auto Diff Today R79.89 - Other specified abnormal findings of blood chemistry, Z79.899 - Other intermediate manager (current) drug therapy Comprehensive [place]. Panel Fast Today R79.89 - Other specified abnormal findings of blood chemistry, Z79.899 - Other intermediate manager (current) drug therapy Valproate Today R79.89 - Other specified abnormal findings of blood chemistry, Z79.899 - Other care home (current) drug therapy Medications: New propranolol Two tabs b.i.d. X7D, 1 tab b.i.d. X7D, 1 tab q.h.s. X7D, then stop orally .; 49 tabs 0RF 21 days divalproex (Depakote) 250 mg PO Q12H 60 tabs 3RF 30 days G43.709 - Chronic migr burak without aura, not intractable, without status migrainosus atogepant (Qulipta) 60 mg PO DAILY 30 tabs 6RF 30 days G43.709 - Chronic migraine without aura, not intractable, without status migrainosus rizatriptan max 3 tabs per day or 6 tabs per week 5 - 10 mg (0.5 - 1 x 10 mg) PO Q2H PRN 12 tabs 3RF migraine headache 21 days Discontinued propranolol ER Discontinued Reason: Doctor's Order 60 mg PO BEDTIME 30 days 30 caps 6RF sumatriptan succinate Discontinued Reason: Doctor's Order (0.5 - 1 x 100 mg) 50 - 100 mg orally at onset of headache, may repeat in 2 hrs PRN; max 2 tabs per day or 4 tabs/week (may take with Ibuprofen) 30 days 12 tabs 6RF migraine headache Coding Level of Care Code Est Pt Level 4 (20705) Diagnoses Chronic migraine without aura without status migrainosus, not intractable G43.709 Status migrainosus presence: without status migrainosus Intractability: not intractable Photophobia H53.149 Nausea R11.0 Bipolar I disorder with depression F31.9
== END 2025-08-09 08:26 | disposition home or self-care (01) ==
LOC: HO.HSMS 15:53
PROVIDERS: Visit Provider Nurse Practitioner Family
DX: G43.709 Chronic migraine without aura, not intractable, without status migrainosus (principal); H53.149 Visual discomfort, unspecified; R11.0 Nausea; F31.9 Bipolar disorder, unspecified
CPT/HCPCS: 99214

== ENCOUNTER 2025-08-21 13:46 | Outpatient (AMB) | payer OTHER, SELFPAY ==
--- OUTSIDE RECORDS SUMMARY | 2025-08-15 17:12 | XMS_ITS | Encounter Summary ---
Author Organization [facility] Address [address] [place] [address] Care Team Providers Care Human Factors Specialist Name Role Phone Snow Velasquez MD Primary Care Provider [phone] Reason for Referral * Imaging (Routine) - Closed Specialty Diagnoses / Procedures Referred By Rajan peters Referred To Contact Radiology Diagnoses Cervicalgia Radiculopathy, cervical region Procedures MR Cervical Spine wo Contrast Valdemar Reynoso PA [address] [place] [address] Phone: tel: fax: [address] Phone: tel: Referral ID Status Reason Start Date Expiration Date Visits Re quested Visits Authorized [id number] Closed 08/03/2025 08/03/2026 1 1 Reason for Visit * Imaging (Routine) - Closed Specialty Diagnoses / Procedures Referred By Rajan peters Referred To Contact Radiology Diagnoses Cervicalgia Radiculopathy, cervical region Procedures MR Cervical Spine wo Contrast Valdemar Reynoso PA [address] [place] [address] Phone: tel: fax: [address] Phone: tel: Referral ID Status Reason Start Date Expiration Date Visits Re quested Visits Authorized [id number] Closed 08/03/2025 08/03/2026 1 1 Encounter Details Date Type Department Care Team (Latest Contact Info) Description 08/15/2025 6:12 PM EDT - 08/15/2025 11:59 PM EDT Hospital Encounter Radiology Department - [address] [phone] Cervicalgia; Radiculopathy, cervical region Discharge Disposition: Home or Self Care Social History Tobacco Use Types Packs/Day Years [...] on file Sexual Orientation Not on file documented as of this encounter Medications at Time of Discharge acetaminophen (TYLENOL) 325 mg tablet TAKE 2 TABLETS BY MOUTH 3 TIMES A DAY DAILY NEEDED FOR OTHER PAIN 02/04/2024 busPIRone (BUSPAR) 30 mg tablet TK 1 T PO TID 07/23/2020 cholecalciferol (VITAMIN D-3) 50 mcg (2,000 unit) tablet Take 1 tablet (2,000 Units total) by mouth 1 (one) time each day. 08/31/2023 clonazePAM (KlonoPIN) 0.5 mg tablet Take 1 Tab by mouth 2 times daily as needed for Anxiety. 11/12/2018 cyclobenzaprine (FLEXERIL) 10 mg tablet 10/19/2023 fluticasone propionate (FLONASE) 50 mcg/actuation nasal spray 2 Sprays by Nasal route daily. 08/31/2023 loratadine (CLARITIN) 10 mg tablet Take 1 Tablet by mouth daily. 01/10/2024 lurasidone (Latuda) 20 mg tablet Take 1 Tablet by mouth daily. 05/03/2022 oxyCODONE-acetami nophen (PERCOCET) 5-325 mg per tablet TAKE 1 TABLET BY MOUTH FOUR TIMES A DAY FOR 7 DAYS 05/24/2023 terbutaline (BRETHINE) 5 mg tablet TAKE ONE TABLET BY MOUTH AT ONSET OF PRIAPISM. MAY REPEAT AFTER 8 HOURS IF PRIAPISM STILL PRESENT 07/07/2023 zolpidem (AMBIEN) 10 mg tablet Take 10 mg by mouth at bedtime. documented as of this encounter Discharge Disposition Disposition Code Departure Means Destination Home or Self Care documented in this encounter Plan of Treatment Upcoming Encounters Date Type Department Care Team (Late st Contact Info) Description 11/12/2025 1:15 PM EST Office Visit Pulmonology - [place] [address] [facility] [address] [place] [phone] Simba Raymond MD [address] [place] [phone] documented as of this encounter Procedures Procedure Name Priority Date/Time Associated Diagnosis Comments MR CERVICAL SPINE WO CONTRAST Routine 08/15/2025 6:55 PM EDT Cervicalgia Radiculopathy, cervical region documented in this encounter Results * MR Cervical Spine wo Contrast (08/15/2025 6:55 PM EDT) Anatomical Region Laterality Modality C-spine, Spine Magnetic Resonan ce 08/17/2025 1:34 PM EDT Impressions 08/17/2025 1:56 PM EDT Impression: Multilevel degenerative changes worse at C6-C7 with severe bilateral neuroforaminal stenosis and moderate to severe spinal canal stenosis. Findings are mildly progressive from prior exam -------- FINAL REPORT -------- Dictated By: Bakari Bills Dictated Date: 08/17/2025 13:34 ET Assigned Physician: Bakari Bills Reviewed and Electronically Signed By: Bakari Bills Signed Date: 08/17/2025 13:56 ET Workstation ID: [id number] Transcribed By: Self Edit Transcribed Date: 08/17/2025 13:34 ET Narrative 08/17/2025 1:56 PM EDT MRI CERVICAL SPINE Clinical Statement: neck and low back pain Comparison: None Technique: Multiplanar, multisequence MRI images of the cervical spine were obtained without intravenous contrast. Findings: There is mild straightening of the cervical spine. The craniocervical junction is within normal limits. Vertebral body height is maintained. Decreased disc height at C5-C6 and C6-C7. Vertebral body marrow signal is within normal limits. Cord signal is normal. The visualized posterior fossa structures are normal. C2-C3: Central disc protrusion without neuroforaminal or spinal canal stenosis is C3-C4: Broad-based disc bulge eccentric to the right, central disc protrusion with mild right neuroforaminal stenosis, no left-sided neuroforaminal stenosis or spinal canal stenosis C4-C5: Broad-based disc bulge and central disc protrusion, no neuroforaminal stenosis bilaterally. Mild spinal canal stenosis is present C5-C6: Broad-based disc bulge without neuroforaminal or spinal canal stenosis C6-C7: Broad-based disc bulge and uncovertebral arthropathy resulting in severe bilateral neuroforaminal stenosis and moderate to severe spinal canal stenosis C7-T1: Broad-based disc bulge without neuroforaminal or spinal canal stenosis Procedure Note Bakari Bills MD - 08/17/2025 MRI CERVICAL SPINE Clinical Statement: neck and low back pain Comparison: None Technique: Multiplanar, multisequence MRI images of the cervical spinewere obtained without intravenous contrast. Findings: There is mild straightening of the cervical spine. Thecraniocervical junction is within normal limits. Vertebral body height ismaintained. Decreased disc height at C5-C6 and C6-C7. Vertebral bodymarrow signal is within normal limits. Cord signal is normal. Thevisualized posterior fossa structures are normal. C2-C3: Central disc protrusion without neuroforaminal or spinal canalstenosis is C3-C4: Broad-based disc bulge eccentric to the right, central discprotrusion with mild right neuroforaminal stenosis, no left-sidedneuroforaminal stenosis or spinal canal stenosis C4-C5: Broad-based disc bulge and central disc protrusion, noneuroforaminal stenosis bilaterally. Mild spinal canal stenosis ispresent C5-C6: Broad-based disc bulge without neuroforaminal or spinal canalstenosis C6-C7: Broad-based disc bulge and uncovertebral arthropathy resulting insevere bilateral neuroforaminal stenosis and moderate to severe spinalcanal stenosis C7-T1: Broad-based disc bulge without neuroforaminal or spinal canalstenosis IMPRESSION: Impression: Multilevel degenerative changes worse at C6-C7 with severe bilateralneuroforaminal stenosis and moderate to severe spinal canal stenosis.Findings are mildly progressive from prior exam -------- FINAL REPORT -------- Dictated By: Bakari Bills Dictated Date: 08/17/2025 13:34 ET Assigned Physician: Bakari Bills Reviewed and Electronically Signed By: Bakari Bills Signed Date: 08/17/2025 13:56 ET Workstation ID: [id number] Transcribed By: Self Edit Transcribed Date: 08/17/2025 13:34 ET Valdemar SHEETS IMG MRI PROCEDURES Final Resul t documented in this encounter Visit Diagnoses Diagnosis Cervicalgia Radiculopathy, cervical region Brachial neuritis or radiculitis nos documented in this encounter Care Teams Human Factors Specialist Relationship Specialty Start Date End Date Snow Velasquez MD [address] [place] [id number] PCP - General Internal Medicine 03/10/17 documented as of this encounter
--- NOTE | 2025-08-21 13:47 | A.OFFVIS_ITS ---
Intake Visit Reasons: 6m follow up Intake Note: Patient is present for 6mo follow up Urology Medication:Tadalafil Antibiotic Allergy:NONE Blood Thinner:NONE Director Advanced Required: No Accompanied by: Self / Same As Patient Allergies No Known Allergies (No Known Allergies*) Allergy (Verified 08/21/25 13:57) HPI Comments Details: Vinnie is a pleasant male. He is seen for the following urologic conditions - stuttering priapism Did notice when placed on atorvastatin he had some improvement with the stuttering priapism This is consistent with a known testosterone effect from statins Is willing to try a high potency statin Prescribed rosuvastatin 20 mg Three-month follow-up Stuttering priapism Prior evaluation with [facility] and [facility] Undergone multiple evaluations for sickle cell anemia and leukemia with Hematology which have all been negative Has recurrent priapism with multiple ER presentations Has difficulty with phenylephrine injections and unable to perform at home Only prior recommendation has been on demand terbutaline Prior medications include finasteride 5 mg daily, ketoconazole induction followed by ketoconazole daily Ketoconazole protocol ketoconazole 200 mg t.i.d. for 14 days with prednisone 5 mg daily then daily ketoconazole for six-month Cialis every other day 5 mg Lisbeth MP, Mady LA. Prevention of recurrent ischemic priapism with ketoconazole: evolution of a treatment protocol and patient outcomes. J Sex Med. 2014 Oct;11(1):197-204 Using GnRH (gonadotropin-releasing hormone) for stuttering priapism, - medical literature and expert opinion support its use as a potential treatment option for recurrent priapism, often in conjunction with other therapies, due to its ability to lower testosterone levels and potentially reduce episodes of priapism;?however, careful monitoring is necessary due to potential side effects like hypogonadism and the need to consider individual patient factors before initiating treatment ? Ze HR, Alanna O, Robin TJ. Medical management of ischemic stuttering priapism: a contemporary review of the literature. J Androl. 2012 Oct;14(1):156-63. doi: 10.1038/ely.2011.114. Epub 2010Aug 24. PMID: [id number]; PMCID: [id number] [facility] Medical History Skin lesion Epidermal inclusion cyst Family history of brain tumor Surgical History Hx of surgical procedure (07/18/25) Family History Father Pancreatic cancer Mother Ovarian cancer Maternal Grandfather Stomach cancer Social History Housing: Apartment Alcohol intake: current Alcohol type: beer Patient Tobacco Use Status: Current someday Tobacco user (once per month ) Tobacco use type: Cigar e-Cigarette/Vaping Use: Never Used Second Hand Smoke Exposure: Yes Substance Use Type: Marijuana service: No Current occupational status: unemployed Cognitive needs: Yes (Cane) Hearing needs: No Vision needs: Yes (Glasses) Review of Systems Const Denies chills and Denies fever(s) Card Reports no additional complaints and Denies syncope Resp Denies cough GI Denies abdominal pain and Denies heartburn Reports as per HPI and Denies change in libido Neuro Denies syncope Psych Denies change in libido Endo Denies change in libido Physical Exam Const General: cooperative, healthy appearing, comfortable and no acute distress Orientation/consciousness: patient oriented x3 HEENT Face and sinus: Yes normal facial exam Mouth: moist mucous membranes Neck Neck: Yes normal visual inspection, Yes full ROM and Yes trachea midline Chest Chest palpation & inspection: normal inspection of the chest Resp Effort & Inspection: normal respiratory effort, able to speak in complete sentences and no respiratory distress GI Inspection: Yes normal to inspection Back/Spine/Pelvis Cervical Spine: normal cervical lordosis Thoracic/Lumbar Spine: thoracic and lumbar spine normal to inspection Skin General skin exam: no rashes or lesions noted Neuro General: patient oriented x3, gait normal, tone normal and moves all extremities Extrem General: Yes normal to inspection and Yes capillary refill normal Assessment & Plan Assessment & Plan (1) Hypercholesterolemia: Code(s): E78.00 - Pure hypercholesterolemia, unspecified Category: Medical Plan Three-month follow-up Medications: New rosuvastatin 20 mg PO DAILY 90 tabs 0RF 90 days E78.00 - Pure hypercholesterolemia, unspecified, N48.39 - Other priapism Discontinued atorvastatin (Lipitor) Discontinued Reason: Patient Completed Course 10 mg PO BEDTIME 90 tabs 0RF Patient Instructions: This note is constructed using voice recognition software. While every effort has been made to ensure accuracy director of manufacturing errors may have been included. Imaging studies, laboratory and physical exam results were discussed and reviewed in detail. No major barriers to patient understanding were identified. An opportunity to ask questions regarding the treatment plan was provided. All questions were answered. The patient expressed understanding and agreement with the above treatment plan. The patient is aware they should contact our office by phone for worsening of their current condition or the appearance of new urologic symptoms. Compliance is encouraged with any medications and followup testing that is ordered. It is a privilege to participate in the urologic care of your patient. If you have any questions or concerns regarding treatment for the above conditions, or other urologic issues, please do not hesitate to contact me. The office telephone contact is [phone]. Sincerely, Dr Kalpesh Mathew MD, [facility] - Urology Compassionate Specialist Care for the Genitourinary System Coding Level of Care Code Est Pt Level 4 (44286) Diagnoses Hypercholesterolemia E78.00
--- OUTSIDE RECORDS SUMMARY | 2025-08-21 16:55 | XMS_ITS | Clinical Summary ---
Author Organization [facility] Address [address] [place] [address] Care Team Providers Care Datastage Architect Name Role Phone Snow Velasquez MD Primary Care Provider [phone] Allergies No known active allergies Medications Medication [...] age to complete this topic Care Teams Datastage Architect Relationship Specialty Start Date End Date Snow Velasquez MD PCP - General Internal Medicine 11/24/23
--- OUTSIDE RECORDS SUMMARY | 2025-08-21 16:55 | XMS_ITS | Clinical Summary ---
Author Organization [address] [facility] Address [address] [place] [address] Phone Care Team Providers Care Program Attendant Name Role Phone Snow Velasquez MD Primary Care Provider [phone] Allergies Active Allergy Reactions Criticality Noted Date [...] stress disorder) 03/08/2017 Recurrent major depressive disorder ([facility] V24 ) 03/08/2017 Encounters Date Type Department Care Team Description 08/15/2025 6:12 PM EDT - 08/15/2025 11:59 PM EDT Hospital Encounter Radiology Department - [address] [phone] Cervicalgia; Radiculopathy, cervical region Discharge Disposition: Home or Self Care from Last 3 Months Immunizations Immunization Administration [...] 1:15 PM EST Office Visit Pulmonology - [address] [place] [address] Simba Raymond MD [address] [place] [phone] Health Maintenance Due Date Last Done Comments [...] 6:55 PM EDT Cervicalgia Radiculopathy, cervical region LIPID PANEL Routine 01/10/2024 HEPATITIS C SCREENING Routine 02/04/2022 HIV SCREENING Routine 09/28/2019 from Last 3 Months or Most Recently Relevant to Health Maintenance Results * MR Cervical Spine wo Contrast [...] Signed Date: 08/17/2025 13:56 ET Workstation ID: [id number] Transcribed By: Self Edit Transcribed Date: 08/17/2025 [...] Signed Date: 08/17/2025 13:56 ET Workstation ID: [id number] Transcribed By: Self Edit Transcribed Date: 08/17/2025 13:34 ET Valdemar SHEETS IMG MRI PROCEDURES Final Resul t * (ABNORMAL) Lipid panel (01/10/2024) LDL/HDL Ratio 4 0 - 4 Triglycerides 136 0 - 150 mg/dL Cholesterol 256(A) 0 - 200 mg/dL HDL 71 >=40 mg/dL LDL Cholesterol 158(A) 0 - 100 mg/dL Blood Venous blood specimen / Unknown Historical Provider LAB BLOOD ORDERABLES Ashli l Result * Hepatitis C Screening (02/04/2022) Hepatitis C Screening abstracted us Historical Provider HEALTH MAINTENANCE Final Result * HIV Screening (09/28/2019) HIV Screening abstrated us Historical Provider HEALTH MAINTENANCE Final Result from Last 3 Months or Most Recently Relevant to Health Maintenance Insurance [facility] [employer] Care Teams Program Attendant Relationship Specialty Start Date End Date Snow Velasquez MD [address] [place] [address] PCP - General Internal Medicine 03/10/17
== END 2025-08-21 14:25 | disposition home or self-care (01) ==
LOC: HO.HUSH 13:47
PROVIDERS: Visit Provider Urology
DX: E78.00 Pure hypercholesterolemia, unspecified (principal)
CPT/HCPCS: 99214

== ENCOUNTER → 2025-08-21 13:46 | Outpatient (BNVA) | payer OTHER, SELFPAY | PROVIDERS: Visit Provider Urology | CPT/HCPCS: 99212 ==